=== PATIENT | female | born 1965 | race Caucasian/White ===

== ENCOUNTER 2018-07-24 16:27 | Outpatient (CLI) | payer MEDICARE, SELFPAY ==
--- NOTE | 2018-07-24 16:14 | DI.RAD_ITS ---
SYMPTOM/DIAGNOSIS: COUGH, R05, METASTATIC BREAST CA, C50.919 PA AND LATERAL CHEST: No priors. Heart size and pulmonary vasculature are within normal limits. There is mild elevation of the right hemidiaphragm. Linear opacities are seen in the right base which may represent scarring or atelectasis. There are air space opacities seen in the lungs bilaterally, predominantly in the left lung base, lower lobe and lingula. No gross effusions or pneumothoraces are identified. There do appear to be bilateral healed rib fractures. Surgical clips are seen over the right hemithorax and in the right axilla. IMPRESSION: Bilateral opacities in the lungs, left greater than right. Differential considerations include atelectasis or pneumonia. Metastatic disease cannot be excluded. A CT scan of the chest with contrast should be considered for further evaluation.
--- NOTE | 2018-07-24 16:36 | DI.VRAD_ITS ---
EXAM: XR Chest, 2 Views EXAM DATE/TIME: 07/24/2018 4:16 PM CLINICAL HISTORY: 53 years old, female; Signs and symptoms; Other: Cough; Patient HX: Metastatic breast CA TECHNIQUE: XR of the chest, 2 views. COMPARISON: No relevant prior studies available. FINDINGS: Lungs: Linear opacities in the right lower lobe most likely represent scarring. Small airspace opacities project over the lingula. Pleural space: Unremarkable. No pleural effusion. No pneumothorax. Heart/Mediastinum: Unremarkable. No cardiomegaly. Bones/joints: Unremarkable for patient's age. Soft tissues: Surgical clips project over the right axilla and right breast. IMPRESSION: 1. Small airspace opacities project over the lingula. Given history of breast cancer, recommend further evaluation with CT. Or 2. Linear opacities in the right lower lobe most likely represent scarring. Dictated and Authenticated by: Dada Martínez MD. Ordering:NATASHA BEATTY MD
== END 2018-07-24 16:47 ==
PROVIDERS: PCP Nurse Practitioner; Visit Provider Family Medicine
DX: R05 Cough (principal); C50.919 Malignant neoplasm of unspecified site of unspecified female breast; J98.4 Other disorders of lung; R91.8 Other nonspecific abnormal finding of lung field
CPT/HCPCS: 71046

== ENCOUNTER 2018-07-27 01:33 | Outpatient (CLI) | payer MEDICARE, SELFPAY ==
[2018-07-27 14:00] LABS: CREATININE 0.67 mg/dL (0.55-1.02)
[2018-07-27] MEDS: Omnipaque 350 MG/ML 100 ML BTL IJ (14:53)
--- NOTE | 2018-07-27 14:57 | DI.CT_ITS ---
SYMPTOM/DIAGNOSIS: LUNG MASS, R91.8, COUGH, R05, METASTATIC BREAST CA, C50.919 , LINGULAR OPACITIES CHEST CT: Post contrast CT scan of the chest was performed. Comparison chest xray is . The thyroid gland is enlarged with multiple hypodense masses. The thyroid extends into the retrosternal region. The largest mass is seen in the right lobe of the thyroid gland and measures 2.5 cm. transverse by 2.3 cm. AP. Thyroid ultrasound may be obtained for further evaluation. The thoracic aorta is intact. No aneurysmal dilatation is seen. Heart size is within normal limits. No significant pericardial effusion is present. No significant mediastinal or axillary adenopathy is present. No pleural effusion or pneumothorax is identified. There are small areas of consolidation involving the medial aspect of the right lower lobe and the lateral aspect of the left lingula. No non calcified pulmonary nodules are present. There is scarring in the lungs. The tracheobronchial tree is unremarkable. There do appear to be areas of traction bronchiectasis within the left lingular infiltrate. There are several hypodense lesions within the liver. There are old healed bilateral rib fractures present. Degenerative changes are seen in the spine. IMPRESSION: 1. No pulmonary nodules or thoracic adenopathy. 2. Areas of consolidation involving the right lower lobe and the left lingula. These areas may represent pneumonia, scarring or atelectasis. 3. Multi nodular thyroid gland. If further imaging is warranted, an ultrasound may be obtained. 4. Several hypodense lesions seen within the liver. Comparison with prior CT scan is recommended if available.
== END 2018-07-27 01:53 ==
PROVIDERS: PCP Nurse Practitioner; Visit Provider Family Medicine
DX: R91.8 Other nonspecific abnormal finding of lung field (principal); R05 Cough; C50.919 Malignant neoplasm of unspecified site of unspecified female breast; R04.2 Hemoptysis; K76.9 Liver disease, unspecified
CPT/HCPCS: 36415; 71260; 82565; J3490

== ENCOUNTER 2018-08-02 12:53 | Outpatient (REF) | payer MEDICARE, SELFPAY ==
[2018-08-02 19:19] LABS: TSH (W/Ref FT4) 0.12 uIU/mL (0.358-3.74)
[2018-08-02 19:39] LABS: FREE T4 1.08 ng/dL (0.76-1.46)
== END 2018-08-02 13:13 ==
LOC: NCHCN 12:53
PROVIDERS: PCP Nurse Practitioner; Visit Provider Family Medicine
DX: E04.2 Nontoxic multinodular goiter (principal)
CPT/HCPCS: 84439; 84443

== ENCOUNTER 2018-12-11 09:20 | Outpatient (CLI) | payer MEDICARE, SELFPAY ==
--- NOTE | 2018-12-11 09:30 | DI.CT_ITS ---
SYMPTOM/DIAGNOSIS: BREAST CA, METS TO MULTIPLE SITES, C50.919, RESTAGING EVALUATION CHEST, ABDOMEN AND PELVIC CT: CT scan of the chest, abdomen and pelvis was performed following oral and intravenous contrast material. Comparison CT scan of the chest is 07/27/18. ABDOMEN AND PELVIS: There are no prior CT scans of the abdomen and pelvis for comparison. The liver is normal in size. There are several round, well circumscribed hypodense lesions in the liver. Some are too small for further characterization. The larger ones appear mostly to be of fluid density and may represent cysts. These appear stable compared to the examination from 2018. The portal, superior mesenteric and splenic veins are patent. The gallbladder is negative. There is no biliary ductal dilatation. The pancreas, spleen and adrenal glands are unremarkable. The kidneys show normal and symmetric enhancement. No solid renal mass or obstruction is identified. There is a cyst in the mid pole of the right kidney. The urinary bladder is intact. Reproductive organs are unremarkable. The abdominal aorta is of normal caliber. No significant abdominal or pelvic adenopathy, ascites or pneumoperitoneum is present. The bowel shows no evidence of obstruction or inflammation. No findings to suggest an acute appendicitis are present. No aggressive osseous lesions are seen. A hemangioma is seen in the L 1 vertebral body. This is unchanged compared to 07/27/18. IMPRESSION: 1. Multiple hypodense lesions seen within the liver which appear stable. Sonographic correlation is recommended to assess for cystic or solid nature. No new hepatic lesions are identified. 2. Right renal cyst. CHEST: There is again seen an enlarged, multinodular thyroid gland extending into the retrosternal region. The thoracic aorta is of normal caliber. Heart size is within normal limits. No significant pericardial effusion is present. No significant thoracic adenopathy is appreciated. No pleural effusion or pneumothorax is identified. No pulmonary nodules are seen. There is scarring or atelectasis in the right lung. Tracheobronchial tree is unremarkable. No aggressive osseous lesions are identified in the spine. There are bilateral old rib fractures which appear stable. IMPRESSION: 1. No evidence of thoracic adenopathy or pulmonary nodules. 2. Enlarged multi nodular thyroid gland. 3. COPD. 4. Stable bilateral old rib fractures.
[2018-12-11 10:47] LABS: Abs Immature Grans 0.03 k/cumm (0.0-0.09); Absolute Basophil Count 0.03 k/cumm (0.0-0.2); Absolute Eosinophil Count 0.12 k/cumm (0.0-0.7); Absolute Lymphocyte Count 2.22 k/cumm (1.2-3.4); Absolute Neutrophil Count 3.21 k/cumm (1.2-6.7); Basophils % 0.5; HCT 41.9 % (36.0-46.0); HGB 14.1 g/dL (12.0-15.5); Immature Grans % 0.5; Lymphocytes % 36.3; Mean Corp. HGB Concentration 33.7 g/dL (32.0-36.0); Mean Corpuscular Hemoglobin 29.4 pg (27.0-33.0); Mean Corpuscular Volume 87.3 fL (80-95); Mean Platelet Volume 8.5 fL (8.0-11.0); Monocytes % 8.2; Neutrophils % 52.5; Platelet Count 216 x1000/uL (130-400); RBC Distribution Width 13.2 % (11.7-14.6); White Blood Cell Count 6.11 k/cumm (4.4-10.8)
[2018-12-11 11:02] LABS: ALT 28 U/L (12-78); AST 18 U/L (15-37); Albumin 3.4 g/dL (3.4-5.0); Alkaline Phosphatase 56 U/L (46-116); Anion Gap 5.8 mmol/L (3-11); BUN 17 mg/dL (7-18); Bilirubin, Total 0.4 mg/dL (0.2-1.0); CO2 30.2 mmol/L (21.0-32.0); Chloride 102 mmol/L (98-107); Glucose 98 mg/dL (70-100); Sodium 138 mmol/L (136-145); Total Protein 7.1 g/dL (6.4-8.2)
[2018-12-11] MEDS: Omnipaque 350 MG/ML 50 ML BTL IJ (11:40)
[2018-12-11] MEDS: Breeza Beverage 473 ML BTL PO (11:41)
[2018-12-11] MEDS: Omnipaque 350 MG/ML 100 ML BTL IJ (11:41)
--- NOTE | 2018-12-11 13:57 | DI.NM_ITS ---
SYMPTOM/DIAGNOSIS: BREAST CA, METS TO MULTIPLE SITES, C50/919, RESTAGING EXAM BONE SCAN: The patient received 25.8 millicuries of Technetium 99 M MDP and whole body imaging was performed. Comparison CT scans from 07/27/18 and 12/11/18 were reviewed. There is normal radiotracer uptake in the kidneys and urinary bladder. Foci of increased radiotracer uptake are seen in the left ninth and the right ninth rib posterior, unchanged from previous exams. IMPRESSION: No findings to suggest osseous metastatic disease.
[2018-12-12 09:11] LABS: CEA 0.5 ng/ml
== END 2018-12-11 09:40 ==
PROVIDERS: PCP Nurse Practitioner; Visit Provider Internal Medicine
DX: C50.919 Malignant neoplasm of unspecified site of unspecified female breast (principal); Z12.89 Encounter for screening for malignant neoplasm of other sites; E04.2 Nontoxic multinodular goiter; J44.9 Chronic obstructive pulmonary disease, unspecified; K76.89 Other specified diseases of liver
CPT/HCPCS: 36415; 74177; 78306; 80053; 71260; 82378; 85025; J3490; Q9967

== ENCOUNTER 2018-12-12 00:44 | Outpatient (CLI) | payer MEDICARE, SELFPAY ==
[2018-12-12] MEDS: Gadoterate meglumine 20 ML VIAL 15 ML IVP (11:32)
--- NOTE | 2018-12-12 11:46 | DI.MRI_ITS ---
SYMPTOMS/DIAGNOSIS: RESTAGING, BREAST CA WITH METS TO MULTIPLE SITES, H/O BRAIN METS, C50.919, C79.31 MRI OF THE BRAIN: Pre and post contrast examination was performed. Comparison CT scan is 03/24/13. There are again seen areas of encephalomalacia and postsurgical defects in the left and right parietal lobes. These appear stable compared to 03/24/13. The diffusion weighted images show no evidence of an acute infarct. The ventricles and sulci are consistent with the patient's age. There are areas of T2 hyperintensity in the white matter most consistent with small vessel ischemic disease. Following contrast administration, no enhancing masses are appreciated to suggest new intracranial metastatic disease. The ventricles are intact. The basilar cisterns are patent. There is a mucus retention cyst or polyp in the maxillary sinuses bilaterally. There is mucosal thickening seen in the sphenoid sinuses. There is a flow void seen in the [place]. IMPRESSION: 1. No evidence of intracranial metastases. 2. Stable areas of encephalomalacia, which appear to represent postsurgical change. 3. Small vessel ischemic disease.
== END 2018-12-12 01:04 ==
PROVIDERS: PCP Nurse Practitioner; Visit Provider Internal Medicine
DX: C50.919 Malignant neoplasm of unspecified site of unspecified female breast (principal); C79.31 Secondary malignant neoplasm of brain; I67.82 Cerebral ischemia; J33.8 Other polyp of sinus
CPT/HCPCS: 70553; 80053; 86304; 85025; 86300

== ENCOUNTER 2018-12-18 11:13 | Outpatient (CLI) | payer MEDICARE, SELFPAY ==
[2018-12-18 11:51] LABS: Abs Immature Grans 0.02 k/cumm (0.0-0.09); Absolute Basophil Count 0.03 k/cumm (0.0-0.2); Absolute Eosinophil Count 0.11 k/cumm (0.0-0.7); Absolute Lymphocyte Count 1.92 k/cumm (1.2-3.4); Absolute Monocyte Count 0.48 k/cumm (0.11-0.7); Absolute Neutrophil Count 3.62 k/cumm (1.2-6.7); Basophils % 0.5; Eosinophils % 1.8; HGB 14.9 g/dL (12.0-15.5); Immature Grans % 0.3; Lymphocytes % 31.1; Mean Corp. HGB Concentration 33.1 g/dL (32.0-36.0); Mean Corpuscular Hemoglobin 29.1 pg (27.0-33.0); Mean Corpuscular Volume 87.9 fL (80-95); Mean Platelet Volume 8.4 fL (8.0-11.0); Monocytes % 7.8; Neutrophils % 58.5; Platelet Count 218 x1000/uL (130-400); RBC 5.12 m/cumm (4.00-5.20); RBC Distribution Width 13.4 % (11.7-14.6); White Blood Cell Count 6.18 k/cumm (4.4-10.8)
[2018-12-18 12:00] LABS: ALT 28 U/L (12-78); AST 18 U/L (15-37); Albumin 3.5 g/dL (3.4-5.0); Alkaline Phosphatase 57 U/L (46-116); Anion Gap 7.8 mmol/L (3-11); BUN 21 mg/dL (7-18); Bilirubin, Total 0.7 mg/dL (0.2-1.0); CO2 29.2 mmol/L (21.0-32.0); CREATININE 0.77 mg/dL (0.55-1.02); Calcium 9.5 mg/dL (8.5-10.1); Chloride 101 mmol/L (98-107); Glucose 86 mg/dL (70-100); Potassium 4.1 mmol/L (3.5-5.1); Sodium 138 mmol/L (136-145); Total Protein 7.5 g/dL (6.4-8.2)
[2018-12-19 17:09] LABS: Cancer Ag 15-3 12 U/mL (<30)
== END 2018-12-18 11:33 ==
PROVIDERS: PCP Nurse Practitioner; Visit Provider Internal Medicine
DX: C50.919 Malignant neoplasm of unspecified site of unspecified female breast (principal)
CPT/HCPCS: 36415; 80053; 86304; 85025; 86300

== ENCOUNTER 2019-03-19 15:10 | Outpatient (CLI) | payer MEDICARE, SELFPAY ==
[2019-03-19 15:46] LABS: Abs Immature Grans 0.02 k/cumm (0.0-0.09); Absolute Basophil Count 0.02 k/cumm (0.0-0.2); Absolute Eosinophil Count 0.11 k/cumm (0.0-0.7); Absolute Lymphocyte Count 1.82 k/cumm (1.2-3.4); Absolute Neutrophil Count 3.95 k/cumm (1.2-6.7); Basophils % 0.3; Eosinophils % 1.7; HCT 42.2 % (36.0-46.0); HGB 14.2 g/dL (12.0-15.5); Immature Grans % 0.3; Lymphocytes % 27.5; Mean Corp. HGB Concentration 33.6 g/dL (32.0-36.0); Mean Corpuscular Hemoglobin 29.6 pg (27.0-33.0); Mean Corpuscular Volume 88.1 fL (80-95); Mean Platelet Volume 8.7 fL (8.0-11.0); Monocytes % 10.6; Neutrophils % 59.6; Platelet Count 226 x1000/uL (130-400); RBC 4.79 m/cumm (4.00-5.20); RBC Distribution Width 12.3 % (11.7-14.6); White Blood Cell Count 6.62 k/cumm (4.4-10.8)
[2019-03-19 16:28] LABS: ALT 36 U/L (12-78); AST 18 U/L (15-37); Albumin 3.6 g/dL (3.4-5.0); Alkaline Phosphatase 80 U/L (46-116); Anion Gap 6.2 mmol/L (3-11); BUN 23 mg/dL (7-18); Bilirubin, Total 0.4 mg/dL (0.2-1.0); CO2 32.8 mmol/L (21.0-32.0); Calcium 10.6 mg/dL (8.5-10.1); Chloride 101 mmol/L (98-107); Glucose 90 mg/dL (70-100); Potassium 3.7 mmol/L (3.5-5.1); Sodium 140 mmol/L (136-145); Total Protein 6.9 g/dL (6.4-8.2)
[2019-03-20 17:33] LABS: Cancer Ag 15-3 11 U/mL (<30)
== END 2019-03-19 15:30 ==
PROVIDERS: PCP Nurse Practitioner; Visit Provider Internal Medicine
DX: C50.919 Malignant neoplasm of unspecified site of unspecified female breast (principal)
CPT/HCPCS: 36415; 80053; 86304; 85025; 86300

== ENCOUNTER 2019-05-15 00:35 | Outpatient (CLI) | payer MEDICARE, SELFPAY ==
[2019-05-15 09:55] LABS: CREATININE 0.63 mg/dL (0.55-1.02)
[2019-05-15] MEDS: Normal Saline Flush 10 ML SYR IVP (10:05)
[2019-05-15] MEDS: Gadoterate meglumine 20 ML VIAL 15 ML IVP (10:06)
--- NOTE | 2019-05-15 10:30 | DI.MRI_ITS ---
SYMPTOM/DIAGNOSIS: BREAST CANCER TO MULTIPLE SITES C50.919 MRI BRAIN: Routine pre and post contrast examination was performed. Comparison 12/12/18 There are again seen areas of encephalomalacia involving both parietal lobes and right occipital lobe. These areas are stable compared to the prior examination. The ventricles and sulci are consistent with the patient's age. The ventricles are intact. The basilar cisterns are patent. There is a normal flow void in the [place]. The diffusion weighted images show no evidence of restricted diffusion. No intracranial mass is seen. No enhancing lesions are identified. Areas of T2 hyperintensity are present in the white matter on the FLAIR and T2 weighted images consistent with small vessel ischemic disease. The pituitary gland is grossly unremarkable. IMPRESSION: No change in appearance of the brain compared to the prior examination. No evidence of new intracranial metastatic disease.
--- NOTE | 2019-05-15 11:15 | DI.CT_ITS ---
SYMPTOM/DIAGNOSIS: BREAST CANCER METASTASIZED TO MULTIPLE SITES CT CHEST, ABDOMEN AND PELVIS: CT scan of the chest, abdomen and pelvis was performed following oral and intravenous contrast material. Comparison is 12/11/18 CT SCAN OF ABDOMEN AND PELVIS: Multiple hypodense masses are seen in the liver. These appear stable. No new hepatic lesions are seen. The jyoti, superior mesenteric and splenic veins are patent. The gallbladder is negative. No biliary ductal dilatation is seen. The pancreas and spleen are unremarkable. The adrenal glands appear stable. There is a right renal cyst. The kidneys are otherwise unremarkable as is the urinary bladder. The reproductive organs are unremarkable. The abdominal aorta is of normal caliber. No significant abdominal or pelvic adenopathy, ascites or pneumoperitoneum is present. The bowel is unremarkable. The bones are unchanged. No aggressive osseous lesion is identified. The bowel is unremarkable. IMPRESSION: Stable hepatic lesions. No evidence to suggest new abdominal or pelvic metastatic disease. CT SCAN OF CHEST: The thoracic aorta is intact. Heart size is within normal limits. No significant pericardial effusion is seen. The pulmonary arteries appear unremarkable. No significant thoracic adenopathy is seen. No pleural effusion or pneumothorax is identified. No pulmonary nodules are present. There is scarring in the lungs. No focal consolidating infiltrates seen. The tracheobronchial tree is unremarkable. Old bilateral healed rib fractures are seen. No destructive o lytic or sclerotic lesions are appreciated. Degenerative changes are seen in the spine. IMPRESSION: No evidence of thoracic metastatic disease.
[2019-05-15] MEDS: Omnipaque 350 MG/ML 100 ML BTL IJ (11:17)
[2019-05-15] MEDS: Breeza Beverage 473 ML BTL 950 ML PO (11:18)
== END 2019-05-15 00:55 ==
PROVIDERS: Visit Provider Internal Medicine
DX: C50.919 Malignant neoplasm of unspecified site of unspecified female breast (principal); C79.31 Secondary malignant neoplasm of brain; K76.89 Other specified diseases of liver; G93.89 Other specified disorders of brain
CPT/HCPCS: 70553; 74177; 80053; 86304; 71260; 82565; 85025; 86300; J3490

== ENCOUNTER 2019-09-30 13:59 | Outpatient (CLI) | payer MEDICARE, SELFPAY ==
[2019-09-30 14:56] LABS: Abs Immature Grans 0.04 k/cumm (0.0-0.09); Absolute Basophil Count 0.03 k/cumm (0.0-0.2); Absolute Eosinophil Count 0.11 k/cumm (0.0-0.7); Absolute Lymphocyte Count 2.05 k/cumm (1.2-3.4); Absolute Monocyte Count 0.74 k/cumm (0.11-0.7); Absolute Neutrophil Count 4.08 k/cumm (1.2-6.7); Basophils % 0.4; Eosinophils % 1.6; HCT 43.5 % (36.0-46.0); HGB 14.3 g/dL (12.0-15.5); Immature Grans % 0.6; Lymphocytes % 29.1; Mean Corp. HGB Concentration 32.9 g/dL (32.0-36.0); Mean Corpuscular Hemoglobin 29.1 pg (27.0-33.0); Mean Corpuscular Volume 88.4 fL (80-95); Mean Platelet Volume 8.5 fL (8.0-11.0); Monocytes % 10.5; Neutrophils % 57.8; Platelet Count 262 x1000/uL (130-400); RBC 4.92 m/cumm (4.00-5.20); RBC Distribution Width 13.4 % (11.7-14.6); White Blood Cell Count 7.05 k/cumm (4.4-10.8)
[2019-09-30 15:13] LABS: ALT 33 U/L (14-59); AST 19 U/L (15-37); Albumin 3.4 g/dL (3.4-5.0); Alkaline Phosphatase 55 U/L (46-116); BUN 17 mg/dL (7-18); Bilirubin, Total 0.4 mg/dL (0.2-1.0); CREATININE 0.67 mg/dL (0.55-1.02); Calcium 8.9 mg/dL (8.5-10.1); Chloride 105 mmol/L (98-107); Glucose 88 mg/dL (74-106); Potassium 4.2 mmol/L (3.5-5.1); Sodium 143 mmol/L (136-145); Total Protein 6.8 g/dL (6.4-8.2)
[2019-10-01 14:39] LABS: Cancer Ag 15-3 11 U/mL (<30)
== END 2019-09-30 14:19 ==
PROVIDERS: PCP Nurse Practitioner; Visit Provider Internal Medicine
DX: C50.919 Malignant neoplasm of unspecified site of unspecified female breast (principal)
CPT/HCPCS: 36415; 80053; 86304; 85025; 86300

== ENCOUNTER 2019-12-18 13:00 | Outpatient (CLI) | payer MEDICARE, SELFPAY ==
[2019-12-18 13:44] LABS: Abs Immature Grans 0.01 k/cumm (0.0-0.09); Absolute Basophil Count 0.04 k/cumm (0.0-0.2); Absolute Eosinophil Count 0.19 k/cumm (0.0-0.7); Absolute Lymphocyte Count 1.48 k/cumm (1.2-3.4); Absolute Monocyte Count 0.59 k/cumm (0.11-0.7); Basophils % 0.8; Eosinophils % 3.8; HGB 14.6 g/dL (12.0-15.5); Immature Grans % 0.2 %; Lymphocytes % 29.5; Mean Corp. HGB Concentration 33.2 g/dL (32.0-36.0); Mean Corpuscular Hemoglobin 29.7 pg (27.0-33.0); Mean Corpuscular Volume 89.6 fL (80-95); Mean Platelet Volume 8.5 fL (8.0-11.0); Monocytes % 11.8; Neutrophils % 53.9; Platelet Count 241 x1000/uL (130-400); RBC 4.91 m/cumm (4.00-5.20); White Blood Cell Count 5.01 k/cumm (4.4-10.8)
[2019-12-18 14:31] LABS: ALT 37 U/L (14-59); AST 24 U/L (15-37); Albumin 3.5 g/dL (3.4-5.0); Alkaline Phosphatase 91 U/L (46-116); Anion Gap 10.6 mmol/L (3-11); BUN 20 mg/dL (7-18); Bilirubin, Total 0.5 mg/dL (0.2-1.0); CO2 29.4 mmol/L (21.0-32.0); CREATININE 0.91 mg/dL (0.55-1.02); Calcium 9.3 mg/dL (8.5-10.1); Chloride 102 mmol/L (98-107); Glucose 152 mg/dL (74-106); Potassium 3.9 mmol/L (3.5-5.1); Sodium 142 mmol/L (136-145); Total Protein 6.7 g/dL (6.4-8.2)
[2019-12-19 15:23] LABS: Cancer Ag 15-3 12 U/mL (<30)
== END 2019-12-18 13:20 ==
PROVIDERS: PCP Nurse Practitioner; Visit Provider Internal Medicine
DX: C50.919 Malignant neoplasm of unspecified site of unspecified female breast (principal)
CPT/HCPCS: 36415; 80053; 86304; 85025; 86300

== ENCOUNTER 2020-04-02 02:26 | Outpatient (CLI) | payer MEDICARE, SELFPAY ==
[2020-04-02 11:54] LABS: Abs Immature Grans 0.02 k/cumm (0.0-0.09); Absolute Basophil Count 0.02 k/cumm (0.0-0.2); Absolute Eosinophil Count 0.14 k/cumm (0.0-0.7); Absolute Lymphocyte Count 1.81 k/cumm (1.2-3.4); Absolute Monocyte Count 0.47 k/cumm (0.11-0.7); Absolute Neutrophil Count 2.75 k/cumm (1.2-6.7); Basophils % 0.4; Eosinophils % 2.7; HCT 43.2 % (36.0-46.0); HGB 14.4 g/dL (12.0-15.5); Immature Grans % 0.4 %; Lymphocytes % 34.7; Mean Corp. HGB Concentration 33.3 g/dL (32.0-36.0); Mean Corpuscular Hemoglobin 29.3 pg (27.0-33.0); Mean Platelet Volume 8.4 fL (8.0-11.0); Neutrophils % 52.8; Platelet Count 268 x1000/uL (130-400); RBC 4.91 m/cumm (4.00-5.20); RBC Distribution Width 12.9 % (11.7-14.6); White Blood Cell Count 5.21 k/cumm (4.4-10.8)
[2020-04-02 12:05] LABS: ALT 37 U/L (14-59); AST 27 U/L (15-37); Albumin 3.4 g/dL (3.4-5.0); Alkaline Phosphatase 133 U/L (46-116); Anion Gap 11.3 mmol/L (3-11); BUN 20 mg/dL (7-18); Bilirubin, Total 0.5 mg/dL (0.2-1.0); CO2 24.7 mmol/L (21.0-32.0); CREATININE 0.89 mg/dL (0.55-1.02); Calcium 8.9 mg/dL (8.5-10.1); Chloride 102 mmol/L (98-107); Glucose 131 mg/dL (74-106); Potassium 3.8 mmol/L (3.5-5.1); Sodium 138 mmol/L (136-145); Total Protein 7.1 g/dL (6.4-8.2)
[2020-04-03 16:56] LABS: Cancer Ag 15-3 12 U/mL (<30)
== END 2020-04-02 02:46 ==
PROVIDERS: PCP Nurse Practitioner; Visit Provider Internal Medicine
DX: C50.919 Malignant neoplasm of unspecified site of unspecified female breast (principal)
CPT/HCPCS: 36415; 80053; 86304; 85025; 86300

== ENCOUNTER 2020-04-03 02:45 | Outpatient (CLI) | payer MEDICARE, SELFPAY ==
--- NOTE | 2020-04-03 | DI.DEXA_ITS ---
EXAM: XR DEXA BONE DENSITY W/WO LYDIA CLINICAL HISTORY: SCREENING FOR OSTEOPOROSIS IN POSTMENOPAUSAL WOMAN,Z78.0,Z79.811,USE OF TECHNIQUE: COMPARISON: No exams were available for comparison FINDINGS: Lateral Spine Image: Unremarkable. No compression deformities identified. Left hip: Total T-Score: -1.6 Total Z-Score: -1.0 T- and Z-scores: Consistent with osteopenia. Lumbar Spine: Total T-Score: -3.9 Total Z-Score: -2.9 T- and Z-scores: Consistent with osteoporosis and high fracture risk. IMPRESSION: Osteoporosis in the lumbar spine.
--- NOTE | 2020-04-03 | DI.US_ITS ---
EXAM: US RENAL CLINICAL HISTORY: BREAST CA METASTASIZED,C50/919,RT KIDNEY LESION,28.9, F/U ABNL CT SHOWING. TECHNIQUE: Rosas scale, color and spectral Doppler were used. COMPARISON: CT CT CHEST/ABD/PEL W from 12/11/[address] CHEST/ABD/PEL W from 05/15/[address] CHEST/ABD/PEL W from 05/15/[address] CHEST ABDOMEN PELVIS W CONTRAST (GENERIC) from 12/02/2019 FINDINGS: Renal size in cm: Right: 10.4 left: 9.7 Echogenicity: Normal. Hydronephrosis: No. Cyst or mass: There is a 1.2 x 1.7 x 1.4 cm simple avascular cyst in the midpole of the right kidney. This would appear to correspond to the CT finding. No solid renal mass is seen. Nephrolithiasis: No. Other findings: None. Bladder:Normal. Ureteral jets: Right: Visualized and unremarkable. Left: Visualized and unremarkable. Prevoid vol:93 cc Postvoid vol:14 cc DOPPLER FINDINGS: Normal and symmetric blood flow to the kidneys. IMPRESSION: 1.2 x 1.7 x 1.4 cm simple avascular cyst in the midpole of the right kidney. This appears to corresp ond to the CT abnormality. No evidence of a solid renal mass. DATA REPOSITORY:
== END 2020-04-03 03:05 ==
PROVIDERS: PCP Nurse Practitioner; Visit Provider Internal Medicine
DX: M81.0 Age-related osteoporosis without current pathological fracture (principal); Z78.0 Asymptomatic menopausal state; M85.88 Other specified disorders of bone density and structure, other site; N28.1 Cyst of kidney, acquired; N28.9 Disorder of kidney and ureter, unspecified; Z85.3 Personal history of malignant neoplasm of breast
CPT/HCPCS: 76770; 77080

== ENCOUNTER 2020-09-15 13:31 | Outpatient (REF) | payer MEDICARE, SELFPAY ==
[2020-09-15 20:22] LABS: Bilirubin Negative (Negative); Blood Negative (Negative); Clarity Turbid (Clear); Glucose Negative (Negative); Ketones Negative (Negative); Leukocyte Esterase Trace (Negative); Nitrite Negative (Negative); Specific Gravity >= 1.030 (1.005-1.025); Urobilinogen 0.2 EU/dL (Up TO 0.2)
[2020-09-15 20:34] LABS: C & S Indicated? C&S Done As Ordered; Crystals Many Amorphous HPF (Negative)
== END 2020-09-15 13:51 ==
LOC: NCHCN 13:31
PROVIDERS: PCP Nurse Practitioner; Visit Provider Nurse Practitioner
DX: N39.0 Urinary tract infection, site not specified (principal)
CPT/HCPCS: 81003; 81015; 87086

== ENCOUNTER 2020-10-02 11:32 | Outpatient (REF) | payer MEDICARE, SELFPAY | END 2020-10-02 11:52 | LOC: NCHCN 11:32 | PROVIDERS: PCP Nurse Practitioner; Visit Provider Nurse Practitioner Family | DX: N39.0 Urinary tract infection, site not specified (principal) | CPT/HCPCS: 87086 ==

== ENCOUNTER → 2020-11-19 13:21 | Outpatient (BNVA) | payer MEDICARE, MEDICAID, SELFPAY | PROVIDERS: PCP Nurse Practitioner; Referring Provider Nurse Practitioner; Visit Provider Nurse Practitioner Gerontology | DX: R31.29 Other microscopic hematuria; R35.0 Frequency of micturition; Z85.841 Personal history of malignant neoplasm of brain | CPT/HCPCS: 81002; 99204 ==

== ENCOUNTER 2020-11-19 21:43 | Outpatient (REF) | payer MEDICARE, MEDICAID, SELFPAY | END 2020-11-19 22:03 | LOC: LBN 21:43 | PROVIDERS: PCP Nurse Practitioner; Visit Provider Nurse Practitioner Gerontology | DX: N39.0 Urinary tract infection, site not specified (principal) | CPT/HCPCS: 87086 ==

== ENCOUNTER → 2020-11-26 11:32 | Outpatient (BNVA) | payer MEDICARE, MEDICAID, SELFPAY | PROVIDERS: PCP Nurse Practitioner; Referring Provider Nurse Practitioner; Visit Provider Nurse Practitioner Gerontology | DX: R31.29 Other microscopic hematuria (principal) | CPT/HCPCS: 99214 ==

== ENCOUNTER 2020-12-01 01:22 | Outpatient (CLI) | payer MEDICARE, MEDICAID, SELFPAY ==
--- NOTE | 2020-12-01 06:45 | DI.US_ITS ---
EXAM: US RENAL CLINICAL HISTORY: micro hemATURIA w/ brain, lung and breast ca hx,R31.29. TECHNIQUE: Rosas scale, color and spectral Doppler were used. COMPARISON: CT CT CHEST ABDOMEN PELVIS W CONTRAST (GENERIC) from 12/02/2019 US US RENAL from 04/03/2020 FINDINGS: Renal size in cm: Right: 10.4. Left: 10.5. Echogenicity: Normal. Hydronephrosis: No. Cyst or mass: There is a 1.6 x 1.4 x 1.2 cm simple cyst in the midpole of the right kidney. This is stable compared to the CT scan from 12/02/2019. No further workup is recommended. Nephrolithiasis: No. Other findings: None. Bladder:Normal. Ureteral jets: Right: Not visualized on this examination. Left: Not visualized on this examination. Prevoid vol:55 cc Postvoid vol:The patient was unable to void during the examination. Renal color flow: Symmetric and within normal limits. IMPRESSION: No evidence of a solid renal mass, nephrolithiasis or hydronephrosis. Stable simple right renal cyst. No further workup recommended. DATA REPOSITORY:
== END 2020-12-01 01:23 ==
LOC: DI 01:23
PROVIDERS: PCP Nurse Practitioner; Visit Provider Nurse Practitioner Gerontology
DX: R31.29 Other microscopic hematuria (principal); N28.1 Cyst of kidney, acquired
CPT/HCPCS: 76770

== ENCOUNTER → 2020-12-09 09:04 | Outpatient (BNVA) | payer MEDICARE, MEDICAID, SELFPAY | PROVIDERS: PCP Nurse Practitioner; Referring Provider Nurse Practitioner; Visit Provider Nurse Practitioner Gerontology | DX: R31.29 Other microscopic hematuria (principal); Z11.59 Encounter for screening for other viral diseases | CPT/HCPCS: 99442 ==

== ENCOUNTER 2020-12-17 07:02 | Day surgery (SDC) | payer MEDICARE, SELFPAY ==
[2020-12-17 07:25] VITALS: BP 110/67; PULSE 72; RESP 16; TEMP 36.5; O2SAT 96
--- NOTE | 2020-12-17 07:45 | DI.RAD_ITS ---
EXAM: XR RETROGRADE IN OR CLINICAL HISTORY: hematuria. TECHNIQUE: 2D digital imaging was performed. COMPARISON: No exams were available for comparison FINDINGS: Fluoroscopy was provided during urologic procedure. Total fluoroscopy time 32.3 seconds; cumulative dose 5.46mGy IMPRESSION: DATA REPOSITORY: RADIATION DOSE DELIVERED:
[2020-12-17] MEDS: Lactated Ringers 1,000 ML 80 ML IV (08:04)
--- NOTE | 2020-12-17 08:10 | W.PM.HP.N ---
Date of service: 12/17/20 Time of Service: 08:11 Assessment and Plan Assessment and plan (1) Microscopic hematuria: Status: Acute Assessment and plan: She has had a renal ultrasound which showed no solid masses but a right renal cyst. She presents for cystoscopy and retrograde pyelogram to complete her hematuria work-up. History of Present Illness History of Present Illness Chief Complaint: Microscopic hematuria Narrative: This is a 55-year-old woman who developed urinary incontinence and discomfort when voiding. She was found to have a urinary tract infection. Once the infection was successfully treated, she continued to have microscopic hematuria. She was evaluated with a renal ultrasound which showed no solid renal masses but there was a right-sided renal cyst. She presents now for cystoscopy and retrograde pyelogram to complete her hematuria work-up She is not seeing any gross hematuria at this time. Review of Systems Narrative: No fevers or chills No dysphasia Hx hypothyroidism. No diabetes No shortness of breath, cough or hemoptysis No chest pain or palpitations No nausea, vomiting, hepatitis, ulcers, jaundice, diarrhea or constipation No peripheral neuropathy No bleeding disorders or anemia No gout [facility] Medical History (Updated 12/17/20 @ 07:19 by Darshan Sam) Anxiety with depression Balance problem Degenerative joint disease Elevated blood sugar HLD (hyperlipidemia) Left foot infection Liver nodule Lung mass 714X [place] inhalation medication. States she had several lung tumors treated with medication and when she blew her nose they all came out. Also had radiation and chemotherapy. Metastatic breast cancer Pneumonia Risk for falls Seizure pt. states this was 2011, she had three tumors in her brain, only had the one seizure. States hasn't required any follow-up Subclinical hyperthyroidism Urinary frequency UTI (urinary tract infection) Surgical History (Updated 12/17/20 @ 07:19 by Darshan Sam) History of brain tumor 3 brain tumors removed 2011. History of lumpectomy of right breast 2006 Social History Smoking/Tobacco Use Status: Never Smoking risk assessment performed?: Yes Alcohol Intake: never Drug use: Occasionally Substance use type: marijuana Current gender identity: female Do you feel safe at home: Yes Do you feel safe in your relationship?: Yes Meds Home Medications and Allergies Home Medications Medication Instructions Recorded Confirmed Type citalopram [Celexa] 20 mg PO HS 03/24/13 12/17/20 History acetaminophen [Tylenol] 325 mg PO DAILY NS 11/20/17 12/15/20 History biotin 5 mg PO DAILY NS 11/20/17 12/17/20 History calcium carbonate [Tums] 200 mg PO DAILY tab.chew NS 11/20/17 12/17/20 History letrozole 2.5 mg PO DAILY tab-cap NS 11/20/17 12/17/20 History multivitamin 1 ea PO DAILY NS 11/20/17 12/17/20 History aspirin 81 mg tablet,delayed 81 mg PO DAILY 12/09/20 12/17/20 History release Lactobacillus reuteri [Probiotica] cell PO DAILY AM 12/17/20 History qupmqaa-[id number]-wstv 1 tab PO 12/17/20 History Allergies Allergy/AdvReac Type Severity Reaction Status Date / Time aprepitant [From Emend] AdvReac Intermediate flushing Unverified 12/15/20 13:35 and cramping Exam Const General: cooperative, comfortable and no acute distress Neck Neck: supple Resp Effort & Inspection: normal respiratory effort Auscultation: clear to auscultation bilaterally Cardio Rate: regular rate Rhythm: regular rhythm GI Palpation: soft and no masses Neuro General: patient alert, patient awake and patient oriented x3 Results Last Vital Signs Temp 36.5 C 12/17/20 07:25 Pulse 72 12/17/20 07:25 Resp 16 12/17/20 07:25 BP 110/67 12/17/20 07:25 Pulse Ox 96 12/17/20 07:25 COVID-19 Screening Have you, or household traveled for leisure in last 14 days?: No Had IN PERSON contact w/suspected or confirmed C-19 person: No
[2020-12-17] MEDS: ceFAZolin 1 GM/50 ML BAG IVPB (08:45)
[2020-12-17] MEDS: Lidocaine 2% Jelly 6 ML SYR (09:00)
[2020-12-17] MEDS: Omnipaque 300 MG/ML 50 ML BTL (09:05)
--- NOTE | 2020-12-17 09:08 | W.PM.DSUDISC ---
Discharge Plan Disposition Patient Disposition: HOME Condition: Stable Discharge Details Reason For Visit: microscopic hematuria Attending Provider: Landen Triana Primary Care Provider: Holley Edwards Home Meds and New Rx's Prescriptions: No Action aspirin [Adult Low Dose Aspirin] 81 mg tablet,delayed release (DR/EC) 81 mg PO DAILY RF: 0 acetaminophen [Tylenol] 325 MG tablet 325 mg PO DAILY RF: 0 biotin 5 MG capsule 5 mg PO DAILY RF: 0 calcium carbonate [Tums] 200 MG tablet,chewable 200 mg PO DAILY RF: 0 letrozole 2.5 MG tablet 2.5 mg PO DAILY RF: 0 multivitamin 1 EACH capsule 1 ea PO DAILY RF: 0 citalopram [Celexa] 10 MG tablet 20 mg PO HS RF: 0 Probiotica 100 million cell Tablet,Chewable PO DAILY AM RF: 0 [id number]-[id number]-kqwm 333-133-5 mg Tablet 1 tab PO RF: 0 Discharge Instructions Additional Instructions: followup 1 year for urinalysis does not need 2 week followup for pathology Activity:: Activity as Tolerated Shower/Bathe:: 24 hours Diet:: As Tolerated Discharge Orders Discharge Orders: Discharge Order (Routine); Ordered 12/17/20 Ordered By: Landen Triana DS: Diagnosis Discharge Diagnosis (1) Microscopic hematuria: Status: Acute
--- NOTE | 2020-12-17 09:23 | W.PM.OP ---
Date of service: 12/17/20 Time of Service: 09:23 Operative Note Operative Note DATE OF PROCEDURE: 12/17/20 PRE-OP DIAGNOSIS: Microscopic hematuria PROCEDURE: Cystoscopy with bilateral retrograde pyelograms SURGEON: Landen Triana ANESTHESIA TYPE: General:No Airway Refer to Anesthesia Record ESTIMATED BLOOD LOSS: 5 PATHOLOGY: none sent COMPLICATIONS: None Patient was transported to: same day Patient's condition: stable Indications: This is a 55-year-old woman who was identified as having lower urinary tract symptoms. She was treated for urinary tract infection but her urinalysis continued to show 3-5 red cells per high-powered field. She was evaluated with a renal ultrasound which showed a simple right renal cyst but no solid renal masses and no stones. She presents for cystoscopy p.m. retrograde pyelogram to complete her hematuria work-up. Findings: Normal bladder and normal retrograde pyelogram Procedure Description: The patient was brought to the operating room on 12/17/2020. She was given a preoperative dose of IV antibiotics. She was given general anesthesia without intubation. She was positioned in the dorsal lithotomy position. Her genitalia was prepped and draped. 2% Xylocaine jelly was instilled into the urethra to act as a local anesthetic. A 22 [place] rigid cystoscope sheath was passed through the urethra into the bladder. The bladder was inspected using both a 30 and the 70 degree lens. Both ureteral orifice ease appeared normal. No blood was seen coming from either side. The remainder of the bladder wall was smooth with no papillary or nodular lesions. We then passed a 6 [place] access catheter issue the scope and maneuvered the tip of the catheter into each ureteral orifice. Retrograde pyelograms were obtained by injecting Omnipaque through the catheter under fluoroscopic guidance. Both ureters and collecting systems appeared normal. Both sides drained promptly on a 5-minute drainage film. Based on today's examination, I find no evidence of significant bladder or urinary tract pathology. The bladder was emptied and the scope was removed. The current AUA recommendations for microscopic hematuria include a microscopic urinalysis yearly and a repeat work-up in 3 to 5 years if the hematuria persists.
[2020-12-17 09:53] VITALS: BP 92/57; PULSE 64; RESP 16; TEMP 36.4; O2SAT 93
== END 2020-12-17 10:23 | disposition home or self-care (01) ==
PROVIDERS: PCP Nurse Practitioner; Visit Provider Urology
PROC: (CPT 74450; principal; 2020-12-17 08:30)
DX: R31.29 Other microscopic hematuria (principal); N28.1 Cyst of kidney, acquired; F41.8 Other specified anxiety disorders; E78.5 Hyperlipidemia, unspecified
CPT/HCPCS: 52005; 81025; NC; 74420; J0690; J1885; J2001; J2250; J2405; Q9967

== ENCOUNTER 2021-01-07 20:57 | Outpatient (REF) | payer MEDICARE, SELFPAY | END 2021-01-07 20:58 | disposition home or self-care (01) | LOC: NCHCN 20:57 | PROVIDERS: PCP Nurse Practitioner; Visit Provider Nurse Practitioner Family | DX: R31.9 Hematuria, unspecified (principal) | CPT/HCPCS: 87086 ==

== ENCOUNTER 2021-03-23 02:56 | Outpatient (CLI) | payer MEDICARE, SELFPAY ==
[2021-03-23 15:12] LABS: Abs Immature Grans 0.04 10^3/uL (0.0-0.06); Absolute Basophil Count 0.05 10^3/uL (0.0-0.2); Absolute Eosinophil Count 0.14 10^3/uL (0.0-0.7); Absolute Lymphocyte Count 2.22 10^3/uL (1.2-3.4); Absolute Monocyte Count 0.66 10^3/uL (0.1-0.8); Basophils % 0.6; Eosinophils % 1.8; HGB 15.1 g/dL (11.2-15.7); Immature Grans % 0.5; Lymphocytes % 28.8; MCH 29.2 pg (27.0-33.0); MCHC 33.6 % (32.0-36.0); MPV 8.5 fL (8.0-11.0); Monocytes % 8.6; Neutrophils % 59.7; Nucleated RBC 0 %; Platelet Count 233 10^3/uL (130-400); RBC 5.17 10^6/uL (3.93-5.22); RDW 12.4 % (11.7-14.6); RDW-SD 39.6 fL; WBC 7.71 10^3/uL (4.4-10.8)
[2021-03-23 15:27] LABS: ALT 41 U/L (14-59); AST 22 U/L (15-37); Albumin 3.4 g/dL (3.4-5.0); Alkaline Phosphatase 82 U/L (46-116); Anion Gap 9.3 mmol/L (3-11); BUN 24 mg/dL (7-18); Bilirubin, Total 0.4 mg/dL (0.2-1.0); CO2 26.7 mmol/L (21.0-32.0); CREATININE 0.8 mg/dL (0.55-1.02); Calcium 8.7 mg/dL (8.5-10.1); Chloride 102 mmol/L (98-107); Glucose 108 mg/dL (74-106); Potassium 4.3 mmol/L (3.5-5.1); Sodium 138 mmol/L (136-145); Total Protein 7.3 g/dL (6.4-8.2)
[2021-03-24 18:13] LABS: Cancer Ag 15-3 13 U/mL (<30)
== END 2021-03-23 02:57 | disposition home or self-care (01) ==
PROVIDERS: PCP Nurse Practitioner; Visit Provider Internal Medicine
DX: C50.911 Malignant neoplasm of unspecified site of right female breast (principal); C79.51 Secondary malignant neoplasm of bone
CPT/HCPCS: 36415; 80053; 86304; 85025; 86300

== ENCOUNTER → 2021-05-27 14:39 | Outpatient (BNVA) | payer MEDICARE, SELFPAY | PROVIDERS: PCP Nurse Practitioner; Referring Provider Nurse Practitioner; Visit Provider Nurse Practitioner Gerontology | DX: N39.41 Urge incontinence (principal); R31.29 Other microscopic hematuria | CPT/HCPCS: 99214 ==

== ENCOUNTER 2021-05-28 16:38 | Outpatient (REF) | payer MEDICARE, SELFPAY ==
[2021-05-28 17:40] LABS: Bilirubin Negative (Negative); Blood Negative (Negative); Clarity Cloudy (Clear); Glucose Negative (Negative); Ketones Negative (Negative); Leukocyte Esterase Trace (Negative); Nitrite Negative (Negative); Specific Gravity >= 1.030 (1.005-1.025); Urobilinogen 0.2 EU/dL (Up TO 0.2); pH 5.5 (5-8)
[2021-05-28 17:49] LABS: Bacteria Moderate HPF (Negative); C & S Indicated? C&S Done As Ordered; Casts Negative LPF (Negative); Crystals Moderate Amorphous HPF (Negative); Epithelial Cells Few HPF (Negative); Mucus Negative (Negative); RBC 0-2 HPF (0-2)
== END 2021-05-28 16:39 | disposition home or self-care (01) ==
LOC: NCHCN 16:38
PROVIDERS: PCP Nurse Practitioner; Visit Provider Nurse Practitioner Gerontology
DX: R31.29 Other microscopic hematuria (principal); R32 Unspecified urinary incontinence
CPT/HCPCS: 87077; 81003; 81015; 87086; 87186

== ENCOUNTER 2021-10-20 02:35 | Outpatient (CLI) | payer MEDICARE, SELFPAY ==
[2021-10-20 13:31] LABS: Abs Immature Grans 0.03 10^3/uL (0.0-0.06); Absolute Basophil Count 0.04 10^3/uL (0.0-0.2); Absolute Eosinophil Count 0.18 10^3/uL (0.0-0.7); Absolute Lymphocyte Count 1.87 10^3/uL (1.2-3.4); Absolute Monocyte Count 0.55 10^3/uL (0.1-0.8); Absolute Neutrophil Count 3.52 10^3/uL (1.2-6.7); Basophils % 0.6; Eosinophils % 2.9; HCT 48.1 % (36.0-46.0); HGB 15.7 g/dL (11.2-15.7); Immature Grans % 0.5; Lymphocytes % 30.2; MCH 28.7 pg (27.0-33.0); MCHC 32.6 % (32.0-36.0); MCV 87.9 fL (80-95); MPV 8.1 fL (8.0-11.0); Monocytes % 8.9; Neutrophils % 56.9; Nucleated RBC 0 %; Platelet Count 229 10^3/uL (130-400); RBC 5.47 10^6/uL (3.93-5.22); RDW 12.3 % (11.7-14.6); RDW-SD 39.8 fL; WBC 6.19 10^3/uL (4.4-10.8)
[2021-10-20 13:44] LABS: ALT 40 U/L (14-59); AST 29 U/L (15-37); Albumin 3.6 g/dL (3.4-5.0); Alkaline Phosphatase 71 U/L (46-116); Anion Gap 9.8 mmol/L (3-11); BUN 17 mg/dL (7-18); Bilirubin, Total 0.7 mg/dL (0.2-1.0); CO2 25.2 mmol/L (21.0-32.0); CREATININE 0.8 mg/dL (0.55-1.02); Calcium 8.7 mg/dL (8.5-10.1); Chloride 102 mmol/L (98-107); Glucose 95 mg/dL (74-106); Potassium 3.9 mmol/L (3.5-5.1); Sodium 137 mmol/L (136-145); Total Protein 7.4 g/dL (6.4-8.2)
[2021-10-21 10:38] LABS: Cancer Ag 15-3 13 U/mL (<30)
== END 2021-10-20 02:36 | disposition home or self-care (01) ==
LOC: LBO 02:35
PROVIDERS: PCP Nurse Practitioner; Visit Provider Internal Medicine
DX: Z79.811 Long term (current) use of aromatase inhibitors (principal); C50.911 Malignant neoplasm of unspecified site of right female breast; C79.51 Secondary malignant neoplasm of bone
CPT/HCPCS: 36415; 80053; 86304; 85025; 86300

== ENCOUNTER 2022-05-10 12:37 | Outpatient (CLI) | payer MEDICARE, SELFPAY ==
[2022-05-10 12:51] LABS: Abs Immature Grans 0.02 10^3/uL (0.0-0.06); Absolute Basophil Count 0.04 10^3/uL (0.0-0.2); Absolute Eosinophil Count 0.14 10^3/uL (0.0-0.7); Absolute Lymphocyte Count 1.46 10^3/uL (1.2-3.4); Absolute Monocyte Count 0.53 10^3/uL (0.1-0.8); Absolute Neutrophil Count 3.09 10^3/uL (1.2-6.7); Basophils % 0.8; Eosinophils % 2.7; HCT 44.5 % (36.0-46.0); HGB 14.7 g/dL (11.2-15.7); Immature Grans % 0.4; Lymphocytes % 27.7; MCH 29.5 pg (27.0-33.0); MCV 89 fL (80-95); MPV 8.3 fL (8.0-11.0); Neutrophils % 58.4; Platelet Count 213 10^3/uL (130-400); RBC 4.98 10^6/uL (3.93-5.22); RDW 12.1 % (11.7-14.6); RDW-SD 39.3 fL; WBC 5.28 10^3/uL (4.4-10.8)
[2022-05-10 13:11] LABS: ALT 49 U/L (14-59); AST 25 U/L (15-37); Albumin 3.3 g/dL (3.4-5.0); Alkaline Phosphatase 61 U/L (46-116); BUN 17 mg/dL (7-18); Bilirubin, Total 0.5 mg/dL (0.2-1.0); CREATININE 0.7 mg/dL (0.55-1.02); Calcium 8.8 mg/dL (8.5-10.1); Chloride 105 mmol/L (98-107); Glucose 85 mg/dL (74-106); Potassium 4.3 mmol/L (3.5-5.1); Sodium 139 mmol/L (136-145); Total Protein 6.7 g/dL (6.4-8.2)
[2022-05-11 11:19] LABS: Cancer Ag 15-3 12 U/mL (<30)
== END 2022-05-10 12:38 | disposition home or self-care (01) ==
LOC: LBO 12:37
PROVIDERS: PCP Nurse Practitioner; Visit Provider Internal Medicine
DX: C50.919 Malignant neoplasm of unspecified site of unspecified female breast (principal); C79.9 Secondary malignant neoplasm of unspecified site
CPT/HCPCS: 36415; 80053; 86304; 85025; 86300

== ENCOUNTER 2022-05-24 17:15 | Emergency (ER) | payer MEDICARE, SELFPAY ==
[2022-05-24 17:22] VITALS: BP 98/78; PULSE 92; RESP 16; TEMP 36.9; O2SAT 95
--- NOTE | 2022-05-24 17:58 | ED.GENADUL_ITS ---
Discharge Plan Disposition Patient Disposition: HOME Condition: Stable Discharge Details Clinical Impression: Viral URI with cough, Sneezing Primary Care Provider: Holley Edwards ED Provider: Temitope Mann Home Meds and New Rx's Prescriptions: Continued aspirin [Adult Low Dose Aspirin] 81 mg tablet,delayed release (DR/EC) 81 mg PO DAILY acetaminophen [Tylenol] 325 MG tablet 325 mg PO DAILY biotin 5 MG capsule 5 mg PO DAILY calcium carbonate [Tums] 200 MG tablet,chewable 200 mg PO DAILY Rx Instructions: take 2 in am, take 2 in pm letrozole 2.5 MG tablet 2.5 mg PO DAILY multivitamin 1 EACH capsule 1 ea PO DAILY citalopram [Celexa] 10 MG tablet 20 mg PO HS Lactobacillus reuteri 100 million cell Tablet,Chewable PO DAILY AM ghiwhck-frmchtwms-upsl 333-133-5 mg Tablet 1 tab PO DAILY Discharge Instructions Instructions: Upper Respiratory Infection (ED), Acute Cough (ED) Additional Instructions: Your symptoms may be due to an upper respiratory infection which is usually viral or seasonal allergies. Your symptoms could also be due to COVID-19 which is also a viral illness. Drink plenty of fluids and get plenty of rest. You can try qlij-cna-vyupyik cough and cold medication for your symptoms as needed and directed. Please quarantine until your COVID test result is available and if confirmed to be negative. Follow-up with your primary care doctor in 1 week. Return to the emergency department with any worsening or new concerning symptoms. Discharge Data Discharge Date/Time-TO BE ENTERED AT DEPARTURE: 05/24/22 18:30 Discharge Physician: Temitope Mann Medical Decision Making 57yo F w/ a c/o breast cancer in remission with brain and lung metastasis presents for nasal congestion, sore throat, sneezing and cough for the past 7 days. She states he is mainly here for a COVID test as she states her son would like her tested. He is 17 years old and also a patient with similar symptoms requesting a COVID test. Patient appears comfortable and nontoxic. Normal ENT exam. No drooling, trismus or lymphadenopathy. Lungs clear bilaterally. No meningeal signs. As she has had symptoms for 7 days, she is outside the window for paxlovid if she is COVID-positive. Patient was informed of this and is understanding and agreeable. We will obtain a send out COVID test. Patient states she does not want any other medication, lab work or imaging. She is advised to follow-up with her PCP for reevaluation as needed. She is advised to increase fluids, rest and ycsu-mco-eatxiei cough and cold medication as needed and directed. Usual and customary return precautions given prior to discharge. Medical Records Medical records reviewed: Yes I reviewed the patient's medical records. HPI General Mode of arrival: ambulatory . Date/Time Provider Initiated Documentation: 05/24/22 17:16 . Limitations to Documentation: no limitations . Information obtained by: patient . HPI Narrative: Patient is a 57-year-old female with a history of remote breast cancer in remission with lung and brain metastasis presents for nasal congestion, sore throat, sneezing for the past 7 days. She states she has received a total of 4 doses of the COVID-vaccine and denies any known exposure to coronavirus but states he and her son who is also patient has some questions or concerns about possible COVID. She states she is here only for a COVID test. She denies any known fever, difficulty breathing, chest pain, vomiting, diarrhea. She states she has tried dkgh-ght-cstxuyi cough and cold medication. Related Data Home Medications Medication Instructions Recorded Confirmed citalopram 10 mg tablet (Celexa) 20 mg PO HS 03/24/13 05/27/21 Tums 200 mg calcium (500 mg) 200 mg PO DAILY 11/20/17 05/24/22 chewable tablet (calcium carbonate) Tylenol 325 mg tablet 325 mg PO DAILY 11/20/17 05/24/22 (acetaminophen) biotin 5 mg capsule 5 mg PO DAILY 11/20/17 05/24/22 letrozole 2.5 mg tablet 2.5 mg PO DAILY 11/20/17 05/24/22 multivitamin 1 ea PO DAILY 11/20/17 05/24/22 aspirin 81 mg tablet,delayed 81 mg PO DAILY 12/09/20 05/24/22 release (Adult Low Dose Aspirin) Lactobacillus reuteri 100 million cell PO DAILY AM 12/17/20 05/27/21 cell chewable tablet [id number]-iwafocpgc-cjbw 333 mg-133 1 tab PO DAILY 12/17/20 05/24/22 mg-5 mg tablet Allergies Allergy/AdvReac Type Severity Reaction Status Date / Time aprepitant [From Emend] AdvReac Intermediate flushing Unverified 05/24/22 17:26 and cramping General Stated Complaint: RespSymp DAREN: 4 Review of Systems All systems reviewed & are unremarkable except as noted in HPI and below Constitutional Constitutional: Reports as per HPI, Denies chills and Denies fever(s) Eyes Eyes: Denies blurry vision ENT Ears, Nose, Mouth, and Throat: Denies dizziness, Reports nasal congestion, Reports sore throat, Denies throat swelling and Reports other (sneezing) Cardiovascular Cardiovascular: Denies chest pain and Denies dyspnea Respiratory Respiratory: Reports cough and Denies dyspnea Gastrointestinal Gastrointestinal: Denies abdominal pain, Denies diarrhea and Denies vomiting Genitourinary Genitourinary: Denies hematuria and Denies dysuria Musculoskeletal Musculoskeletal: Denies back pain and Denies numbness Integumentary/Breasts Skin/Breast: Denies lesions and Denies rash Neurologic Neurologic: Denies dizziness, Denies localized weakness and Denies numbness Allergic/Immunologic Allergic/Immunologic: Denies throat swelling PFSH All Active Problems (Updated 05/24/22 @ 18:16 by Temitope Mann DO) Viral URI with cough (Acute) Sneezing (Acute) Microscopic hematuria (Acute) Medical History (Updated 05/24/22 @ 18:16 by Temitope Mann DO) Anxiety with depression Balance problem Degenerative joint disease Elevated blood sugar HLD (hyperlipidemia) Left foot infection Liver nodule Lung mass 714X [place] inhalation medication. States she had several lung tumors treated with medication and when she blew her nose they all came out. Also had radiation and chemotherapy. Metastatic breast cancer Pneumonia Risk for falls Seizure pt. states this was 2011, she had three tumors in her brain, only had the one seizure. States hasn't required any follow-up Subclinical hyperthyroidism Urinary frequency UTI (urinary tract infection) Surgical History (Updated 12/17/20 @ 07:19 by Darshan Sam) History of brain tumor 3 brain tumors removed 2011. History of lumpectomy of right breast 2006 Social History Smoking/Tobacco Use Status: Current every day Tobacco Type: e-cigarettes Smoking risk assessment performed?: Yes Alcohol Intake: never Drug use: Occasionally Substance use type: marijuana Current gender identity: female Do you feel safe at home: Yes Do you feel safe in your relationship?: Yes Exam Const General: cooperative, healthy appearing and no acute distress Orientation: alert, awake and oriented x3 HENMT Head: normal to inspection Ears: hearing grossly normal bilaterally, external ears normal and TM's normal bilaterally General nose exam: external nose normal Face and sinus: no sinus tenderness Mouth: oral mucosae normal Throat: posterior oropharynx normal Eyes General: appearance normal, both eyes and all related structures Neck Neck: normal visual inspection Resp Effort & Inspection: normal respiratory effort and able to speak in complete sentences Auscultation: clear to auscultation bilaterally Cardio Rate: regular rate Rhythm: regular rhythm Skin General skin exam: no rashes or lesions noted Neuro General: patient alert, patient awake and patient oriented x3 Motor: muscle tone normal throughout Extrem General: normal to inspection and full ROM Psych Appearance: grossly normal Affect: normal affect Course Vital Signs Vital signs: Vital Signs Temperature 98.4 F 05/24/22 17:22 Pulse 92 H 05/24/22 17:22 Respiratory Rate 16 05/24/22 17:22 Blood Pressure 98/78 L 05/24/22 17:22 Pulse Oximetry 95 05/24/22 17:22 Temperature 98.4 F 05/24/22 17:22 Temperature Source Temporal Artery Scan 05/24/22 17:22 Pulse 92 H 05/24/22 17:22 Respiratory Rate 16 05/24/22 17:22 Respiratory Effort Non-Labored 05/24/22 17:28 Blood Pressure 98/78 L 05/24/22 17:22 Blood Pressure Position Sitting 05/24/22 17:22 Pulse Oximetry 95 05/24/22 17:22 Oxygen Delivery Method Room Air 05/24/22 17:22 Oxygen Flow Rate 0 05/24/22 17:22 Pain Level 0 05/24/22 17:22
[2022-05-26 11:06] LABS: COVID-19 RT-PCR UVMMC Result Negative (Negative)
--- NOTE | 2022-05-31 12:06 | NUR.NOTE ---
Covid results returned, unable to contact due to phone stating not in service. Results mailed.Nursing Note:
== END 2022-05-24 18:30 | disposition home or self-care (01) ==
LOC: ER 18:20
PROVIDERS: Emergency Provider Physician Assistant; PCP Nurse Practitioner
DX: J06.9 Acute upper respiratory infection, unspecified (principal); R05.1 Acute cough; R06.7 Sneezing; Z20.822 Contact with and (suspected) exposure to COVID-19
CPT/HCPCS: 99282; U0003; U0005

== ENCOUNTER 2022-09-26 01:30 | Emergency (ER) | payer MEDICARE, SELFPAY ==
[2022-09-26] VITALS (65 sets, daily range): BP systolic 97–119; BP diastolic 51–74; PULSE 85–111; RESP 13–27; TEMP 37; O2SAT 96
--- NOTE | 2022-09-26 01:15 | DI.CT_ITS ---
Exam(s) CT CHEST W EXAM: CT CHEST W CLINICAL HISTORY: cough, hx of cancer, r/o mass / pneumonia TECHNIQUE: Imaging Protocol: Axial computed tomography images with coronal and sagittal reformatted images were created and reviewed CONTRAST MATERIAL: Intravenous: Omnipaque 350 Contrast volume:structured data ml. COMPARISON: CT CT chest w from 07/27/[address] CHEST ABDOMEN PELVIS W CONTRAST (GENERIC) from 12/02/2019 FINDINGS: Tracheobronchial tree: No bronchiectasis or mucous plugging. Mediastinum and Lisa: No dominant adenopathy or fluid collection. Pulmonary parenchyma: 8 x 5 millimeter nodule posterior right upper lobe adjacent to in the area of c ystic change. This appears more prominent when compared with the prior exam. Previously noted right lower lobe nodule not seen on current exam. No consolidation. Scarring lingula and right upper lobe . Pleura: No effusion or pneumothorax. Heart: The heart is not dilated. No coronary artery calcifications are seen. Aorta: Thoracic aorta non-dilated. Upper abdomen: Liver shows marked fatty infiltration. Low-density lesions previously noted are roug hly stable and previously the thought to rectum present cysts. This exam is not sufficient to exclud e metastatic disease. Right renal cyst. Lymph nodes: Within normal limits. Bones: Bilateral old rib fractures. Degenerative changes. Soft tissues: Stable thyroid nodules. Prior right breast surgery. Surgical clips right axilla. IMPRESSION: No evidence of pneumonia. 7 x 5 millimeter left upper lobe nodule increasing in prominence from the previous exam. Follow-up r ecommended in 6 months. RADIATION DOSE DELIVERED: 603.13mGy.cm Total DLP DATA REPOSITORY: All CT scans at this facility are submitted to the National Radiology Data Registry (NRDR) Dose Index Registry (DIR) with the [employer] ([employer]). RADIATION OPTIMIZATION: All CT scans at this facility use at least one of these dose optimization te chniques: automated exposure control; mA and/or kV adjustment per patient size (includes targeted exa ms where dose is matched to clinical indication); or iterative reconstruction.
--- NOTE | 2022-09-26 01:15 | DI.CT_ITS ---
Exam(s) CT HEAD WO EXAM: CT HEAD WO CLINICAL HISTORY: hx of cancer, r/o mass. TECHNIQUE: Imaging Protocol: Axial computed tomography images with coronal and sagittal reformatted images were created and reviewed COMPARISON: CT HEAD WITHOUT CONTRAST from 03/24/2013 FINDINGS: Ventricles and Extra axial spaces: Normal in size and morphology for the patient's age. Hemorrhage: None. Cerebral parenchyma: Stable areas of encephalomalacia in the left frontal and right parietal and occi pital regions. Lacunar infarct left basal ganglia. No acute hemorrhage,, mass or acute infarct. Midline shift: None. Brainstem/Cerebellum: Normal. Calvarium: Right parietal and left frontal craniotomy defects. Visualized Paranasal sinuses/Mastoids: Mild mucous retention floor right maxillary sinus. Soft Tissues: Unremarkable. IMPRESSION: No acute intracranial process. RADIATION DOSE DELIVERED: 695.95mGy.cm Total DLP DATA REPOSITORY: All CT scans at this facility are submitted to the National Radiology Data Registry (NRDR) Dose Index Registry (DIR) with the [employer] ([employer]). RADIATION OPTIMIZATION: All CT scans at this facility use at least one of these dose optimization te chniques: automated exposure control; mA and/or kV adjustment per patient size (includes targeted exa ms where dose is matched to clinical indication); or iterative reconstruction.
--- NOTE | 2022-09-26 01:30 | ED.GENADUL_ITS ---
Discharge Plan Disposition Patient Disposition: Home Condition: Good Discharge Details Chief Complaint: Fall/Non TraumaCriteria Clinical Impression: Fall, Incidental pulmonary nodule Primary Care Provider: Holley Edwards ED Provider: Oli Silva Home Meds and New Rx's Prescriptions: No Action aspirin [Adult Low Dose Aspirin] 81 mg tablet,delayed release (DR/EC) 81 mg PO DAILY acetaminophen [Tylenol] 325 MG tablet 325 mg PO DAILY biotin 5 MG capsule 5 mg PO DAILY calcium carbonate [Tums] 200 MG tablet,chewable 200 mg PO DAILY Rx Instructions: take 2 in am, take 2 in pm letrozole 2.5 MG tablet 2.5 mg PO DAILY multivitamin 1 EACH capsule 1 ea PO DAILY citalopram [Celexa] 10 MG tablet 20 mg PO HS Lactobacillus reuteri 100 million cell Tablet,Chewable PO DAILY AM [id number]-[id number] 333-133-5 mg Tablet 1 tab PO DAILY Discharge Instructions Instructions: Fall Prevention (ED) Additional Instructions: Please stay well-hydrated at home. Please get a bed that is appropriate in size that you feel would be safest to prevent any rollouts in the future. Please follow-up closely with your primary care provider for reassessment of your pulmonary nodule and repeat imaging in the next few months. If you notice any worsening of your symptoms, or any new symptoms such as vomiting, diarrhea, fever, chills, shortness of breath, chest pain, numbness, weakness, or fainting , please return immediately to the emergency department for reevaluation. Please follow up with your primary care provider as soon as possible for reassessment and reevaluation. As always, it was a pleasure participating in your medical care today. Referrals: Holley Edwards [Primary Care Provider] - Medical Decision Making This is a 57-year-old female with a past medical history of breast cancer with metastasis to the bone and brain, who has been in remission since 2012, previous craniotomy, with additional past medical history of high cholesterol, seizure, hypothyroidism, who presents today for evaluation for weakness. Patient states that over the last day or so she has been mildly weak. A lift assist has been called to her home twice in the last 24 hours. This evening she slipped on the bathroom floor and lowered herself down. She did not injure self hit her head or get hurt, but she was unable to get herself up sec ondary to weakness. Her 17-year-old son Yuriy did call 911 and she was transported to the emergency department for further evaluation. She does admit to mild cough over the last few days, but denies any chest pain or shortness of breath. She denies any buttock or back pain. She denies any head or neck pain. No other complaints at this time. No other modifying factors. Exam demonstrates well-appearing female, no signs of trauma on her back neck buttock or head. No tenderness, no limitation in movement. She does appear mildly globally weak, but no focal deficits. Will evaluate for potential pneumonia with her cough, UTI for her weakness, electrolyte abnormality or dehydration. We will get a CT scan of the head, monitor closely and reassess. 4:25 AM On laboratory work-up no significant abnormalities are noted, patient continues to feel well. CT scan of the head chest demonstrates no significant abnormalities. There is evidence of a pulmonary nodule, slightly larger than ex pected. Recommend follow-up with this on an outpatient nonemergent basis for repeat imaging and 6 months. Discussed this with the patient and she understands. Patient does have minimal leuk esterase and 3-5 WBCs but no nitrites. There are epithelial cells noted. She denies any frequency or dysuria. Symptoms inconsistent with urinary tract infection. Patient feels well and is requesting to go home. Patient stable for discharge. Patient states that she does not need or want any additional help or support at home at this time. She feels that her biggest issue is that her bed is too small and so she keeps rolling off of it. She states that she otherwise feels stable when she walks and ambulates including here. Patient will be discharged. Discussed red flags for which to return. I have extensively reviewed the treatment plan and discharge instructions with the patient. I have addressed all patient concerns at this time. The patient was made aware of what symptoms to monitor fo r that would warrant a return to the emergency department. Discussed the plan with the patient, they demonstrate verbal understanding and agreement with our assessment and plan at this time. The documentation in this chart was dictated using [employer] dictation software. Please excuse any dictation errors. FINDINGS: Brain: Foci of encephalomalacia are again noted in the high left frontal lobe and in the right parietooccipital region. There is no intracranial hemorrhage, mass effect, midline shift, or extra-axial collection. There is no evidence of acute territorial infarct. A small chronic-appearing lacunar infarct is noted in the genu of the left internal capsule. Patchy periventricular white matter hypoattenuation is nonspecific though most likely the sequela of mild chronic microangiopathy. Sulci are normal in size for patient's age. Cerebral ventricles: Normal in size for patient's age. Paranasal sinuses: Subtotal opacification of the right sphenoid sinus. Mild polypoid mucosal thickening in the right maxillary sinus. Trace mucosal thickening in the left maxillary and sphenoid sinuses and in the bilateral ethmoid air cells. Mastoid air cells: The mastoid air cells are clear bilaterally. Bones/joints: High left frontal and right parietooccipital craniotomy defects are noted. No suspicious osseous lesions. Soft tissues: Extracranial soft tissues are unremarkable IMPRESSION: 1. No acute intracranial abnormality. No intracranial hemorrhage or mass effect. If there is persistent high clinical concern for intracranial metastatic disease, consider further evaluation with brain MRI. 2. Stable chronic changes are discussed in the body of the report. 3. Paranasal sinus mucosal disease. Thank you for allowing us to participate in the care of your patient. Dictated and Authenticated by: Ximena Gonzalez MD 09/26/2022 4:06 AM Eastern Time ([place] & [place]) FINDINGS: Thyroid: There are numerous thyroid nodules, up to 1.9 cm. Lungs: There is linear scarring in the right upper lobe, and scarring in the lingula with traction bronchiectasis. A 7 mm nodule in the left upper lobe, series 2, image 23, has increased in size when compared to 12/02/2019. Pleural spaces: Unremarkable. No pneumothorax. No pleural effusion. Heart: Unremarkable. No cardiomegaly. No pericardial effusion. Lymph nodes: Unremarkable. No enlarged lymph nodes. Vasculature: Unremarkable. No aortic aneurysm. Liver: Diffuse hypodensity of the liver represents diffuse fatty infiltration. Multiple hepatic cysts are stable. 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 No acute fracture. Soft tissues: Surgical clips in the right anterior chest wall. IMPRESSION: 1. Left upper lobe nodule increased in size when compared to 12/02/2019. For patients at low risk (minimal or absent history of smoking and of other known risk factors), recommend CT Chest at 6-12 months, then consider CT Chest at 18-24 months. For patients at high risk (history of smoking or of other known risk factors), recommend CT Chest at 6-12 months, then CT Chest at 18-24 months. (Reference: Sedrick) 2. Numerous thyroid nodules. Further evaluation with non-emergent thyroid ultrasound is recommended. 3. Hepatic steatosis. 4. Multiple hepatic cysts are stable. REFERENCES: [facility]rick Gabriel, et al. Guidelines for Management of Incidental Pulmonary Nodules Detected on CT Images: From the Fleischner Society 2017. Radiology. 2017;284(1):228-243. Thank you for allowing us to participate in the care of your patient. Dictated and Authenticated by: Chad Sylvester MD 09/26/2022 3:36 AM Eastern Time ([place] & [place]) Sign Out No HPI General Date/Time Provider Initiated Documentation: 09/26/22 03:27 . HPI Narrative: This is a 57-year-old female with a past medical history of breast cancer with metastasis to the bone and brain, who has been in remission since 2011, previous craniotomy, with additional past medical history of high cholesterol, seizure, hypothyroidism, who presents today for evaluation for weakness. Patient states that over the last day or so she has been mildly weak. A lift assist has been called to her home twice in the last 24 hours. This evening she slipped on the bathroom floor and lowered herself down. She did not injure self hit her head or get hurt, but she was unable to get herself up secondary to weakness. Her 17-year-old son Yuriy did call 911 and she was transported to the emergency department for further evaluation. She does admit to mild cough over the last few days, but denies any chest pain or shortness of breath. She denies any buttock or back pain. She denies any head or neck pain. No other complaints at this time. No other modifying factors. Related Data Home Medications Medication Instructions Recorded Confirmed citalopram 10 mg tablet (Celexa) 20 mg PO HS 03/24/13 05/27/21 Tums 200 mg calcium (500 mg) 200 mg PO DAILY 11/20/17 05/24/22 chewable tablet (calcium carbonate) Tylenol 325 mg tablet 325 mg PO DAILY 11/20/17 05/24/22 (acetaminophen) biotin 5 mg capsule 5 mg PO DAILY 11/20/17 05/24/22 letrozole 2.5 mg tablet 2.5 mg PO DAILY 11/20/17 05/24/22 multivitamin 1 ea PO DAILY 11/20/17 05/24/22 aspirin 81 mg tablet,delayed 81 mg PO DAILY 12/09/20 05/24/22 release (Adult Low Dose Aspirin) Lactobacillus reuteri 100 million cell PO DAILY AM 12/17/20 05/27/21 cell chewable tablet ennnvom-mgsakgwpj-[id number] 333 mg-133 1 tab PO DAILY 12/17/20 05/24/22 mg-5 mg tablet Allergies Allergy/AdvReac Type Severity Reaction Status Date / Time aprepitant [From Emend] AdvReac Intermediate flushing Unverified 05/24/22 17:26 and cramping General Stated Complaint: Fall/Non TraumaCriteria DAREN: 3 Review of Systems All systems reviewed & are unremarkable except as noted in HPI and below PFSH All Active Problems (Updated 09/26/22 @ 04:28 by Oli Silva DO) Fall (Acute) Incidental pulmonary nodule (Acute) Microscopic hematuria (Acute) Medical History Anxiety with depression Balance problem Degenerative joint disease Elevated blood sugar HLD (hyperlipidemia) Left foot infection Liver nodule Lung mass 714X Rhea inhalation medication. States she had several lung tumors treated with medication and when she blew her nose they all came out. Also had radiation and chemotherapy. Metastatic breast cancer Pneumonia Risk for falls Seizure pt. states this was 2011, she had three tumors in her brain, only had the one seizure. States hasn't required any follow-up Subclinical hyperthyroidism Urinary frequency UTI (urinary tract infection) Surgical History History of brain tumor 3 brain tumors removed 2011. History of lumpectomy of right breast 2006 Social History Smoking/Tobacco Use Status: Current every day Tobacco Type: e-cigarettes Smoking risk assessment performed?: Yes Alcohol Intake: never Drug use: Occasionally Substance use type: marijuana Current gender identity: female Do you feel safe at home: Yes Do you feel safe in your relationship?: Yes Exam Narrative Exam Narrative: 1.Const: Well-nourished, Well-developed, appearing stated age 2.Eyes: PERRL, no conjunctival injection, and symmetrical lids. 3.ENT: Atraumatic external nose and ears. Moist MM. Neck: Symmetric, trachea midline, No thyromegaly. 4.CVS: +S1/S2, No murmurs or gallops. Peripheral pulses 2+ and equal in all extremities. Brisk capillary refill in all extremities. 5.RESP: Unlabored respiratory effort. Clear to auscultation bilaterally. No wheezes rales or rhonchi 6.GI: Soft, Nontender/Nondistended, No hepatosplenomegaly. No guarding or rebound. 7.MSK: Normocephalic/Atraumatic, Extremities w/o deformity or ttp No cyanosis or clubbing, Normal movement of all extremities 8.Skin: Warm, Dry. No rashes or lesions. 9.Neuro: family member caretaker II-XII grossly intact. Sensation grossly intact, no focal neurologic deficits. 10.Psych: (AAO) x3. Appropriate mood and affect Course Vital Signs Vital signs: Vital Signs Temperature 37.0 C 09/26/22 01:22 Pulse 109 H 09/26/22 01:22 Respiratory Rate 18 09/26/22 01:22 Blood Pressure 119/74 09/26/22 01:22 Pulse Oximetry 96 09/26/22 01:22 Temperature 37.0 C 09/26/22 01:22 Temperature Source Temporal Artery Scan 09/26/22 01:22 Pulse 109 H 09/26/22 01:22 Respiratory Rate 18 09/26/22 01:22 Blood Pressure 119/74 09/26/22 01:22 Blood Pressure Position Supine 09/26/22 01:22 Pulse Oximetry 96 09/26/22 01:22 Oxygen Delivery Method Room Air 09/26/22 01:22 Oxygen Flow Rate 0 09/26/22 01:22 Pain Level 0 09/26/22 01:22
[2022-09-26 01:40] LABS: Bilirubin Negative (Negative); Blood Negative (Negative); Clarity Clear (Clear); Glucose Negative (Negative); Ketones Negative (Negative); Leukocyte Esterase Small (Negative); Nitrite Negative (Negative); Urobilinogen 0.2 EU/dL (Up TO 0.2)
[2022-09-26 01:42] LABS: Abs Immature Grans 0.06 10^3/uL (0.0-0.06); Absolute Basophil Count 0.04 10^3/uL (0.0-0.2); Absolute Eosinophil Count 0.02 10^3/uL (0.0-0.7); Absolute Lymphocyte Count 0.71 10^3/uL (1.2-3.4); Absolute Monocyte Count 1.21 10^3/uL (0.1-0.8); Absolute Neutrophil Count 7.16 10^3/uL (1.2-6.7); Basophils % 0.4; Eosinophils % 0.2; HCT 45.9 % (36.0-46.0); HGB 15.2 g/dL (11.2-15.7); Immature Grans % 0.7; Lymphocytes % 7.7; MCH 28.8 pg (27.0-33.0); MCHC 33.1 % (32.0-36.0); MCV 87 fL (80-95); MPV 8.1 fL (8.0-11.0); Monocytes % 13.2; Neutrophils % 77.8; Platelet Count 191 10^3/uL (130-400); RBC 5.28 10^6/uL (3.93-5.22); RDW 12.8 % (11.7-14.6); RDW-SD 40.5 fL
[2022-09-26 01:53] LABS: pCO2 (Venous) 32 mmHg (41-51); pH (Venous) 7.43 (7.31-7.41); pO2 (Venous) 36 mmHg
[2022-09-26 01:54] LABS: BE (Venous) -3 mmol/L (-2-3); HCO3 (Venous) 21 mmol/L (23-28); O2 Sat (Venous) 72 %; TCO2 (Venous) 22 mmol/l (24-29)
[2022-09-26 01:55] LABS: Epithelial Cells Few HPF (Negative); RBC 0-2 HPF (0-2)
[2022-09-26 01:56] LABS: Bacteria Rare HPF (Negative); C & S Indicated? No; Crystals Moderate Amorphous HPF (Negative); Mucus Negative (Negative)
[2022-09-26 02:17] LABS: ALT 49 U/L (14-59); AST 30 U/L (15-37); Albumin 3.4 g/dL (3.4-5.0); Alkaline Phosphatase 72 U/L (46-116); Anion Gap 10.8 mmol/L (3-11); BUN 19 mg/dL (7-18); Bilirubin, Total 0.5 mg/dL (0.2-1.0); CO2 23.2 mmol/L (21.0-32.0); CREATININE 0.9 mg/dL (0.55-1.02); Calcium 8.4 mg/dL (8.5-10.1); Chloride 102 mmol/L (98-107); Estimated GFR 75.03 (mL/min/1.73m2); Glucose 105 mg/dL (74-106); Potassium 3.7 mmol/L (3.5-5.1); Sodium 136 mmol/L (136-145); TSH (W/Ref FT4) 0.24 uIU/mL (0.36-3.74); Total Protein 7.4 g/dL (6.4-8.2)
[2022-09-26 02:18] LABS: ETHANOL BLOOD < 3.0 mg/dL (<10)
[2022-09-26 02:46] LABS: FREE T4 1.19 ng/dL (0.76-1.46)
[2022-09-26] MEDS: Omnipaque 350 MG/ML 100 ML BTL IJ (02:47)
[2022-09-26] MEDS: Normal Saline - Diluent 50 ML VIAL IJ (02:48)
[2022-09-26] MEDS: Normal Saline Flush 10 ML SYR IVP (02:48)
--- NOTE | 2022-09-26 03:36 | DI.VRAD_ITS ---
PROCEDURE INFORMATION: Exam: CT Chest With Contrast; Diagnostic Exam date and time: 09/26/2022 3:01 AM Age: 57 years old Clinical indication: Prior surgery; Surgery date: 6+ months; Surgery type: Lumpectomy of right breast; Patient HX: Cough, HX of cancer, R/O mass/ pneumonia TECHNIQUE: Imaging protocol: Diagnostic computed tomography of the chest with contrast. 3D rendering (Not supervised by radiologist): MIP and/or 3D reconstructed images were created by the technologist. Radiation optimization: All CT scans at this facility use at least one of these dose optimization techniques: automated exposure control; mA and/or kV adjustment per patient size (includes targeted exams where dose is matched to clinical indication); or iterative reconstruction. Contrast material: OMNIPAQUE 350; Contrast volume: 70 ml; Contrast route: INTRAVENOUS (IV); COMPARISON: CT CHEST ABDOMEN PELVIS W CONTRAST (GENERIC) 12/02/2019 2:44 PM FINDINGS: Thyroid: There are numerous thyroid nodules, up to 1.9 cm. Lungs: There is linear scarring in the right upper lobe, and scarring in the lingula with traction bronchiectasis. A 7 mm nodule in the left upper lobe, series 2, image 23, has increased in size when compared to 12/02/2019. Pleural spaces: Unremarkable. No pneumothorax. No pleural effusion. Heart: Unremarkable. No cardiomegaly. No pericardial effusion. Lymph nodes: Unremarkable. No enlarged lymph nodes. Vasculature: Unremarkable. No aortic aneurysm. Liver: Diffuse hypodensity of the liver represents diffuse fatty infiltration. Multiple hepatic cysts are stable. 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 No acute fracture. Soft tissues: Surgical clips in the right anterior chest wall. IMPRESSION: 1. Left upper lobe nodule increased in size when compared to 12/02/2019. For patients at low risk (minimal or absent history of smoking and of other known risk factors), recommend CT Chest at 6-12 months, then consider CT Chest at 18-24 months. For patients at high risk (history of smoking or of other known risk factors), recommend CT Chest at 6-12 months, then CT Chest at 18-24 months. (Reference: Sedrick) 2. Numerous thyroid nodules. Further evaluation with non-emergent thyroid ultrasound is recommended. 3. Hepatic steatosis. 4. Multiple hepatic cysts are stable. REFERENCES: [facility] Gabriel et al. Guidelines for Management of Incidental Pulmonary Nodules Detected on CT Images: From the Fleischner Society 2017. Radiology. 2017;284(1):228-243. Dictated and Authenticated by: Chad Sylvester MD. Ordering:JAKOB Baird MD
[2022-09-26] MEDS: Acetaminophen 500 MG TAB 1000 MG PO (03:47)
--- NOTE | 2022-09-26 04:07 | DI.VRAD_ITS ---
PROCEDURE INFORMATION: Exam: CT Head Without Contrast Exam date and time: 09/26/2022 2:58 AM Age: 57 years old Clinical indication: Other: Weakness; Prior surgery; Surgery date: 6+ months; Surgery type: Tumors removed 2011; Patient HX: HX of cancer R/O mass TECHNIQUE: Imaging protocol: Computed tomography of the head without contrast. Radiation optimization: All CT scans at this facility use at least one of these dose optimization techniques: automated exposure control; mA and/or kV adjustment per patient size (includes targeted exams where dose is matched to clinical indication); or iterative reconstruction. COMPARISON: MR HEAD^ROUTINE W WO 05/15/2019 10:00 AM FINDINGS: Brain: Foci of encephalomalacia are again noted in the high left frontal lobe and in the right parietooccipital region. There is no intracranial hemorrhage, mass effect, midline shift, or extra-axial collection. There is no evidence of acute territorial infarct. A small chronic-appearing lacunar infarct is noted in the genu of the left internal capsule. Patchy periventricular white matter hypoattenuation is nonspecific though most likely the sequela of mild chronic microangiopathy. Sulci are normal in size for patient's age. Cerebral ventricles: Normal in size for patient's age. Paranasal sinuses: Subtotal opacification of the right sphenoid sinus. Mild polypoid mucosal thickening in the right maxillary sinus. Trace mucosal thickening in the left maxillary and sphenoid sinuses and in the bilateral ethmoid air cells. Mastoid air cells: The mastoid air cells are clear bilaterally. Bones/joints: High left frontal and right parietooccipital craniotomy defects are noted. No suspicious osseous lesions. Soft tissues: Extracranial soft tissues are unremarkable. IMPRESSION: 1. No acute intracranial abnormality. No intracranial hemorrhage or mass effect. If there is persistent high clinical concern for intracranial metastatic disease, consider further evaluation with brain MRI. 2. Stable chronic changes are discussed in the body of the report. 3. Paranasal sinus mucosal disease. Dictated and Authenticated by: Ximena Gonzalez MD. Ordering:JAKOB Baird MD
--- NOTE | 2022-09-26 05:58 | NUR.NOTE ---
Patient arrived in ED via ambulance and has no one to give her a ride home. Called [facility] for transportation home and they need Care Management to approve of the ride. Nursing Note:
== END 2022-09-26 06:56 | disposition home or self-care (01) ==
PROVIDERS: Emergency Provider Student in an Organized Health Care Education/Training Program; PCP Nurse Practitioner
DX: Z04.3 Encounter for examination and observation following other accident (principal); R91.1 Solitary pulmonary nodule; E78.00 Pure hypercholesterolemia, unspecified; Z85.3 Personal history of malignant neoplasm of breast; Z85.830 Personal history of malignant neoplasm of bone; Z85.841 Personal history of malignant neoplasm of brain
CPT/HCPCS: 80053; 82805; 99285; 70450; 71260; 80320; 81003; 81015; 84439; 84443; 85025; 99284; J3490

== ENCOUNTER 2022-11-03 14:06 | Outpatient (REF) | payer MEDICARE, SELFPAY ==
[2022-11-03 15:17] LABS: Bilirubin Negative (Negative); Blood Negative (Negative); Clarity Sl Cloudy (Clear); Glucose Negative (Negative); Ketones Negative (Negative); Leukocyte Esterase Trace (Negative); Nitrite Negative (Negative); Specific Gravity >= 1.030 (1.005-1.025); Urobilinogen 0.2 EU/dL (Up TO 0.2); pH 5.5 (5-8)
[2022-11-03 16:05] LABS: Bacteria Many HPF (Negative); C & S Indicated? Yes; Casts Negative LPF (Negative); Crystals Negative HPF (Negative); Epithelial Cells Few HPF (Negative); Mucus Negative (Negative); RBC 0-2 HPF (0-2)
== END 2022-11-03 14:07 | disposition home or self-care (01) ==
LOC: NCHCN 14:06
PROVIDERS: PCP Nurse Practitioner Family; Visit Provider Nurse Practitioner Family
DX: N39.46 Mixed incontinence (principal); R35.0 Frequency of micturition
CPT/HCPCS: 87077; 81003; 81015; 87086; 87186

== ENCOUNTER 2022-12-30 14:31 | Outpatient (REF) | payer MEDICARE, SELFPAY ==
[2022-12-30 18:47] LABS: ALT 54 U/L (14-59); AST 38 U/L (15-37); Albumin 3.7 g/dL (3.4-5.0); Alkaline Phosphatase 71 U/L (46-116); Anion Gap 11.2 mmol/L (3-11); BUN 23 mg/dL (7-18); Bilirubin, Total 0.5 mg/dL (0.2-1.0); CO2 24.8 mmol/L (21.0-32.0); CREATININE 0.8 mg/dL (0.55-1.02); Chloride 105 mmol/L (98-107); Estimated GFR 86.42 (mL/min/1.73m2); Glucose 99 mg/dL (74-106); Potassium 4.7 mmol/L (3.5-5.1); Sodium 141 mmol/L (136-145); Total Protein 7.8 g/dL (6.4-8.2)
== END 2022-12-30 14:32 | disposition home or self-care (01) ==
LOC: NCHCN 14:31
PROVIDERS: PCP Nurse Practitioner Family; Visit Provider Nurse Practitioner Family
DX: N39.46 Mixed incontinence (principal); E78.5 Hyperlipidemia, unspecified; R73.9 Hyperglycemia, unspecified; Z51.81 Encounter for therapeutic drug level monitoring
CPT/HCPCS: 80053

== ENCOUNTER → 2023-01-18 10:48 | Outpatient (BNVA) | payer MEDICARE, SELFPAY | PROVIDERS: PCP Nurse Practitioner Family; Referring Provider Nurse Practitioner Family; Visit Provider Nurse Practitioner Gerontology | DX: N39.46 Mixed incontinence (principal) | CPT/HCPCS: 51798; 99214 ==

== ENCOUNTER 2023-01-31 14:14 | Outpatient (CLI) | payer MEDICARE, SELFPAY ==
[2023-01-31 12:57] LABS: Abs Immature Grans 0.02 10^3/uL (0.0-0.06); Absolute Basophil Count 0.05 10^3/uL (0.0-0.2); Absolute Eosinophil Count 0.21 10^3/uL (0.0-0.7); Absolute Lymphocyte Count 2.19 10^3/uL (1.2-3.4); Absolute Monocyte Count 0.59 10^3/uL (0.1-0.8); Absolute Neutrophil Count 3.95 10^3/uL (1.2-6.7); Basophils % 0.7; HCT 46.6 % (36.0-46.0); HGB 15.8 g/dL (11.2-15.7); Immature Grans % 0.3; Lymphocytes % 31.2; MCH 29.6 pg (27.0-33.0); MCHC 33.9 % (32.0-36.0); MCV 87 fL (80-95); MPV 8.2 fL (8.0-11.0); Monocytes % 8.4; Neutrophils % 56.4; Platelet Count 224 10^3/uL (130-400); RBC 5.34 10^6/uL (3.93-5.22); RDW 12.6 % (11.7-14.6); RDW-SD 39.8 fL; WBC 7.01 10^3/uL (4.4-10.8)
[2023-01-31 13:12] LABS: ALT 59 U/L (14-59); AST 30 U/L (15-37); Albumin 3.4 g/dL (3.4-5.0); Alkaline Phosphatase 73 U/L (46-116); Anion Gap 6.1 mmol/L (3-11); BUN 17 mg/dL (7-18); Bilirubin, Total 0.5 mg/dL (0.2-1.0); CO2 29.9 mmol/L (21.0-32.0); Calcium 8.7 mg/dL (8.5-10.1); Chloride 103 mmol/L (98-107); Estimated GFR 66.12 (mL/min/1.73m2); Glucose 106 mg/dL (74-106); Potassium 4.2 mmol/L (3.5-5.1); Sodium 139 mmol/L (136-145); Total Protein 7.4 g/dL (6.4-8.2)
== END 2023-01-31 14:15 | disposition home or self-care (01) ==
LOC: LBO 14:14
PROVIDERS: PCP Nurse Practitioner Family; Visit Provider Nurse Practitioner Family
DX: C50.919 Malignant neoplasm of unspecified site of unspecified female breast (principal); C79.51 Secondary malignant neoplasm of bone
CPT/HCPCS: 36415; 80053; 85025

== ENCOUNTER → 2023-06-19 13:28 | Outpatient (BNVA) | payer MEDICARE, SELFPAY | PROVIDERS: PCP Nurse Practitioner Family; Referring Provider Nurse Practitioner Family; Visit Provider Nurse Practitioner Gerontology | DX: N39.46 Mixed incontinence (principal) | CPT/HCPCS: 51798; 99213 ==

== ENCOUNTER 2023-07-05 14:19 | Outpatient (REF) | payer MEDICARE, SELFPAY ==
[2023-07-05 20:14] LABS: Abs Immature Grans 0.03 10^3/uL (0.0-0.06); Absolute Basophil Count 0.05 10^3/uL (0.0-0.2); Absolute Eosinophil Count 0.14 10^3/uL (0.0-0.7); Absolute Lymphocyte Count 2.06 10^3/uL (1.2-3.4); Absolute Monocyte Count 0.64 10^3/uL (0.1-0.8); Absolute Neutrophil Count 3.27 10^3/uL (1.2-6.7); Basophils % 0.8; Eosinophils % 2.3; HCT 48.9 % (36.0-46.0); HGB 16.1 g/dL (11.2-15.7); Immature Grans % 0.5; Lymphocytes % 33.3; MCH 28.9 pg (27.0-33.0); MCHC 32.9 % (32.0-36.0); MCV 88 fL (80-95); MPV 9.1 fL (8.0-11.0); Monocytes % 10.3; Neutrophils % 52.8; Platelet Count 247 10^3/uL (130-400); RBC 5.57 10^6/uL (3.93-5.22); RDW 12.4 % (11.7-14.6); WBC 6.19 10^3/uL (4.4-10.8)
[2023-07-05 20:50] LABS: ALT 84 U/L (14-59); AST 49 U/L (15-37); Albumin 3.4 g/dL (3.4-5.0); Alkaline Phosphatase 68 U/L (46-116); Anion Gap 9.1 mmol/L (3-11); BUN 21 mg/dL (7-18); Bilirubin, Total 0.5 mg/dL (0.2-1.0); CO2 23.9 mmol/L (21.0-32.0); CREATININE 0.8 mg/dL (0.55-1.02); Calculated LDL 165 mg/dL (<100); Chloride 106 mmol/L (98-107); Cholesterol 243 mg/dL (<200); Estimated GFR 85.89 (mL/min/1.73m2); Glucose 91 mg/dL (74-106); HDL Cholesterol 53 mg/dL (40-60); Potassium 4.3 mmol/L (3.5-5.1); Sodium 139 mmol/L (136-145); TSH 0.06 uIU/mL (0.36-3.74); Total Protein 7.3 g/dL (6.4-8.2); Triglyceride 129 mg/dL (<150)
[2023-07-05 21:13] LABS: FREE T4 1.16 ng/dL (0.76-1.46)
== END 2023-07-05 14:20 | disposition home or self-care (01) ==
LOC: NCHCN 14:19
PROVIDERS: PCP Nurse Practitioner Family; Visit Provider Nurse Practitioner Family
DX: E78.5 Hyperlipidemia, unspecified (principal); E04.2 Nontoxic multinodular goiter; R91.8 Other nonspecific abnormal finding of lung field; Z51.81 Encounter for therapeutic drug level monitoring; Z85.3 Personal history of malignant neoplasm of breast
CPT/HCPCS: 80053; 80061; 84439; 84443; 85025

== ENCOUNTER 2023-08-01 02:52 | Outpatient (CLI) | payer MEDICARE, SELFPAY ==
[2023-08-01 12:34] LABS: Abs Immature Grans 0.03 10^3/uL (0.0-0.06); Absolute Basophil Count 0.07 10^3/uL (0.0-0.2); Absolute Monocyte Count 0.59 10^3/uL (0.1-0.8); Absolute Neutrophil Count 3.95 10^3/uL (1.2-6.7); Eosinophils % 1.5; HCT 49.1 % (36.0-46.0); HGB 16.3 g/dL (11.2-15.7); Immature Grans % 0.4; Lymphocytes % 30.7; MCH 28.6 pg (27.0-33.0); MCHC 33.2 % (32.0-36.0); MCV 86 fL (80-95); MPV 8.2 fL (8.0-11.0); Monocytes % 8.6; Neutrophils % 57.8; Platelet Count 227 10^3/uL (130-400); RBC 5.69 10^6/uL (3.93-5.22); RDW 12.3 % (11.7-14.6); RDW-SD 38.6 fL; WBC 6.84 10^3/uL (4.4-10.8)
[2023-08-01 13:22] LABS: ALT 63 U/L (14-59); AST 35 U/L (15-37); Albumin 3.4 g/dL (3.4-5.0); Alkaline Phosphatase 74 U/L (46-116); Anion Gap 12.9 mmol/L (3-11); BUN 20 mg/dL (7-18); Bilirubin, Total 0.6 mg/dL (0.2-1.0); CO2 21.1 mmol/L (21.0-32.0); CREATININE 0.9 mg/dL (0.55-1.02); Calcium 9.4 mg/dL (8.5-10.1); Chloride 105 mmol/L (98-107); Estimated GFR 74.57 (mL/min/1.73m2); Glucose 100 mg/dL (74-106); Sodium 139 mmol/L (136-145); Total Protein 7.3 g/dL (6.4-8.2)
[2023-08-02 17:01] LABS: Cancer Ag 15-3 13 U/mL (<30)
== END 2023-08-01 02:53 | disposition home or self-care (01) ==
LOC: LBO 02:53
PROVIDERS: PCP Nurse Practitioner Family; Visit Provider Internal Medicine
DX: C79.51 Secondary malignant neoplasm of bone (principal); C50.919 Malignant neoplasm of unspecified site of unspecified female breast; Z79.811 Long term (current) use of aromatase inhibitors
CPT/HCPCS: 36415; 80053; 86304; 85025; 86300

== ENCOUNTER → 2023-08-14 12:34 | Outpatient (BNVA) | payer MEDICARE, SELFPAY | PROVIDERS: PCP Nurse Practitioner Family; Referring Provider Nurse Practitioner Family; Visit Provider Nurse Practitioner Gerontology ==

== ENCOUNTER 2023-10-17 14:23 | Outpatient (REF) | payer MEDICARE, SELFPAY ==
[2023-10-17 14:43] LABS: Abs Immature Grans 0.03 10^3/uL (0.0-0.06); Absolute Basophil Count 0.05 10^3/uL (0.0-0.2); Absolute Eosinophil Count 0.08 10^3/uL (0.0-0.7); Absolute Lymphocyte Count 2.04 10^3/uL (1.2-3.4); Absolute Monocyte Count 0.49 10^3/uL (0.1-0.8); Absolute Neutrophil Count 3.54 10^3/uL (1.2-6.7); Basophils % 0.8; Eosinophils % 1.3; HCT 45.4 % (36.0-46.0); HGB 15.1 g/dL (11.2-15.7); Immature Grans % 0.5; Lymphocytes % 32.7; MCH 29.4 pg (27.0-33.0); MCHC 33.3 % (32.0-36.0); MCV 88 fL (80-95); MPV 8.8 fL (8.0-11.0); Monocytes % 7.9; Neutrophils % 56.8; Platelet Count 228 10^3/uL (130-400); RBC 5.14 10^6/uL (3.93-5.22); RDW 12.2 % (11.7-14.6); RDW-SD 40.1 fL; WBC 6.23 10^3/uL (4.4-10.8)
[2023-10-17 15:04] LABS: ALT 44 U/L (14-59); AST 26 U/L (15-37); Albumin 3.3 g/dL (3.4-5.0); Alkaline Phosphatase 66 U/L (46-116); Anion Gap 7.1 mmol/L (3-11); BUN 17 mg/dL (7-18); Bilirubin, Total 0.6 mg/dL (0.2-1.0); CO2 28.9 mmol/L (21.0-32.0); CREATININE 0.8 mg/dL (0.55-1.02); Calcium 9.4 mg/dL (8.5-10.1); Chloride 105 mmol/L (98-107); Estimated GFR 85.89 (mL/min/1.73m2); Glucose 101 mg/dL (74-106); Sodium 141 mmol/L (136-145)
[2023-10-19 12:33] LABS: Cancer Ag 15-3 13 U/mL (<30)
== END 2023-10-17 14:24 | disposition home or self-care (01) ==
LOC: LBN 14:23
PROVIDERS: PCP Nurse Practitioner Family; Visit Provider Internal Medicine
DX: C50.911 Malignant neoplasm of unspecified site of right female breast; C79.51 Secondary malignant neoplasm of bone; Z79.811 Long term (current) use of aromatase inhibitors
CPT/HCPCS: 80053; 86304; 85025; 86300

== ENCOUNTER 2023-11-13 12:42 | Emergency (ER) | payer MEDICARE, SELFPAY ==
[2023-11-13] VITALS (41 sets, daily range): BP systolic 86–155; BP diastolic 49–100; PULSE 61–109; RESP 16–18; TEMP 36.8–37.2; O2SAT 94–100
--- NOTE | 2023-11-13 12:30 | RT.EKG_ITS ---
APPROVED REPORT Exam: Resting ECG Reason for Exam: Syncope Patient Location: E HR:71 bpm ECG Measurements Heart Rate 71 AXIS OR 141 P 40 QRSd 72 QRS -26 QT 438 T 41 QTc 475 Conclusion Sinus rhythm...normal P axis, V-rate 60- 99 Inferior infarct, old...Q >35mS, II III aVF
[2023-11-13 13:19] LABS: Abs Immature Grans 0.04 10^3/uL (0.0-0.06); Absolute Basophil Count 0.06 10^3/uL (0.0-0.2); Absolute Eosinophil Count 0.09 10^3/uL (0.0-0.7); Absolute Lymphocyte Count 1.62 10^3/uL (1.2-3.4); Absolute Monocyte Count 0.47 10^3/uL (0.1-0.8); Absolute Neutrophil Count 4.42 10^3/uL (1.2-6.7); Basophils % 0.9; Eosinophils % 1.3; HCT 46.4 % (36.0-46.0); HGB 15.5 g/dL (11.2-15.7); Immature Grans % 0.6; Lymphocytes % 24.2; MCH 29.4 pg (27.0-33.0); MCHC 33.4 % (32.0-36.0); MCV 88 fL (80-95); MPV 8.3 fL (8.0-11.0); Platelet Count 232 10^3/uL (130-400); RBC 5.27 10^6/uL (3.93-5.22); RDW 12.4 % (11.7-14.6)
[2023-11-13 13:36] LABS: PTT Activated 22.9 sec (23.6-32.8); Prothrombin Time 10.4 sec (9.1-11.1)
[2023-11-13 13:37] LABS: ALT 42 U/L (14-59); AST 27 U/L (15-37); Albumin 3.3 g/dL (3.4-5.0); Alkaline Phosphatase 66 U/L (46-116); Anion Gap 10.7 mmol/L (3-11); BUN 17 mg/dL (7-18); Bilirubin, Total 0.7 mg/dL (0.2-1.0); CO2 25.3 mmol/L (21.0-32.0); CREATININE 1.1 mg/dL (0.55-1.02); Calcium 8.8 mg/dL (8.5-10.1); Chloride 104 mmol/L (98-107); Estimated GFR 58.61 (mL/min/1.73m2); Glucose 105 mg/dL (74-106); Magnesium 2.2 mg/dL (1.8-2.4); Potassium 3.8 mmol/L (3.5-5.1); Sodium 140 mmol/L (136-145); Total Protein 6.9 g/dL (6.4-8.2); Troponin I < 50 ng/L (< or =60)
--- NOTE | 2023-11-13 14:15 | DI.CT_ITS ---
Exam(s) CT BRAIN NECK CTA EXAM: CT BRAIN NECK CTA CLINICAL HISTORY: Near syncope, history of mets. TECHNIQUE: Imaging Protocol: Axial CT angiography was performed with multi-slice acquisition and mu lti-planar and MIP reconstructions. CONTRAST MATERIAL: Intravenous: Omnipaque 350 Contrast volume:100 ml COMPARISON: CT CT CHEST/ABD/PEL W from 05/15/[address] HEAD WO from 09/26/2022 FINDINGS: CT Head W/O and W contrast: Ventricles and Extra axial spaces: Normal in size and morphology for the patient's age. Hemorrhage: None. Cerebral parenchyma: Mild atrophy. Old area of encephalomalacia in right parietal lobe. Area of stabl e encephalomalacia left frontal lobe. Stable left basal ganglia lacunar infarct. Mild white matter c hanges of small vessel disease. No abnormal enhancing lesions. Midline shift: None. Brainstem/Cerebellum: Normal. Calvarium: Left frontal and right parietal craniotomy defects. Visualized Paranasal sinuses/Mastoids: Clear. Soft Tissues: Unremarkable. Enhancement: Normal. CTA Brain W: Internal Carotid Arteries: Petrous: Normal. Cavernous: Normal. Cerebral: Normal. Middle Cerebral Arteries: Right: No aneurysm, occlusion or significant stenosis. Left: No aneurysm, occlusion or significant stenosis. Anterior Cerebral Arteries: Right: No aneurysm, occlusion or significant stenosis. Left: No aneurysm, occlusion or significant stenosis. Posterior cerebral Arteries: Right: No aneurysm, occlusion or significant stenosis. Left: No aneurysm, occlusion or significant stenosis. Vertebral Arteries: Right: No aneurysm, occlusion or significant stenosis. Left: No aneurysm, occlusion or significant stenosis. Basilar Artery: No aneurysm, occlusion or significant stenosis. CTA Neck W: Common Carotid: No visible plaque. Right: No dissection, occlusion or significant stenosis. Left: No dissection, occlusion or significant stenosis. External Carotid: Right: No dissection, occlusion or significant stenosis. Left: No dissection, occlusion or significant stenosis. Internal Carotid: No visible plaque. Right: No dissection, occlusion or significant stenosis. Left: No dissection, occlusion or significant stenosis. Vertebral Artery: Small plaque. Right: No dissection, occlusion or significant stenosis. Left: No dissection, occlusion or significant stenosis. Lung Apices: Limited evaluation due to respiratory motion. Bones: No acute abnormality. Degenerative changes in the spine. Soft Tissues: Stable thyroid nodules. IMPRESSION: 1. CTA brain: Normal CTA examination of the [place]. 2. Head CT: Stable areas of encephalomalacia in left frontal and right parietal lobes with overlying craniotomy defects. 3. CTA neck: Normal CTA examination of the neck. RADIATION DOSE DELIVERED: 1,902.1mGy.cm Total DLP 1,902.1mGy.cm Total DLP DATA REPOSITORY: All CT scans at this facility are submitted to the National Radiology Data Registry (NRDR) Dose Index Registry (DIR) with the [employer] (ACR). RADIATION OPTIMIZATION: All CT scans at this facility use at least one of these dose optimization te chniques: automated exposure control; mA and/or kV adjustment per patient size (includes targeted exa ms where dose is matched to clinical indication); or iterative reconstruction.
--- NOTE | 2023-11-13 14:15 | DI.CT_ITS ---
Exam(s) CT CHEST PE CTA EXAM: CT CHEST PE CTA CLINICAL HISTORY: Near syncope, history of mets. TECHNIQUE: Imaging Protocol: Axial CT angiography was performed with multi-slice acquisition and mu lti-planar reconstructions as well as axial, coronal and sagittal MIP reconstructions. CONTRAST MATERIAL: Intravenous: Omnipaque 350 Contrast volume:100 ml COMPARISON: CT CT CHEST W from 09/26/[address] BRAIN NECK CTA from 11/13/2023 FINDINGS: Stable thyroid nodules. Pulmonary Arteries: No evidence of filling defect to suggest pulmonary emboli. Tracheobronchial tree: No mucous plugging. Mediastinum and Lisa: No dominant adenopathy or fluid collection. Pulmonary parenchyma: Stable lingular scarring. No consolidation. Stable nodule superior segment le ft lower lobe. Mild emphysematous changes. Pleura: No effusion or pneumothorax. Heart: The heart is not dilated. No coronary artery calcifications are seen. Aorta: Thoracic aorta non-dilated. No dissection. Upper abdomen: Severe hepatic steatosis. Low-density lesions again noted. Difficult to visualize d ue to extreme fatty infiltration of the liver. Bones: Old bilateral rib fractures. Tubes, Catheters, and Lines: None Soft tissues: Unremarkable. IMPRESSION: No evidence of pulmonary embolism other acute abnormality.. RADIATION DOSE DELIVERED: 321.74mGy.cm Total DLP DATA REPOSITORY: All CT scans at this facility are submitted to the National Radiology Data Registry (NRDR) Dose Index Registry (DIR) with the [employer] (ACR). RADIATION OPTIMIZATION: All CT scans at this facility use at least one of these dose optimization te chniques: automated exposure control; mA and/or kV adjustment per patient size (includes targeted exa ms where dose is matched to clinical indication); or iterative reconstruction.
[2023-11-13] MEDS: Omnipaque 350 MG/ML 100 ML BTL 185 ML IJ (15:16)
--- NOTE | 2023-11-13 15:47 | W.ED.GENAD ---
HPI General Mode of arrival: EMS. Date/Time Provider Initiated Documentation: 11/13/23 12:44. Limitations to Documentation: no limitations. Information obtained by: patient. History of Present Illness 58 year old F presents to the emergency department with the chief complaint of Near syncope, Patient started experiencing this hour(s) (1) and it has been now resolved. No relieving factors improve symptom(s), No exacerbating factors reported . Patient notes no other symptoms.. Patient did receive the following treatments prior to arrival, none Related Data Home Medications Medication Instructions Recorded Confirmed citalopram 10 mg tablet (Celexa) 20 mg PO HS 03/24/13 05/27/21 Tylenol 325 mg tablet 325 mg PO DAILY 11/20/17 05/24/22 (acetaminophen) letrozole 2.5 mg tablet 2.5 mg PO DAILY 11/20/17 05/24/22 multivitamin 1 ea PO DAILY 11/20/17 05/24/22 aspirin 81 mg tablet,delayed 81 mg PO DAILY 12/09/20 05/24/22 release (Adult Low Dose Aspirin) [id number] 333 mg-133 1 tab PO DAILY 12/17/20 05/24/22 mg-5 mg tablet vit B complex 100 combo no.2 100 tab PO 01/10/23 mg tablet,extended release (B-100 Complex ER) mirabegron 50 mg tablet,extended 50 mg PO DAILY #30 tabs 06/19/23 06/19/23 release 24 hr (Myrbetriq) Previous Rx's Medication Instructions Recorded mirabegron 50 mg tablet,extended 50 mg PO DAILY #30 tabs 06/19/23 release 24 hr (Myrbetriq) Allergies Allergy/AdvReac Type Severity Reaction Status Date / Time aprepitant [From Emend] AdvReac Intermediate flushing Unverified 06/19/23 13:47 and cramping General Stated Complaint: Dizzy/Sync DAREN: 4 Review of Systems Constitutional Constitutional: Denies chills, Denies fever(s), Denies headache(s), Denies malaise, Denies poor appetite and Denies weakness ENT Ears, Nose, Mouth, and Throat: Denies dizziness and Denies headache(s) Cardiovascular Cardiovascular: Denies chest pain, Denies syncope, Reports lightheadedness and Denies dyspnea Respiratory Respiratory: Denies cough and Denies dyspnea Gastrointestinal Gastrointestinal: Denies abdominal pain, Reports diarrhea, Denies nausea and Denies vomiting Musculoskeletal Musculoskeletal: Denies abnormal gait Neurologic Neurologic: Denies abnormal movements, Denies abnormal gait, Denies dizziness, Denies syncope, Denies headache(s), Denies localized weakness, Denies paresthesias and Denies weakness Exam Const General: cooperative, comfortable, no acute distress, not diaphoretic and not ill appearing Orientation: alert, awake and oriented x3 Limitations: mental status not altered HENPR Head: normal to inspection Ears: hearing grossly normal bilaterally and TM's normal bilaterally Mouth: oral mucosae normal and moist mucous membranes Throat: posterior oropharynx normal Eyes Visual Nur: normal visual nur by confrontation Alignment and Position: alignment normal Periorbital: periorbital findings normal Eyelids: eyelids normal Sclera: sclerae normal Pupils: PERRL EOM: EOM intact bilaterally Neck Neck: normal visual inspection, full ROM, trachea midline, supple and no anterior neck swelling Chest Chest: normal inspection of the chest Resp Effort & Inspection: normal respiratory effort and able to speak in complete sentences Auscultation: clear to auscultation bilaterally Cardio Jugular venous pressure: no JVD Palpation: normal PMI Rate: regular rate Rhythm: regular rhythm Heart Sounds: S1 normal, S2 normal, no click, no gallops, no murmurs and no rubs Pulses: radial pulses present bilaterally 2+ Skin General skin exam: no rashes or lesions noted Neuro General: patient alert, patient awake, patient oriented x3, moves all extremities and CN's II-XI intact bilaterally Cognition: normal cognition Speech: speech normal Motor: no pronator drift, no movement abnormalities noted and no fasciculations Sensory Exam: no sensory deficits noted Course Vital Signs Vital signs: Vital Signs Temperature 36.8 C 11/13/23 12:43 Pulse 69 11/13/23 12:43 Respiratory Rate 18 11/13/23 12:43 Blood Pressure 97/49 L 11/13/23 12:43 Pulse Oximetry 98 11/13/23 12:43 Temperature 36.8 C 11/13/23 12:43 Temperature Source Oral 11/13/23 12:43 Pulse 69 11/13/23 12:43 Respiratory Rate 18 11/13/23 12:43 Blood Pressure 97/49 L 11/13/23 12:43 Blood Pressure Position Supine 11/13/23 12:43 Pulse Oximetry 98 11/13/23 12:43 Oxygen Delivery Method Room Air 11/13/23 12:43 Oxygen Flow Rate 0 11/13/23 12:43 Lab/Test Results Lab/Test Results: Laboratory Tests Range/Units 11/13/23 13:00 WBC (4.4-10.8) 10^3/uL 6.70 RBC (3.93-5.22) 10^6/uL 5.27 H Hgb (11.2-15.7) g/dL 15.5 Hct (36.0-46.0) % 46.4 H MCV (80-95) fL 88 MCH (27.0-33.0) pg 29.4 MCHC (32.0-36.0) % 33.4 RDW (11.7-14.6) % 12.4 Plt Count (130-400) 10^3/uL 232 MPV (8.0-11.0) fL 8.3 Immature Gran % 0.6 Neutrophils % 66.0 Lymphocytes % 24.2 Monocytes % 7.0 Eosinophils % 1.3 Basophils % 0.9 Nucleated RBC % (0.0-0.3) % 0.0 Absolute Neutrophils (1.2-6.7) 10^3/uL 4.42 Absolute Lymphocytes (1.2-3.4) 10^3/uL 1.62 Absolute Monocytes (0.1-0.8) 10^3/uL 0.47 Absolute Eosinophils (0.0-0.7) 10^3/uL 0.09 Absolute Basophils (0.0-0.2) 10^3/uL 0.06 PT (9.1-11.1) sec 10.4 INR (0.9-1.1) 1.0 APTT (23.6-32.8) sec 22.9 L Sodium (136-145) mmol/L 140 Potassium (3.5-5.1) mmol/L 3.8 Chloride (98-107) mmol/L 104 Carbon Dioxide (21.0-32.0) mmol/L 25.3 Anion Gap (3-11) mmol/L 10.7 BUN (7-18) mg/dL 17 Creatinine (0.55-1.02) mg/dL 1.1 H Est GFR (CKD-EPI 2020) (mL/min/1.73m2) 58.61 Glucose (74-106) mg/dL 105 Calcium (8.5-10.1) mg/dL 8.8 Magnesium (1.8-2.4) mg/dL 2.2 Total Bilirubin (0.2-1.0) mg/dL 0.7 AST (15-37) U/L 27 ALT (14-59) U/L 42 Alkaline Phosphatase (46-116) U/L 66 Troponin I (< or =60) ng/L < 50 Total Protein (6.4-8.2) g/dL 6.9 Albumin (3.4-5.0) g/dL 3.3 L Medical Decision Making Patient presenting to the emergency department for chief complaint of near syncope. Patient arriving via EMS. Patient reports that she slept in this morning and had not eaten anything and got up to go to the bathroom when she had a near syncopal episode. Patient states that she got lightheaded and vision closed in on her and she had diarrhea. Patient denies falling hitting her head or any other acute injury. Patient states full resolution of symptoms. She does state this has happened in the past and there is suspicion of low blood sugar given that it also happened in the circumstance of poor oral intake. Patient has significant past medical history of breast cancer with metastasis to lungs and brain with surgical and radiation therapy but this has been many years ago. Physical exam shows unremarkable neurological exam, patient alert and oriented x 3, normal movement of extremities, no other focal findings noted. Given patient's history will be thorough and perform EKG check labs and perform CT of head and chest given history of cancer. Will give small fluid bolus pending results. Review of labs show an overall nondiagnostic CBC, CMP shows slightly elevated creatinine 1.1 otherwise no acute findings. Troponin is initially negative nondetected, slightly low albumin at 3.3. Labs otherwise nondiagnostic. Still pending urinalysis. Reviewed patient's head CTA along with pulmonary CTA. Radiologist interpretation shows stable areas of encephalomalacia in left frontal and right parietal lobes with overlying craniotomy defects. Otherwise no acute findings. CTA chest shows no PE or other acute findings. Reassessed patient and she remains asymptomatic. Patient was able to ambulate in the department with no worrisome findings. Patient pending delta troponin and urinalysis with high suspicion of discharge home. Care management was consulted as patient did state that she did have some healing issues in her home and care management was able to discuss this with patient patient requesting discharge home which I feel is appropriate. Will also feed patient. EKG was reviewed and please see physician interpretation for full interpretation of EKG but upon my review patient is in sinus rhythm with no acute findings to suggest STEMI Imaging Data Radiologic Study: Imaging: CT Scan Radiologist's impression: Exam(s) CT BRAIN NECK CTA EXAM: CT BRAIN NECK CTA CLINICAL HISTORY: Near syncope, history of mets. TECHNIQUE: Imaging Protocol: Axial CT angiography was performed with multi-slice acquisition and multi-planar and MIP reconstructions. CONTRAST MATERIAL: Intravenous: Omnipaque 350 Contrast volume:100 ml COMPARISON: CT CT CHEST/ABD/PEL W from 05/15/[address] HEAD WO from 09/26/2022 FINDINGS: CT Head W/O and W contrast: Ventricles and Extra axial spaces: Normal in size and morphology for the patient's age. Hemorrhage: None. Cerebral parenchyma: Mild atrophy. Old area of encephalomalacia in right parietal lobe. Area of stable encephalomalacia left frontal lobe. Stable left basal ganglia lacunar infarct. Mild white matter changes of small vessel disease. No abnormal enhancing lesions. Midline shift: None. Brainstem/Cerebellum: Normal. Calvarium: Left frontal and right parietal craniotomy defects. Visualized Paranasal sinuses/Mastoids: Clear. Soft Tissues: Unremarkable. Enhancement: Normal. CTA Brain W: Internal Carotid Arteries: Petrous: Normal. Cavernous: Normal. Cerebral: Normal. Middle Cerebral Arteries: Right: No aneurysm, occlusion or significant stenosis. Left: No aneurysm, occlusion or significant stenosis. Anterior Cerebral Arteries: Right: No aneurysm, occlusion or significant stenosis. Left: No aneurysm, occlusion or significant stenosis. Posterior cerebral Arteries: Right: No aneurysm, occlusion or significant stenosis. Left: No aneurysm, occlusion or significant stenosis. Vertebral Arteries: Right: No aneurysm, occlusion or significant stenosis. Left: No aneurysm, occlusion or significant stenosis. Basilar Artery: No aneurysm, occlusion or significant stenosis. CTA Neck W: Common Carotid: No visible plaque. Right: No dissection, occlusion or significant stenosis. Left: No dissection, occlusion or significant stenosis. External Carotid: Right: No dissection, occlusion or significant stenosis. Left: No dissection, occlusion or significant stenosis. Internal Carotid: No visible plaque. Right: No dissection, occlusion or significant stenosis. Left: No dissection, occlusion or significant stenosis. Vertebral Artery: Small plaque. Right: No dissection, occlusion or significant stenosis. Left: No dissection, occlusion or significant stenosis. Lung Apices: Limited evaluation due to respiratory motion. Bones: No acute abnormality. Degenerative changes in the spine. Soft Tissues: Stable thyroid nodules. IMPRESSION: 1. CTA brain: Normal CTA examination of the [place]. 2. Head CT: Stable areas of encephalomalacia in left frontal and right parietal lobes with overlying craniotomy defects. 3. CTA neck: Normal CTA examination of the neck. Radiologic Study #2: Imaging: CT Scan Radiologist's impression: Exam(s) a CT:CT chest PE CTA Exam(s) CT CHEST PE CTA EXAM: CT CHEST PE CTA CLINICAL HISTORY: Near syncope, history of mets. TECHNIQUE: Imaging Protocol: Axial CT angiography was performed with multi-slice acquisition and multi-planar reconstructions as well as axial, coronal and sagittal MIP reconstructions. CONTRAST MATERIAL: Intravenous: Omnipaque 350 Contrast volume:100 ml COMPARISON: CT CT CHEST W from 09/26/[address] BRAIN NECK CTA from 11/13/2023 FINDINGS: Stable thyroid nodules. Pulmonary Arteries: No evidence of filling defect to suggest pulmonary emboli. Tracheobronchial tree: No mucous plugging. Mediastinum and Lisa: No dominant adenopathy or fluid collection. Pulmonary parenchyma: Stable lingular scarring. No consolidation. Stable nodule superior segment left lower lobe. Mild emphysematous changes. Pleura: No effusion or pneumothorax. Heart: The heart is not dilated. No coronary artery calcifications are seen. Aorta: Thoracic aorta non-dilated. No dissection. Upper abdomen: Severe hepatic steatosis. Low-density lesions again noted. Difficult to visualize due to extreme fatty infiltration of the liver. Bones: Old bilateral rib fractures. Tubes, Catheters, and Lines: None Soft tissues: Unremarkable. IMPRESSION: No evidence of pulmonary embolism other acute abnormality. Lab Data Lab results reviewed: Yes I reviewed the patient's lab results. Quality:SDOH Health Related Social Needs: No Data to Display PFSH All Active Problems Mixed incontinence urge and stress (Acute) Microscopic hematuria (Acute) Medical History Anxiety with depression HLD (hyperlipidemia) Left foot infection Lung mass [id number] [place] inhalation medication. States she had several lung tumors treated with medication and when she blew her nose they all came out. Also had radiation and chemotherapy. Liver nodule Pneumonia Elevated blood sugar Balance problem Risk for falls UTI (urinary tract infection) Urinary frequency Metastatic breast cancer Seizure pt. states this was 2011, she had three tumors in her brain, only had the one seizure. States hasn't required any follow-up Degenerative joint disease Subclinical hyperthyroidism Surgical History History of lumpectomy of right breast 2006 History of brain tumor 3 brain tumors removed 2011. Social History Smoking/Tobacco Use Status: Current every day Tobacco Type: e-cigarettes Smoking risk assessment performed?: Yes Alcohol Intake: never Drug use: Occasionally Substance use type: marijuana Current gender identity: female Do you feel safe at home: Yes Do you feel safe in your relationship?: Yes Sign Out Sign Out Data: Sign Out Comment: Patient pending delta Trop and urinalysis. Suspect patient will be discharged for near syncope and patient requesting to go home. Last updated by Juan Hidalgo NP at 11/13/23 16:31 Discharge Plan Discharge Details Chief Complaint: Dizzy/Sync Primary Care Provider: LEONARDO BUSH ED Provider: Juan Hidalgo Home Meds and New Rx's Prescriptions: No Action aspirin [Adult Low Dose Aspirin] 81 mg tablet,delayed release (DR/EC) 81 mg PO DAILY Myrbetriq 50 mg tablet extended release 24 hr 50 mg PO DAILY Qty: 30 3RF acetaminophen [Tylenol] 325 MG tablet 325 mg PO DAILY letrozole 2.5 MG tablet 2.5 mg PO DAILY multivitamin 1 EACH capsule 1 ea PO DAILY B-100 Complex 100 mg tablet extended release PO citalopram [Celexa] 10 MG tablet 20 mg PO HS [id number] 333-133-5 mg Tablet 1 tab PO DAILY
[2023-11-13 16:50] LABS: Troponin I < 50 ng/L (< or =60)
[2023-11-13 17:41] LABS: Bilirubin Negative (Negative); Blood Trace-intact (Negative); Clarity Clear (Clear); Glucose Negative (Negative); Ketones Negative (Negative); Leukocyte Esterase Negative (Negative); Nitrite Negative (Negative); Urobilinogen 0.2 mg/dL (Up to 0.2)
[2023-11-13 17:51] LABS: Bacteria Negative HPF (Negative); C & S Indicated? No; Crystals Negative HPF (Negative); Epithelial Cells Rare HPF (Negative); Mucus Negative (Negative); WBC Negative HPF (0-5)
--- NOTE | 2023-11-13 18:11 | ED.GENADUL_ITS ---
HPI General Mode of arrival: EMS . Date/Time Provider Initiated Documentation: 11/13/23 12:44 . Limitations to Documentation: no limitations . Information obtained by: patient . History of Present Illness No relieving factors improve symptom(s), No exacerbating factors reported . Patient notes no other symptoms.. Patient did receive the following treatments prior to arrival, none Related Data Home Medications Medication Instructions Recorded Confirmed citalopram 10 mg tablet (Celexa) 20 mg PO HS 03/24/13 05/27/21 Tylenol 325 mg tablet 325 mg PO DAILY 11/20/17 05/24/22 (acetaminophen) letrozole 2.5 mg tablet 2.5 mg PO DAILY 11/20/17 05/24/22 multivitamin 1 ea PO DAILY 11/20/17 05/24/22 aspirin 81 mg tablet,delayed 81 mg PO DAILY 12/09/20 05/24/22 release (Adult Low Dose Aspirin) [id number] 333 mg-133 1 tab PO DAILY 12/17/20 05/24/22 mg-5 mg tablet vit B complex 100 combo no.2 100 tab PO 01/10/23 mg tablet,extended release (B-100 Complex ER) mirabegron 50 mg tablet,extended 50 mg PO DAILY #30 tabs 06/19/23 06/19/23 release 24 hr (Myrbetriq) Previous Rx's Medication Instructions Recorded mirabegron 50 mg tablet,extended 50 mg PO DAILY #30 tabs 06/19/23 release 24 hr (Myrbetriq) Allergies Allergy/AdvReac Type Severity Reaction Status Date / Time aprepitant [From Emend] AdvReac Intermediate flushing Unverified 06/19/23 13:47 and cramping General Stated Complaint: Dizzy/Sync DAREN: 4 Course Vital Signs Vital signs: Vital Signs Temperature 36.8 C 11/13/23 12:43 Pulse 69 11/13/23 12:43 Respiratory Rate 18 11/13/23 12:43 Blood Pressure 97/49 L 11/13/23 12:43 Pulse Oximetry 98 11/13/23 12:43 Temperature 36.8 C 11/13/23 12:43 Temperature Source Oral 11/13/23 12:43 Pulse 69 11/13/23 12:43 Respiratory Rate 18 11/13/23 12:43 Blood Pressure 97/49 L 11/13/23 12:43 Blood Pressure Position Supine 11/13/23 12:43 Pulse Oximetry 98 11/13/23 12:43 Oxygen Delivery Method Room Air 11/13/23 12:43 Oxygen Flow Rate 0 11/13/23 12:43 Lab/Test Results Lab/Test Results: Laboratory Tests Range/Units 11/13/23 11/13/23 11/13/23 13:00 16:20 16:29 WBC (4.4-10.8) 10^3/uL 6.70 RBC (3.93-5.22) 10^6/uL 5.27 H Hgb (11.2-15.7) g/dL 15.5 Hct (36.0-46.0) % 46.4 H MCV (80-95) fL 88 MCH (27.0-33.0) pg 29.4 MCHC (32.0-36.0) % 33.4 RDW (11.7-14.6) % 12.4 Plt Count (130-400) 10^3/uL 232 MPV (8.0-11.0) fL 8.3 Immature Gran % 0.6 Neutrophils % 66.0 Lymphocytes % 24.2 Monocytes % 7.0 Eosinophils % 1.3 Basophils % 0.9 Nucleated RBC % (0.0-0.3) % 0.0 Absolute Neutrophils (1.2-6.7) 10^3/uL 4.42 Absolute Lymphocytes (1.2-3.4) 10^3/uL 1.62 Absolute Monocytes (0.1-0.8) 10^3/uL 0.47 Absolute Eosinophils (0.0-0.7) 10^3/uL 0.09 Absolute Basophils (0.0-0.2) 10^3/uL 0.06 PT (9.1-11.1) sec 10.4 INR (0.9-1.1) 1.0 APTT (23.6-32.8) sec 22.9 L Sodium (136-145) mmol/L 140 Potassium (3.5-5.1) mmol/L 3.8 Chloride (98-107) mmol/L 104 Carbon Dioxide (21.0-32.0) mmol/L 25.3 Anion Gap (3-11) mmol/L 10.7 BUN (7-18) mg/dL 17 Creatinine (0.55-1.02) mg/dL 1.1 H Est GFR (CKD-EPI 2020) (mL/min/1.73m2) 58.61 Glucose (74-106) mg/dL 105 Calcium (8.5-10.1) mg/dL 8.8 Magnesium (1.8-2.4) mg/dL 2.2 Total Bilirubin (0.2-1.0) mg/dL 0.7 AST (15-37) U/L 27 ALT (14-59) U/L 42 Alkaline Phosphatase (46-116) U/L 66 Troponin I (< or =60) ng/L < 50 < 50 Total Protein (6.4-8.2) g/dL 6.9 Albumin (3.4-5.0) g/dL 3.3 L Urine Color Cancelled Urine Clarity Cancelled Urine pH Cancelled Ur Specific [place] Cancelled Urine Protein Cancelled Urine Ketones Cancelled Urine Blood Cancelled Urine Nitrite Cancelled Urine Bilirubin Cancelled Urine Urobilinogen Cancelled Ur Leukocyte Esterase Cancelled Urine RBC (0-2) HPF Urine WBC (0-5) HPF Ur Epithelial Cells (Negative) HPF Urine Crystals (Negative) HPF Urine Bacteria (Negative) HPF Urine Mucus (Negative) Ur Culture Indicated? Urine Glucose Cancelled Range/Units 11/13/23 17:30 WBC (4.4-10.8) 10^3/uL RBC (3.93-5.22) 10^6/uL Hgb (11.2-15.7) g/dL Hct (36.0-46.0) % MCV (80-95) fL MCH (27.0-33.0) pg MCHC (32.0-36.0) % RDW (11.7-14.6) % Plt Count (130-400) 10^3/uL MPV (8.0-11.0) fL Immature Gran % Neutrophils % Lymphocytes % Monocytes % Eosinophils % Basophils % Nucleated RBC % (0.0-0.3) % Absolute Neutrophils (1.2-6.7) 10^3/uL Absolute Lymphocytes (1.2-3.4) 10^3/uL Absolute Monocytes (0.1-0.8) 10^3/uL Absolute Eosinophils (0.0-0.7) 10^3/uL Absolute Basophils (0.0-0.2) 10^3/uL PT (9.1-11.1) sec INR (0.9-1.1) APTT (23.6-32.8) sec Sodium (136-145) mmol/L Potassium (3.5-5.1) mmol/L Chloride (98-107) mmol/L Carbon Dioxide (21.0-32.0) mmol/L Anion Gap (3-11) mmol/L BUN (7-18) mg/dL Creatinine (0.55-1.02) mg/dL Est GFR (CKD-EPI 2020) (mL/min/1.73m2) Glucose (74-106) mg/dL Calcium (8.5-10.1) mg/dL Magnesium (1.8-2.4) mg/dL Total Bilirubin (0.2-1.0) mg/dL AST (15-37) U/L ALT (14-59) U/L Alkaline Phosphatase (46-116) U/L Troponin I (< or =60) ng/L Total Protein (6.4-8.2) g/dL Albumin (3.4-5.0) g/dL Urine Color Yellow Urine Clarity Clear Urine pH 7.0 Ur Specific [place] 1.010 Urine Protein Trace H Urine Ketones Negative Urine Blood Trace-intact H Urine Nitrite Negative Urine Bilirubin Negative Urine Urobilinogen 0.2 Ur Leukocyte Esterase Negative Urine RBC (0-2) HPF 3-5 H Urine WBC (0-5) HPF Negative Ur Epithelial Cells (Negative) HPF Rare Urine Crystals (Negative) HPF Negative Urine Bacteria (Negative) HPF Negative Urine Mucus (Negative) Negative Ur Culture Indicated? No Urine Glucose Negative Medical Decision Making Report and care of patient signed out from Stephen Hidalgo. Patient has remained hemodynamically and asymptomatic while remaining in department waiting for troponin. She ate dinner with no complaints. No dysrhythmias on telemetry. She is stable and ready for discharge home after review of her delta troponin which also remained negative. There have been no medication changes she should push fluids to stay well-hydrated Medical Records Medical records reviewed: Yes I reviewed the patient's medical records. Lab Data Lab results reviewed: Yes I reviewed the patient's lab results. Lab results narrative: Laboratory Tests Range/Units 11/13/23 11/13/23 11/13/23 13:00 16:20 16:29 WBC (4.4-10.8) 10^3/uL 6.70 RBC (3.93-5.22) 10^6/uL 5.27 H Hgb (11.2-15.7) g/dL 15.5 Hct (36.0-46.0) % 46.4 H MCV (80-95) fL 88 MCH (27.0-33.0) pg 29.4 MCHC (32.0-36.0) % 33.4 RDW (11.7-14.6) % 12.4 Plt Count (130-400) 10^3/uL 232 MPV (8.0-11.0) fL 8.3 Immature Gran % 0.6 Neutrophils % 66.0 Lymphocytes % 24.2 Monocytes % 7.0 Eosinophils % 1.3 Basophils % 0.9 Nucleated RBC % (0.0-0.3) % 0.0 Absolute Neutrophils (1.2-6.7) 10^3/uL 4.42 Absolute Lymphocytes (1.2-3.4) 10^3/uL 1.62 Absolute Monocytes (0.1-0.8) 10^3/uL 0.47 Absolute Eosinophils (0.0-0.7) 10^3/uL 0.09 Absolute Basophils (0.0-0.2) 10^3/uL 0.06 PT (9.1-11.1) sec 10.4 INR (0.9-1.1) 1.0 APTT (23.6-32.8) sec 22.9 L Sodium (136-145) mmol/L 140 Potassium (3.5-5.1) mmol/L 3.8 Chloride (98-107) mmol/L 104 Carbon Dioxide (21.0-32.0) mmol/L 25.3 Anion Gap (3-11) mmol/L 10.7 BUN (7-18) mg/dL 17 Creatinine (0.55-1.02) mg/dL 1.1 H Est GFR (CKD-EPI 2020) (mL/min/1.73m2) 58.61 Glucose (74-106) mg/dL 105 Calcium (8.5-10.1) mg/dL 8.8 Magnesium (1.8-2.4) mg/dL 2.2 Total Bilirubin (0.2-1.0) mg/dL 0.7 AST (15-37) U/L 27 ALT (14-59) U/L 42 Alkaline Phosphatase (46-116) U/L 66 Troponin I (< or =60) ng/L < 50 < 50 Total Protein (6.4-8.2) g/dL 6.9 Albumin (3.4-5.0) g/dL 3.3 L Urine Color Cancelled Urine Clarity Cancelled Urine pH Cancelled Ur Specific [place] Cancelled Urine Protein Cancelled Urine Ketones Cancelled Urine Blood Cancelled Urine Nitrite Cancelled Urine Bilirubin Cancelled Urine Urobilinogen Cancelled Ur Leukocyte Esterase Cancelled Urine RBC (0-2) HPF Urine WBC (0-5) HPF Ur Epithelial Cells (Negative) HPF Urine Crystals (Negative) HPF Urine Bacteria (Negative) HPF Urine Mucus (Negative) Ur Culture Indicated? Urine Glucose Cancelled Range/Units 11/13/23 17:30 WBC (4.4-10.8) 10^3/uL RBC (3.93-5.22) 10^6/uL Hgb (11.2-15.7) g/dL Hct (36.0-46.0) % MCV (80-95) fL MCH (27.0-33.0) pg MCHC (32.0-36.0) % RDW (11.7-14.6) % Plt Count (130-400) 10^3/uL MPV (8.0-11.0) fL Immature Gran % Neutrophils % Lymphocytes % Monocytes % Eosinophils % Basophils % Nucleated RBC % (0.0-0.3) % Absolute Neutrophils (1.2-6.7) 10^3/uL Absolute Lymphocytes (1.2-3.4) 10^3/uL Absolute Monocytes (0.1-0.8) 10^3/uL Absolute Eosinophils (0.0-0.7) 10^3/uL Absolute Basophils (0.0-0.2) 10^3/uL PT (9.1-11.1) sec INR (0.9-1.1) APTT (23.6-32.8) sec Sodium (136-145) mmol/L Potassium (3.5-5.1) mmol/L Chloride (98-107) mmol/L Carbon Dioxide (21.0-32.0) mmol/L Anion Gap (3-11) mmol/L BUN (7-18) mg/dL Creatinine (0.55-1.02) mg/dL Est GFR (CKD-EPI 2020) (mL/min/1.73m2) Glucose (74-106) mg/dL Calcium (8.5-10.1) mg/dL Magnesium (1.8-2.4) mg/dL Total Bilirubin (0.2-1.0) mg/dL AST (15-37) U/L ALT (14-59) U/L Alkaline Phosphatase (46-116) U/L Troponin I (< or =60) ng/L Total Protein (6.4-8.2) g/dL Albumin (3.4-5.0) g/dL Urine Color Yellow Urine Clarity Clear Urine pH 7.0 Ur Specific [place] 1.010 Urine Protein Trace H Urine Ketones Negative Urine Blood Trace-intact H Urine Nitrite Negative Urine Bilirubin Negative Urine Urobilinogen 0.2 Ur Leukocyte Esterase Negative Urine RBC (0-2) HPF 3-5 H Urine WBC (0-5) HPF Negative Ur Epithelial Cells (Negative) HPF Rare Urine Crystals (Negative) HPF Negative Urine Bacteria (Negative) HPF Negative Urine Mucus (Negative) Negative Ur Culture Indicated? No Urine Glucose Negative Quality:SDOH Health Related Social Needs: No Data to Display PFSH All Active Problems (Updated 11/13/23 @ 18:13 by Alicia Brown NP) Light-headedness (Acute) Mixed incontinence urge and stress (Acute) Microscopic hematuria (Acute) Medical History Anxiety with depression HLD (hyperlipidemia) Left foot infection Lung mass 714X [place] inhalation medication. States she had several lung tumors treated with medication and when she blew her nose they all came out. Also had radiation and chemotherapy. Liver nodule Pneumonia Elevated blood sugar Balance problem Risk for falls UTI (urinary tract infection) Urinary frequency Metastatic breast cancer Seizure pt. states this was 2011, she had three tumors in her brain, only had the one seizure. States hasn't required any follow-up Degenerative joint disease Subclinical hyperthyroidism Surgical History History of lumpectomy of right breast 2006 History of brain tumor 3 brain tumors removed 2011. Social History Smoking/Tobacco Use Status: Current every day Tobacco Type: e-cigarettes Smoking risk assessment performed?: Yes Alcohol Intake: never Drug use: Occasionally Substance use type: marijuana Current gender identity: female Do you feel safe at home: Yes Do you feel safe in your relationship?: Yes Sign Out Sign Out Data: Sign Out Comment: Patient pending delta Trop and urinalysis. Suspect patient will be discharged for near syncope and patient requesting to go home. Last updated by Juan Hidalgo NP at 11/13/23 16:31 Discharge Plan Disposition Patient Disposition: Home Condition: Stable Discharge Details Clinical Impression: Light-headedness Primary Care Provider: LEONARDO BUSH ED Provider: Alicia Brown Home Meds and New Rx's Prescriptions: Continued aspirin [Adult Low Dose Aspirin] 81 mg tablet,delayed release (DR/EC) 81 mg PO DAILY Myrbetriq 50 mg tablet extended release 24 hr 50 mg PO DAILY Qty: 30 3RF acetaminophen [Tylenol] 325 MG tablet 325 mg PO DAILY letrozole 2.5 MG tablet 2.5 mg PO DAILY multivitamin 1 EACH capsule 1 ea PO DAILY B-100 Complex 100 mg tablet extended release PO citalopram [Celexa] 10 MG tablet 20 mg PO HS [id number] 333-133-5 mg Tablet 1 tab PO DAILY Discharge Instructions Instructions: Lightheadedness (ED) Additional Instructions: Push fluids to stay well-hydrated Continue medications as previously directed Referrals: LEONARDO BUSH NP [Primary Care Provider] -
--- NOTE | 2023-11-13 19:33 | NUR.NOTE ---
Pt was discharged, family unwilling to care for pt at home due to ability to care for her at home, pt will be boarding in the ED, no [facility] beds available, JANEEN
[2023-11-13] MEDS: Melatonin 3 MG TAB PO (23:26)
[2023-11-13] MEDS: diphenhydrAMINE 25 MG CAP PO (23:26)
--- NOTE | 2023-11-14 02:14 | W.EDPROG ---
Date of service: 11/13/23 Time of Service: 23:30 Medical Decision Making This patient was signed out to me. Please see previous notes for H&P and initial eval. In brief, patient presented with near-syncope. Workup reassuring including labs, EKG, CTA head, CT for PE. Was discharged, however prior clinician unable to identify safe discharge plan (patient with some heating issues in her home); signed out to me with the plan for patient to remain in the ED overnight with son Yuriy to fix head in the morning and then return to the ED to bring patient home. Case management consultation placed for the morning should there be any issues with this plan. Slept overnight. Signed out to oncoming physician, patient awaiting confirmation of safe discharge plan. Quality:SDID Health Related Social Needs: No Data to Display Sign Out Sign Out Data: Sign Out Comment: Patient pending delta Trop and urinalysis. Suspect patient will be discharged for near syncope and patient requesting to go home. Last updated by Juan Hidalgo NP at 11/13/23 16:31 Sign Out Comment: Patient has been discharged to home but due to lack of safe discharge plan will be boarded in the emergency department overnight pending and case management consultation. Son is preparing home in obtaining heat source to except patient and plans to pick her up tomorrow Last updated by Alicia Brown NP at 11/13/23 22:51 Sign Out Comment: 58yo F presented with near syncope, medically cleared. Discharged from ED yesterday evening, but did not leave as heat is off at home and no safe place to go. Son repairing heat today and will come potato picker pt in AM. Case management consult in place should this not occur. Last updated by Mattie Perry MD at 11/14/23 05:29 Discharge Plan Disposition Patient Disposition: Home Condition: Stable Discharge Details Clinical Impression: Light-headedness Primary Care Provider: LEONARDO BUSH ED Provider: Mattie Perry Home Meds and New Rx's Prescriptions: Continued aspirin [Adult Low Dose Aspirin] 81 mg tablet,delayed release (DR/EC) 81 mg PO DAILY Myrbetriq 50 mg tablet extended release 24 hr 50 mg PO DAILY Qty: 30 3RF acetaminophen [Tylenol] 325 MG tablet 325 mg PO DAILY letrozole 2.5 MG tablet 2.5 mg PO DAILY multivitamin 1 EACH capsule 1 ea PO DAILY B-100 Complex 100 mg tablet extended release PO citalopram [Celexa] 10 MG tablet 20 mg PO HS [id number]-ewgw 333-133-5 mg Tablet 1 tab PO DAILY Discharge Instructions Instructions: Lightheadedness (ED) Additional Instructions: Push fluids to stay well-hydrated Continue medications as previously directed Referrals: LEONARDO BUSH, [employer] [Primary Care Provider] -
== END 2023-11-14 09:24 | disposition home or self-care (01) ==
PROVIDERS: Nurse Practitioner Acute Care; Nurse Practitioner Family; Emergency Provider Emergency Medicine; PCP Nurse Practitioner Family
DX: R42 Dizziness and giddiness (principal); Z85.3 Personal history of malignant neoplasm of breast; Z85.841 Personal history of malignant neoplasm of brain; Z59.11 Inadequate housing environmental temperature; Z79.82 Long term (current) use of aspirin
CPT/HCPCS: 123; 36415; 70496; 70498; 71275; 80053; 93005; 99285; 00123; 81003; 81015; 83735; 84484; 85025; 85610; 85730; 93010; 99283; J3490

== ENCOUNTER 2023-12-16 15:51 | Emergency (ER) | payer MEDICARE, SELFPAY ==
--- NOTE | 2023-12-16 15:45 | DI.RAD_ITS ---
Exam(s) XR RIBS RT PA CHEST 3V EXAM: XR RIBS RT PA CHEST 3V CLINICAL HISTORY: fall, right rib pain, concern for fract v pneumo. TECHNIQUE: 2D digital imaging was performed. COMPARISON: CT CT CHEST W from 09/26/[address] CHEST PE CTA from 11/13/2023 FINDINGS: Total five views Right ribs-four views: There is a nonacute incompletely healed fracture of the right 4th rib, as also seen on CT scan of 09/26/2022. There is also a healed fracture of the right 5th rib. No acute righ t rib fractures identified. Chest x-[id number] view: Elevated right hemidiaphragm is unchanged and there is platelike atelectasis in the lower right lung field. Also some increased markings in the lingular segment of the left christian g, as evident on prior CT scan 10/16/2022 and 11/13/2023. No obvious new pulmonary findings nor pleu ral effusions. There is no evidence of pneumothorax. IMPRESSION: No acute right rib fractures. Old right 4th and 5th rib fractures. No acute pulmonary findings. No pneumothorax nor pleural effusions. DATA REPOSITORY: RADIATION DOSE DELIVERED:
[2023-12-16 15:47] VITALS: BP 148/103; PULSE 86; RESP 18; TEMP 36.5; O2SAT 97
--- NOTE | 2023-12-16 15:57 | W.ED.GENAD ---
Discharge Plan Disposition Patient Disposition: Home Condition: Improving Discharge Details Clinical Impression: Chest wall contusion Primary Care Provider: Lashell Penn ED Provider: Jan Zelaya Home Meds and New Rx's Prescriptions: New lidocaine [Lidoderm] 5 % adhesive patch,medicated 1 patch topical DAILY PRNQty: 15 0RF Rx Instructions: leave on most painful area for up to 12 hrs No Action aspirin [Adult Low Dose Aspirin] 81 mg tablet,delayed release (DR/EC) 81 mg PO DAILY Myrbetriq 50 mg tablet extended release 24 hr 50 mg PO DAILY Qty: 30 3RF acetaminophen [Tylenol] 325 MG tablet 325 mg PO DAILY letrozole 2.5 MG tablet 2.5 mg PO DAILY multivitamin 1 EACH capsule 1 ea PO DAILY B-100 Complex 100 mg tablet extended release PO citalopram [Celexa] 10 MG tablet 20 mg PO HS [id number] 333-133-5 mg Tablet 1 tab PO DAILY Discharge Instructions Instructions: Contusion in Adults (ED) Additional Instructions: Continue with ibuprofen and/or acetaminophen as needed for pain. Use Lidoderm patch as needed. Please return to the emergency room for any worsening symptoms otherwise follow-up close with your primary care physician HPI General Date/Time Provider Initiated Documentation: 12/16/23 15:57. HPI Narrative: 57-year-old female history of metastatic breast cancer not currently undergoing radiation or chemotherapy, is scheduled to have a long mass biopsied on Monday unclear which side, patient has chronic balance issues after receiving treatment for brain mets, fell while transitioning out of bed landed between [place] and table, rib pain to right lateral chest, denies head injury loss of consciousness abdominal pain head neck or back discomfort. IV acetaminophen initiated by EMS. Patient denies blood thinner use Related Data Home Medications Medication Instructions Recorded Confirmed citalopram 10 mg tablet (Celexa) 20 mg PO HS 03/24/13 05/27/21 Tylenol 325 mg tablet 325 mg PO DAILY 11/20/17 05/24/22 (acetaminophen) letrozole 2.5 mg tablet 2.5 mg PO DAILY 11/20/17 05/24/22 multivitamin 1 ea PO DAILY 11/20/17 05/24/22 aspirin 81 mg tablet,delayed 81 mg PO DAILY 12/09/20 05/24/22 release (Adult Low Dose Aspirin) [id number]-[id number] 333 mg-133 1 tab PO DAILY 12/17/20 05/24/22 mg-5 mg tablet vit B complex 100 combo no.2 100 tab PO 01/10/23 mg tablet,extended release (B-100 Complex ER) mirabegron 50 mg tablet,extended 50 mg PO DAILY #30 tabs 06/19/23 06/19/23 release 24 hr (Myrbetriq) lidocaine 5 % topical patch 1 patch topical DAILY PRN #15 ea 12/16/23 (Lidoderm) Previous Rx's Medication Instructions Recorded mirabegron 50 mg tablet,extended 50 mg PO DAILY #30 tabs 06/19/23 release 24 hr (Myrbetriq) lidocaine 5 % topical patch 1 patch topical DAILY PRN #15 ea 12/16/23 (Lidoderm) Allergies Allergy/AdvReac Type Severity Reaction Status Date / Time aprepitant [From Emend] AdvReac Intermediate flushing Unverified 12/16/23 15:57 and cramping General Stated Complaint: Chest/Rib DAREN: 3 Review of Systems Narrative: Review of Systems Constitutional: negative Eyes: negative ENT: negative Cardiovascular: negative Respiratory: negative Gastrointestinal: negative : negative Musculoskeletal: Chest wall discomfort Skin: negative Neurologic: negative Psych: negative Exam Narrative Exam Narrative: Physical Examination General: alert, awake, cooperative, resting comfortably, no acute distress HEENT: normocephalic, atraumatic; PERRL, EOM intact, conjunctiva normal; no nasal discharge; moist mucous membranes, oral and pharyngeal mucosa normal, tolerating secretions Neck: supple, trachea midline; full ROM Chest: Early ecchymosis to right lateral ribs possible mild crepitus upon palpation Respiratory: normal respiratory effort, speaking in full sentences, diminished breath sounds right lung field, clear lung sounds left lung sandoval Cardiac: regular rate, regular rhythm, S1S2 intact, no murmurs rubs or gallops GI: abdomen soft, non-tender, non-distended; no palpable mass or hepatosplenomegaly Back: No midline spinal tenderness step-off crepitus or deformity Skin: no lesions, rashes or trauma appreciated Neuro: AAOx3, normal speech, moving all extremities; cranial nerves II through XII intact, 5 out of 5 strength upper and lower extremities bilaterally, no truncal ataxia Extremities: Pelvis stable, moving all extremities without deficit, no evidence of contusion abrasion deformity or crepitus in limbs, warm well-perfused Psych: Appropriate mood and affect Course Vital Signs Vital signs: Vital Signs Temperature 36.5 C 12/16/23 15:47 Pulse 86 12/16/23 15:47 Respiratory Rate 18 12/16/23 15:47 Blood Pressure 148/103 H 12/16/23 15:47 Pulse Oximetry 97 12/16/23 15:47 Temperature 36.5 C 12/16/23 15:47 Temperature Source Oral 12/16/23 15:47 Pulse 86 12/16/23 15:47 Respiratory Rate 18 12/16/23 15:47 Blood Pressure 148/103 H 12/16/23 15:47 Blood Pressure Position Supine 12/16/23 15:47 Pulse Oximetry 97 12/16/23 15:47 Oxygen Delivery Method Room Air 12/16/23 15:47 Oxygen Flow Rate 0 12/16/23 15:47 Pain Level 10 12/16/23 15:47 Comment took excedrin 12/16/23 15:47 Medical Decision Making 58-year-old female history of metastatic breast cancer history of mets to brain status postradiation, currently being evaluated for lung biopsy for suspected lung mass, unclear which side, presents after mechanical fall while transitioning from bed caught between table and [place], chronic balance issues leading to fall, no loss conscious no head injury no back or neck discomfort, patient does have ecchymosis to right lateral chest wall with mild crepitus on palpation, decreased lung sounds right lung field compared to left, concern for rib fractures with pneumothorax versus hemothorax versus consider right-sided laterality of new lung mass versus pleural effusion low suspicion for intracerebral process such as hemorrhage stroke mass or edema given history and physical, no signs of abdominal trauma or limb trauma, pain controlled with IV acetaminophen currently, will obtain screening x-ray right ribs as well as chest, disposition pending reassessment. Patient speaking full sentences saturating 95% on room air however placed on 1 to 2 L nasal cannula until suspected pneumothorax is ruled out. 16: 44 patient feeling better after rest and IV Tylenol, have added Lidoderm patch, negative for acute rib fractures or pneumothorax, history of old fourth and fifth right rib fractures. Patient satting normally on room air speaking full sentences no acute distress. Home care instructions and return precautions given. Son coming to pick her up Quality:SDOH Health Related Social Needs: No Data to Display PFSH All Active Problems (Updated 12/16/23 @ 16:44 by Jan Zelaya MD) Chest wall contusion (Acute) Mixed incontinence urge and stress (Acute) Microscopic hematuria (Acute) Medical History Anxiety with depression HLD (hyperlipidemia) Left foot infection Lung mass 714X [place] inhalation medication. States she had several lung tumors treated with medication and when she blew her nose they all came out. Also had radiation and chemotherapy. Liver nodule Pneumonia Elevated blood sugar Balance problem Risk for falls UTI (urinary tract infection) Urinary frequency Metastatic breast cancer Seizure pt. states this was 2011, she had three tumors in her brain, only had the one seizure. States hasn't required any follow-up Degenerative joint disease Subclinical hyperthyroidism Surgical History History of lumpectomy of right breast 2007 History of brain tumor 3 brain tumors removed 2011. Social History Smoking/Tobacco Use Status: Current every day Tobacco Type: e-cigarettes Smoking risk assessment performed?: Yes Alcohol Intake: never Drug use: Occasionally Substance use type: marijuana Housing: house Current gender identity: female Do you feel safe at home: Yes Do you feel safe in your relationship?: Yes
--- NOTE | 2023-12-16 16:20 | DI.VRAD_ITS ---
PROCEDURE INFORMATION: Exam: XR Right Ribs with PA Chest Exam date and time: 12/16/2023 4:05 PM Age: 58 years old Clinical indication: Other: Fall, right rib, concern for FX vs pneumo TECHNIQUE: Imaging protocol: Radiologic exam of the right ribs with PA chest. Views: 3 views Total images: 7 COMPARISON: CT CHEST PE CTA 11/13/2023 3:21 PM FINDINGS: Tubes, catheters and devices: Surgical clips project over the right chest and axilla. Lungs: Mild perihilar and left basilar linear atelectasis or scarring. Pleural spaces: Unremarkable. No pleural effusion. No pneumothorax. Heart/Mediastinum: Normal heart size. Bones/joints: There is irregularity of the right anterolateral 9th rib, consistent with a minimally displaced rib fracture. No other acute fractures are seen. IMPRESSION: There is irregularity of the right anterolateral 9th rib, consistent with a minimally displaced rib fracture. Dictated and Authenticated by: Sravanthi Trinh MD. Ordering:PSOBIA Montoya MD
[2023-12-16] MEDS: Lidocaine 5% Patch 1 PATCH TP (16:56)
[2023-12-16 16:57] VITALS: BP 132/80; PULSE 82; RESP 17; TEMP 36.8; O2SAT 95
== END 2023-12-16 16:55 | disposition home or self-care (01) ==
PROVIDERS: Emergency Provider Emergency Medicine; PCP Nurse Practitioner Family
DX: S20.219A Contusion of unspecified front wall of thorax, initial encounter (principal); W19.XXXA Unspecified fall, initial encounter; Z85.3 Personal history of malignant neoplasm of breast
CPT/HCPCS: 99283; 71046; 71100

== ENCOUNTER 2023-12-26 04:44 | Outpatient (CLI) | payer MEDICARE, SELFPAY ==
[2023-12-26 14:01] LABS: Abs Immature Grans 0.03 10^3/uL (0.0-0.06); Absolute Basophil Count 0.04 10^3/uL (0.0-0.2); Absolute Eosinophil Count 0.13 10^3/uL (0.0-0.7); Absolute Lymphocyte Count 2.15 10^3/uL (1.2-3.4); Absolute Monocyte Count 0.54 10^3/uL (0.1-0.8); Absolute Neutrophil Count 3.56 10^3/uL (1.2-6.7); Basophils % 0.6; HGB 15.9 g/dL (11.2-15.7); Immature Grans % 0.5; Lymphocytes % 33.3; MCHC 33.1 % (32.0-36.0); MCV 87 fL (80-95); MPV 8.3 fL (8.0-11.0); Monocytes % 8.4; Neutrophils % 55.2; Platelet Count 237 10^3/uL (130-400); RBC 5.49 10^6/uL (3.93-5.22); RDW 11.9 % (11.7-14.6); RDW-SD 38.1 fL; WBC 6.45 10^3/uL (4.4-10.8)
[2023-12-26 14:16] LABS: ALT 41 U/L (14-59); AST 28 U/L (15-37); Albumin 3.4 g/dL (3.4-5.0); Alkaline Phosphatase 82 U/L (46-116); Anion Gap 8.6 mmol/L (3-11); BUN 18 mg/dL (7-18); Bilirubin, Total 0.6 mg/dL (0.2-1.0); CO2 29.4 mmol/L (21.0-32.0); CREATININE 0.9 mg/dL (0.55-1.02); Calcium 9.7 mg/dL (8.5-10.1); Chloride 103 mmol/L (98-107); Estimated GFR 74.57 (mL/min/1.73m2); Glucose 97 mg/dL (74-106); Potassium 4.2 mmol/L (3.5-5.1); Sodium 141 mmol/L (136-145); Total Protein 7.5 g/dL (6.4-8.2)
[2023-12-28 17:03] LABS: Cancer Ag 15-3 13 U/mL (<30)
== END 2023-12-26 04:45 | disposition home or self-care (01) ==
LOC: LBO 04:44
PROVIDERS: PCP Nurse Practitioner Family; Visit Provider Internal Medicine
DX: C50.919 Malignant neoplasm of unspecified site of unspecified female breast (principal)
CPT/HCPCS: 36415; 80053; 86300; 85025

== ENCOUNTER 2024-02-12 15:23 | Emergency (ER) | payer MEDICARE, SELFPAY ==
[2024-02-12] VITALS (27 sets, daily range): BP systolic 97–127; BP diastolic 59–81; PULSE 63–86; RESP 16–27; TEMP 36.5; O2SAT 90–98
--- NOTE | 2024-02-12 15:15 | RT.EKG_ITS ---
APPROVED REPORT Exam: Resting ECG Reason for Exam: near syncope Patient Location: E HR:67 bpm ECG Measurements Heart Rate 67 AXIS [place] 158 P 11 QRSd 68 QRS -18 QT 417 T 36 QTc 442 Conclusion Sinus rhythm at a rate of 67 with normal intervals without acute ischemic change.
--- NOTE | 2024-02-12 15:48 | W.ED.GENAD ---
Discharge Plan Disposition Patient Disposition: Home Condition: Stable Discharge Details Clinical Impression: Lightheadedness Primary Care Provider: Lashell Penn ED Provider: Marie Dietz Home Meds and New Rx's Prescriptions: No Action acetaminophen [Tylenol] 325 MG tablet 325 mg PO DAILY multivitamin 1 EACH capsule 1 ea PO DAILY B-100 Complex 100 mg tablet extended release 1 tab PO DAILY citalopram [Celexa] 10 MG tablet 20 mg PO HS plmboei-imhtewnhm-fxqq 333-133-5 mg Tablet 1 tab PO DAILY Discharge Instructions Instructions: Near Syncope (ED), Lightheadedness (ED) Additional Instructions: Please follow-up with your primary care doctor. Return to the Emergency Department immediately with any worsening symptoms or any other concerns. HPI General Date/Time Provider Initiated Documentation: 02/12/24 15:32. HPI Narrative: The patient is a 58-year-old female with a history of breast cancer, depression who comes emergency department for feeling lightheaded. Reports prior to emergency room arrival she was at food shop, standing by the cashier and salesperson when she suddenly felt lightheaded. Reports she was felt like she was going to lose consciousness but had not. Reports that she was with a fence post driver who assisted her and brought her to the emergency department. Reports she has had similar episodes in the past but reports this does not happen frequently. Reports she had not fallen or injured herself. Reports she was at her baseline health prior, well enough to go food shopping. Denies any recent fevers or chills. Patient denies any chest pain or shortness of breath. Denies abdominal pain, nausea or vomiting. Denies changes of bowel habits. Denies noticing blood in her stool and denies changes in stool caliber or color. Denies taking any blood thinning medication. Denies any headache. Related Data Home Medications Medication Instructions Recorded Confirmed citalopram 10 mg tablet (Celexa) 20 mg PO HS 03/24/13 02/12/24 Tylenol 325 mg tablet 325 mg PO DAILY 11/20/17 02/12/24 (acetaminophen) multivitamin 1 ea PO DAILY 11/20/17 02/12/24 ceskizl-gkhkhzbse-fira 333 mg-133 1 tab PO DAILY 12/17/20 02/12/24 mg-5 mg tablet vit B complex 100 combo no.2 100 1 tab PO DAILY 01/10/23 02/12/24 mg tablet,extended release (B-100 Complex ER) Allergies Allergy/AdvReac Type Severity Reaction Status Date / Time aprepitant [From Emend] AdvReac Intermediate flushing Unverified 02/12/24 15:29 and cramping General Stated Complaint: Dizzy/Sync DAREN: 3 Review of Systems Narrative: Review of systems are negative except as mentioned. Exam Narrative Exam Narrative: The patient is in no acute distress. No midline C-spine tenderness is noted to palpation. Pupils are round, equal and reactive. No nystagmus noted. Oral mucosal membranes are moist. Heart is regular in rate and rhythm. Lungs are clear to auscultation bilaterally. Abdomen is soft with normal bowel sounds and nontender to palpation throughout. The patient has equal radial pulses. No lower extremity edema or tenderness noted to palpation. The patient has equal strength and sensation to bilateral upper and lower extremities. Her speech is clear. She has no facial asymmetry. Cranial nerves II to XII motor function are intact and equal. No limb ataxia noted. No pronator drift noted. NIH stroke scale score 0 at 1540. No truncal ataxia noted. HINTS testing is within normal limits. Skin is warm and dry. Course Vital Signs Vital signs: Vital Signs Temperature 36.5 C 02/12/24 15:21 Pulse 66 02/12/24 15:21 Respiratory Rate 18 02/12/24 15:21 Blood Pressure 112/64 02/12/24 15:21 Pulse Oximetry 96 02/12/24 15:21 Temperature 36.5 C 02/12/24 15:21 Temperature Source Temporal Artery Scan 02/12/24 15:21 Pulse 66 02/12/24 15:21 Respiratory Rate 18 02/12/24 15:21 Respiratory Effort Normal 02/12/24 15:41 Blood Pressure 112/64 02/12/24 15:21 Pulse Oximetry 96 02/12/24 15:21 Medical Decision Making Physical exam is benign which is reassuring. Will check the patient blood work and ordered a liter of normal saline in the meantime. Blood pressure is 99 systolic upon arrival. EKG is done and it is nondiagnostic. She is in sinus rhythm at a rate of 67 without acute ischemic changes normal intervals. The patient's workup is resulted and that is unremarkable. Blood work is baseline. EKG is nondiagnostic. Chest x-ray shows pulmonary nodule. I updated the patient on workup results. Patient is aware of the pulmonary nodule. Reports that this is being followed up by her oncologist. The patient is receiving IV fluids. Her blood pressure is improved. She continues to be asymptomatic. I will check her orthostatic vital signs after fluid is done. Orthosatic vital signs are benign. Patient is overall improved. Patient is informed of plan for discharge at this point. She is asked to follow-up with her primary care doctor but urged to return to the emergency department with any worsening symptoms or any other concerns. Quality:SDOH Health Related Social Needs: No Data to Display PFSH All Active Problems (Updated 02/12/24 @ 17:23 by Marie Dietz DO) Lightheadedness (Acute) Mixed incontinence urge and stress (Acute) Microscopic hematuria (Acute) Medical History Anxiety with depression HLD (hyperlipidemia) Left foot infection Lung mass 714X [place] inhalation medication. States she had several lung tumors treated with medication and when she blew her nose they all came out. Also had radiation and chemotherapy. Liver nodule Pneumonia Elevated blood sugar Balance problem Risk for falls UTI (urinary tract infection) Urinary frequency Metastatic breast cancer Seizure pt. states this was 2011, she had three tumors in her brain, only had the one seizure. States hasn't required any follow-up Degenerative joint disease Subclinical hyperthyroidism Surgical History History of lumpectomy of right breast 2007 History of brain tumor 3 brain tumors removed 2011. Social History Smoking/Tobacco Use Status: Current every day Tobacco Type: e-cigarettes Smoking risk assessment performed?: Yes Alcohol Intake: never Drug use: Occasionally Substance use type: marijuana Housing: house Current gender identity: female Do you feel safe at home: Yes Do you feel safe in your relationship?: Yes
[2024-02-12] MEDS: Normal Saline 1,000 ML 1000 ML IV (15:52)
[2024-02-12 15:58] LABS: Abs Immature Grans 0.03 10^3/uL (0.0-0.06); Absolute Basophil Count 0.05 10^3/uL (0.0-0.2); Absolute Eosinophil Count 0.12 10^3/uL (0.0-0.7); Absolute Lymphocyte Count 2.11 10^3/uL (1.2-3.4); Absolute Monocyte Count 0.53 10^3/uL (0.1-0.8); Absolute Neutrophil Count 3.75 10^3/uL (1.2-6.7); Basophils % 0.8; Eosinophils % 1.8; HCT 46.3 % (36.0-46.0); HGB 15.6 g/dL (11.2-15.7); Immature Grans % 0.5; MCH 29.1 pg (27.0-33.0); MCHC 33.7 % (32.0-36.0); MCV 86 fL (80-95); MPV 8.5 fL (8.0-11.0); Neutrophils % 56.9; Platelet Count 216 10^3/uL (130-400); RBC 5.36 10^6/uL (3.93-5.22); RDW 12.1 % (11.7-14.6); RDW-SD 38.2 fL; WBC 6.59 10^3/uL (4.4-10.8)
--- NOTE | 2024-02-12 16:11 | DI.RAD_ITS ---
Exam(s) XR PORTABLE CHEST AP EXAM: XR PORTABLE CHEST AP CLINICAL HISTORY: lightheadedness. TECHNIQUE: 2D digital imaging was performed. COMPARISON: CR,XR XR RIBS RT PA CHEST 3V from 12/16/2023 FINDINGS: Single AP portable view. Heart size is upper normal. The mediastinum is not widened. Surgical clip seen over the right breast. Right lung is clear. There is a nodular infiltrate in the lateral left lung. Measures approximately 8 x 9 mm. No other focal lung findings. No pleural effu sions. IMPRESSION: Noncalcified nodular infiltrate lower left lung field. This was an area of previous infiltrate on est x-ray of 12/16/2023. Recommend appropriate follow-up. There are no pleural effusions. DATA REPOSITORY: RADIATION DOSE DELIVERED:
[2024-02-12 16:25] LABS: ALT 34 U/L (14-59); AST 21 U/L (15-37); Albumin 3.4 g/dL (3.4-5.0); Alkaline Phosphatase 66 U/L (46-116); Anion Gap 14.1 mmol/L (3-11); BUN 20 mg/dL (7-18); Bilirubin, Total 0.6 mg/dL (0.2-1.0); CO2 22.9 mmol/L (21.0-32.0); Calcium 8.9 mg/dL (8.5-10.1); Chloride 105 mmol/L (98-107); Estimated GFR 65.71 (mL/min/1.73m2); Glucose 112 mg/dL (74-106); Potassium 3.6 mmol/L (3.5-5.1); Sodium 142 mmol/L (136-145); Total Protein 7.1 g/dL (6.4-8.2)
[2024-02-12 16:26] LABS: Troponin I < 50 ng/L (< or =60)
== END 2024-02-12 18:20 | disposition home or self-care (01) ==
PROVIDERS: Emergency Provider Emergency Medicine; PCP Nurse Practitioner Family
DX: R42 Dizziness and giddiness (principal); R91.8 Other nonspecific abnormal finding of lung field; Z85.3 Personal history of malignant neoplasm of breast; F17.290 Nicotine dependence, other tobacco product, uncomplicated
CPT/HCPCS: 36415; 80053; 82962; 93005; 96360; 99285; 71045; 84484; 85025; 93010; 99284

== ENCOUNTER → 2024-03-07 15:09 | Outpatient (BNVA) | payer MEDICARE, SELFPAY | PROVIDERS: PCP Nurse Practitioner Family; Referring Provider Nurse Practitioner Family; Visit Provider Nurse Practitioner Gerontology | DX: N39.46 Mixed incontinence (principal) | CPT/HCPCS: 51798; 99213 ==

== ENCOUNTER 2024-05-28 02:31 | Outpatient (CLI) | payer MEDICARE, SELFPAY ==
[2024-05-28 13:24] LABS: Abs Immature Grans 0.03 10^3/uL (0.0-0.06); Absolute Basophil Count 0.04 10^3/uL (0.0-0.2); Absolute Eosinophil Count 0.17 10^3/uL (0.0-0.7); Absolute Monocyte Count 0.45 10^3/uL (0.1-0.8); Absolute Neutrophil Count 3.39 10^3/uL (1.2-6.7); Basophils % 0.7 %; Eosinophils % 2.9 %; HCT 47.8 % (36.0-46.0); HGB 15.8 g/dL (11.2-15.7); Immature Grans % 0.5 %; Lymphocytes % 29.4 %; MCH 29.2 pg (27.0-33.0); MCHC 33.1 % (32.0-36.0); MCV 88 fL (80-95); MPV 8.4 fL (8.0-11.0); Monocytes % 7.8 %; Neutrophils % 58.7 %; Platelet Count 217 10^3/uL (130-400); RBC 5.41 10^6/uL (3.93-5.22); RDW 12.7 % (11.7-14.6); RDW-SD 40.6 fL; WBC 5.78 10^3/uL (4.4-10.8)
[2024-05-28 13:36] LABS: ALT 46 U/L (14-59); AST 26 U/L (15-37); Albumin 3.3 g/dL (3.4-5.0); Alkaline Phosphatase 69 U/L (46-116); Anion Gap 9.8 mmol/L (3-11); BUN 19 mg/dL (7-18); Bilirubin, Total 0.58 mg/dL (0.2-1.0); CO2 26.2 mmol/L (21.0-32.0); CREATININE 0.8 mg/dL (0.55-1.02); Calcium 8.9 mg/dL (8.5-10.1); Chloride 105 mmol/L (98-107); Estimated GFR 85.35 (mL/min/1.73m2); Glucose 124 mg/dL (74-106); Potassium 3.7 mmol/L (3.5-5.1); Sodium 141 mmol/L (136-145); Total Protein 7.1 g/dL (6.4-8.2)
[2024-05-29 17:40] LABS: Cancer Ag 15-3 12 U/mL (<30)
== END 2024-05-28 02:32 | disposition home or self-care (01) ==
LOC: LBO 02:31
PROVIDERS: Visit Provider Internal Medicine
DX: Z79.899 Other long term (current) drug therapy (principal); C50.919 Malignant neoplasm of unspecified site of unspecified female breast
CPT/HCPCS: 36415; 80053; 86300; 83735; 85025

== ENCOUNTER → 2024-06-27 14:00 | Outpatient (BNVA) | payer MEDICARE, SELFPAY | PROVIDERS: Visit Provider Nurse Practitioner Gerontology | DX: N39.46 Mixed incontinence (principal) | CPT/HCPCS: 51798; 99213 ==

== ENCOUNTER 2024-07-02 01:14 | Outpatient (CLI) | payer MEDICARE, SELFPAY ==
--- NOTE | 2024-07-02 | DI.NM_ITS ---
Exam(s) NM BONE SCAN WHOLE BODY GRP EXAM: NM BONE SCAN WHOLE BODY GRP CLINICAL HISTORY: BREAST CANCER METASTASIZED TO MULTIPLE SITES, UNSPEC LATERAILITY C50.919. TECHNIQUE: Injected Dose: 27.5 mCi Tc-99m MDP Delayed Images: 2-3 hours. COMPARISON: CT CT HEAD WO from 09/26/2022 FINDINGS: Symmetric axial uptake. Bilateral renal excretion is identified. Increased activity in the anterior ends of the lower right ribs in the anterior single left rib, pres umably posttraumatic. No other foci of suspicious labeling. IMPRESSION: No evidence of metastatic disease. Increased activity in the rib ends is likely posttraumatic. DATA REPOSITORY:
--- NOTE | 2024-07-02 | DI.CT_ITS ---
Exam(s) CT CHEST/ABD/PEL W EXAM: CT CHEST/ABD/PEL W CLINICAL HISTORY: BREAST CANCER METASTASIZED TO MULTIPLE SITES, UNSPEC LATERAILITY C50.919. TECHNIQUE: Imaging Protocol: Axial computed tomography images with coronal and sagittal reformatted images were created and reviewed CONTRAST MATERIAL: Intravenous: Omnipaque 350 Contrast volume:100 ml Oral: yes / COMPARISON: CT CT CHEST ABDOMEN PELVIS W CONTRAST (GENERIC) from 12/02/[address] CHEST W from 09/26/[address] CHEST PE CTA from 11/13/2023 FINDINGS: CHEST: Tracheobronchial tree: Patent. Pulmonary parenchyma: No consolidation. Stable 7 millimeter nodule superior segment left lower lobe. Stable scarring in the lingula. Pleura: No effusion or pneumothorax. Mediastinum: Within normal limits. Aorta: Thoracic portion non-dilated. Pulmonary arteries: No visible emboli. Heart: No pericardial effusion. Bones: Old right rib fractures. No lytic or blastic lesions.No compression fractures. Soft tissues: Stable bilateral thyroid nodules. Surgical clips in right breast. ABDOMEN and PELVIS: Liver: Severe fatty infiltration.. Multiple low-density lesions again noted which have increased in size compared with 2020. Large lesion in the right lobe measures 2.5 cm in greatest diameter compare d with 1.6 cm in 2020. No significant change from recent chest CT of November 15. Gallbladder and biliary tract: Gallstones. No wall thickening. No biliary dilatation. Pancreas: Normal density, no abnormal calcifications or inflammatory process. Spleen: Normal. Kidneys: Normal size, contour and axis. No radiodense stones. No obstructive uropathy. Right renal cyst. No suspicious masses seen. Adrenal glands: No masses seen. Aorta: Abdominal portion non-dilated. Lymph nodes: Within normal limits. Soft tissues: Unremarkable. Bladder: Unremarkable. Bowel: No obstruction or bowel wall thickening. Peritoneal cavity: No ascites. No focal collection. No mesenteric inflammatory response. No free ai r. Bones: No lytic or blastic lesions. Schmorl's node superior endplate of L5. Reproductive organs: Within normal limits. IMPRESSION: Stable nodule superior segment left lower lobe. Multiple low-density liver lesions have the appearance of cysts. They have increased in size when co mpared to 2020 but appears stable from the most recent chest CT. No new findings in the abdomen or pelvis. RADIATION DOSE DELIVERED: 392.16mGy.cm Total DLP DATA REPOSITORY: All CT scans at this facility are submitted to the National Radiology Data Registry (NRDR) Dose Index Registry (DIR) with the [employer] (ACR). RADIATION OPTIMIZATION: All CT scans at this facility use at least one of these dose optimization te chniques: automated exposure control; mA and/or kV adjustment per patient size (includes targeted exa ms where dose is matched to clinical indication); or iterative reconstruction.
[2024-07-02 09:22] LABS: Abs Immature Grans 0.02 10^3/uL (0.0-0.06); Absolute Basophil Count 0.06 10^3/uL (0.0-0.2); Absolute Eosinophil Count 0.27 10^3/uL (0.0-0.7); Absolute Lymphocyte Count 2.17 10^3/uL (1.2-3.4); Absolute Monocyte Count 0.51 10^3/uL (0.1-0.8); Absolute Neutrophil Count 3.58 10^3/uL (1.2-6.7); Basophils % 0.9 %; Eosinophils % 4.1 %; HCT 48.7 % (36.0-46.0); HGB 16.3 g/dL (11.2-15.7); Immature Grans % 0.3 %; Lymphocytes % 32.8 %; MCH 29.8 pg (27.0-33.0); MCHC 33.5 % (32.0-36.0); MCV 89 fL (80-95); MPV 8.2 fL (8.0-11.0); Monocytes % 7.7 %; Neutrophils % 54.2 %; Platelet Count 252 10^3/uL (130-400); RBC 5.47 10^6/uL (3.93-5.22); RDW 13.1 % (11.7-14.6); RDW-SD 42.6 fL; WBC 6.61 10^3/uL (4.4-10.8)
[2024-07-02 09:42] LABS: ALT 71 U/L (14-59); AST 37 U/L (15-37); Albumin 3.6 g/dL (3.4-5.0); Alkaline Phosphatase 78 U/L (46-116); Anion Gap 8.9 mmol/L (3-11); BUN 21 mg/dL (7-18); Bilirubin, Total 0.75 mg/dL (0.2-1.0); CO2 27.1 mmol/L (21.0-32.0); CREATININE 0.9 mg/dL (0.55-1.02); Calcium 8.6 mg/dL (8.5-10.1); Chloride 104 mmol/L (98-107); Glucose 102 mg/dL (74-106); Potassium 4.1 mmol/L (3.5-5.1); Sodium 140 mmol/L (136-145); Total Protein 7.6 g/dL (6.4-8.2)
[2024-07-02] MEDS: Normal Saline - Diluent 50 ML VIAL IJ (10:21)
[2024-07-02] MEDS: Omnipaque 350 MG/ML 500 ML BTL-Imaging package 100 ML IJ (10:22)
[2024-07-03 17:20] LABS: Cancer Ag 15-3 14 U/mL (<30)
== END 2024-07-02 01:34 ==
LOC: DI 01:14
PROVIDERS: Visit Provider Nurse Practitioner
DX: C50.911 Malignant neoplasm of unspecified site of right female breast (principal)
CPT/HCPCS: 74177; 78306; 80053; 86300; 71260; 85025

== ENCOUNTER → 2024-07-31 14:57 | Outpatient (BNVA) | payer MEDICARE, SELFPAY | PROVIDERS: Visit Provider Nurse Practitioner Gerontology | DX: N39.46 Mixed incontinence (principal) | CPT/HCPCS: 99442 ==

== ENCOUNTER 2024-10-24 03:11 | Emergency (ER) | payer MEDICARE, SELFPAY ==
[2024-10-24 03:21] VITALS: BP 121/78; PULSE 99; RESP 16; TEMP 37.2; O2SAT 96
[2024-10-24 03:22] VITALS: PULSE 95; RESP 16; O2SAT 93
--- NOTE | 2024-10-24 03:28 | ED.GENADUL_ITS ---
Discharge Plan Disposition Patient Disposition: Home Condition: Good Discharge Details Clinical Impression: Vomiting, Acute diarrhea Primary Care Provider: Unknown,Unknown ED Provider: Mattie Perry Home Meds and New Rx's Prescriptions: New ondansetron 4 mg tablet,disintegrating 4 mg PO Q8H PRNQty: 6 0RF Continued acetaminophen [Tylenol] 325 MG tablet 325 mg PO DAILY multivitamin 1 EACH capsule 1 ea PO DAILY (DME) Depend Underwear For Women S-M Misc See Rx Instructions TID Qty: 64 12RF Rx Instructions: Descrete underwear FOR WOMEN SIZE LARGE Gemtesa 75 mg tablet 75 mg PO DAILY Qty: 30 0RF Rx Instructions: Take in place of Myrbetriq citalopram [Celexa] 10 MG tablet 20 mg PO HS mcpbdle-gnysthnaa-fzuo 333-133-5 mg Tablet 1 tab PO DAILY Discharge Instructions Instructions: Nausea and Vomiting, Adult ED Additional Instructions: Ondansetron up to every 8 hours as needed for vomiting. Call your primary care doctor today to schedule an appointment for within the next 72 hours to followup on your visit here. Return to the emergency department for new or worsening symptoms including abdominal pain, inability to keep down fluids, or if you have any other concerns. HPI General Mode of arrival: EMS . Date/Time Provider Initiated Documentation: 10/24/24 03:15 . Limitations to Documentation: no limitations . Information obtained by: patient and EMS . HPI Narrative: 59yo F with hx metastatic breast cancer not currently on treatment presenting via EMS for N/V/D. Ate a bologna sandwich approximately one hour ago, shortly thereafter felt very nauseated, vomited and had an episode of diarrhea at the same time. No blood in stool or vomit. Feels much better now. No longer nausated. Otherwise in her usual state of health with no fevers, chills, rash, abdominal pain, dysuria, hematuria, head injuries, headache, chest pain, shortness of breath, or other concerns. Related Data Home Medications ?Medication ?Instructions ?Recorded ?Confirmed citalopram 10 mg tablet (Celexa) 20 mg PO HS 03/24/13 10/24/24 Tylenol 325 mg tablet 325 mg PO DAILY 11/20/17 10/24/24 (acetaminophen) multivitamin 1 ea PO DAILY 11/20/17 10/24/24 snixphi-maallznrb-ozdy 333 mg-133 1 tab PO DAILY 12/17/20 10/24/24 mg-5 mg tablet diaper,brief,adult,disposable #64 ea 07/11/24 10/24/24 (Depend Underwear For Women Small-Medium) vibegron 75 mg tablet (Gemtesa) 75 mg PO DAILY #30 tabs 10/22/24 10/24/24 ondansetron 4 mg disintegrating 4 mg PO Q8H PRN #6 tabs 10/24/24 tablet Previous Rx's ?Medication ?Instructions ?Recorded diaper,brief,adult,disposable #64 ea 07/11/24 (Depend Underwear For Women Small-Medium) vibegron 75 mg tablet (Gemtesa) 75 mg PO DAILY #30 tabs 10/22/24 ondansetron 4 mg disintegrating 4 mg PO Q8H PRN #6 tabs 10/24/24 tablet Allergies Allergy/AdvReac Type Severity Reaction Status Date / Time aprepitant (From Emend) AdvReac Intermediate flushing Verified 10/24/24 03:43 and cramping General DAREN: 3 Review of Systems Narrative: see HPI Exam Narrative Exam Narrative: General: Alert, well appearing, well nourished, in no acute distress. Head: Normocephalic, atraumatic Neck: Trachea midline, ?Neck supple. ENT: ?MMM.? No oropharygeal lesions or exudate. Cardiac: ?RRR, no murmurs appreciated Resp: No respiratory distress. CTAB. Abd: ?Soft, non-distended, nontender : ?No suprapubic tenderness. No CVA tenderness. Extremities: ?No deformities.? No peripheral edema. Neurologic: GCS 15. ? Moves all extremities freely against gravity Medical Decision Making 59yo F with hx metastatic breast cancer not currently on treatment presenting via EMS for N/V/D. Ate a bologna sandwich approximately one hour ago, shortly thereafter felt very nauseated, vomited and had an episode of diarrhea at the same time. Symptoms have entirely resolved. Per nursing pt had concerns about difficulty showering; to me she states that her son will help her at home and she has home PT starting in 2 days. Slightly tachycardic to 90's on arrival, vital signs otherwise reassuring. Well appearing on exam. No abdominal tenderness. Appears well hydrated. With single episode of emesis, no pain, and improving symptoms would not get labs or CT imaging at this time. Possibly food poisoning vs viral gastroenteritis. Will give PO zofran and PO challenge. On reassessment she remains well appearing with no further vomiting or stooling. Repeat VS reassuring, HR 80's-90's on the monitor. PO challenged and tolerated well. Ambulated steadily independently with walker (this is her baseline). Appropriate for discharge home to outpatient followup. Discharged home; discharge instructions and return precautions were reviewed with patient who verbalized understanding. All questions were answered and she is in full agreement with the plan. Quality:SDOH Health Related Social Needs: Health related social needs problems with daily activi ties (Z73.9), feeling lonely/isolated (Z60.8) PFSH All Active Problems (Updated 10/24/24 @ 04:58 by Mattie Perry MD) Acute diarrhea (Acute) Vomiting (Acute) Mixed incontinence urge and stress (Acute) Microscopic hematuria (Acute) Medical History Anxiety with depression HLD (hyperlipidemia) Left foot infection Lung mass 714X [place] inhalation medication. States she had several lung tumors treated with medication and when she blew her nose they all came out. Also had radiation and chemotherapy. Liver nodule Pneumonia Elevated blood sugar Balance problem Risk for falls UTI (urinary tract infection) Urinary frequency Metastatic breast cancer Seizure pt. states this was 2011, she had three tumors in her brain, only had the one seizure. States hasn't required any follow-up Degenerative joint disease Subclinical hyperthyroidism Surgical History History of lumpectomy of right breast 2006 History of brain tumor 3 brain tumors removed 2011. Social History Smoking/Tobacco Use Status: Current every day Tobacco Type: e-cigarettes Smoking risk assessment performed?: Yes Alcohol Intake: never Drug use: Occasionally Substance use type: marijuana Housing: house Current gender identity: female Do you feel safe at home: Yes Do you feel safe in your relationship?: Yes
[2024-10-24] MEDS: Ondansetron O.D.T. 4 MG TABEF PO (03:48)
[2024-10-24 03:50] VITALS: PULSE 95; O2SAT 96
[2024-10-24 05:55] VITALS: BP 138/81; PULSE 97; RESP 16; TEMP 37; O2SAT 95
== END 2024-10-24 06:12 | disposition home or self-care (01) ==
PROVIDERS: Emergency Provider Student in an Organized Health Care Education/Training Program
DX: R11.2 Nausea with vomiting, unspecified (principal); R19.7 Diarrhea, unspecified; E78.5 Hyperlipidemia, unspecified; F17.290 Nicotine dependence, other tobacco product, uncomplicated; Z85.3 Personal history of malignant neoplasm of breast; Z92.3 Personal history of irradiation

== ENCOUNTER 2025-04-23 20:25 | Outpatient (REF) | payer MEDICARE, SELFPAY ==
[2025-04-23 22:09] LABS: ALT 51 U/L (14-59); AST 30 U/L (15-37); Albumin 3.7 g/dL (3.4-5.0); Alkaline Phosphatase 74 U/L (46-116); Anion Gap 7.9 mmol/L (3-11); BUN 19 mg/dL (7-18); Bilirubin, Total 0.5 mg/dL (0.2-1.0); CO2 28.1 mmol/L (21.0-32.0); Calcium 9.2 mg/dL (8.5-10.1); Calculated LDL 115 mg/dL (<100); Chloride 106 mmol/L (98-107); Cholesterol 212 mg/dL (<200); Estimated GFR 84.82 (mL/min/1.73m2); Glucose 97 mg/dL (74-106); HDL Cholesterol 43 mg/dL (>or=50); Potassium 4.1 mmol/L (3.5-5.1); Sodium 142 mmol/L (136-145); TSH (W/Ref FT4) 0.03 uIU/mL (0.36-3.74); Total Protein 7.0 g/dL (6.4-8.2); Triglyceride 270 mg/dL (<150)
== END 2025-04-23 20:26 | disposition home or self-care (01) ==
LOC: NCHCN 20:25
PROVIDERS: PCP Nurse Practitioner Family; Visit Provider Student in an Organized Health Care Education/Training Program
DX: E78.5 Hyperlipidemia, unspecified (principal)
CPT/HCPCS: 80053; 80061; 84439; 84443

== ENCOUNTER → 2025-06-26 15:30 | Outpatient (BNVA) | payer MEDICARE, SELFPAY | PROVIDERS: PCP Nurse Practitioner Family; Referring Provider Nurse Practitioner Family; Visit Provider Nurse Practitioner Gerontology | DX: N39.46 Mixed incontinence (principal); R31.21 Asymptomatic microscopic hematuria; Z87.440 Personal history of urinary (tract) infections; R39.9 Unspecified symptoms and signs involving the genitourinary system | CPT/HCPCS: 99214; 51798 ==

== ENCOUNTER → 2025-07-15 07:40 | Outpatient (BNVA) | payer MEDICARE, SELFPAY | PROVIDERS: PCP Nurse Practitioner Family; Referring Provider Nurse Practitioner Family; Visit Provider Nurse Practitioner Gerontology | DX: N39.46 Mixed incontinence (principal); R31.9 Hematuria, unspecified | CPT/HCPCS: 99213 ==

== ENCOUNTER 2025-07-28 15:39 | Emergency (ER) | payer MEDICARE, SELFPAY ==
[2025-07-28] VITALS (20 sets, daily range): BP systolic 111–121; BP diastolic 69–84; PULSE 87–117; RESP 14–40; TEMP 36.8; O2SAT 86–96
--- NOTE | 2025-07-28 15:45 | RT.EKG_ITS ---
APPROVED REPORT Exam: Resting ECG Reason for Exam: altered mental status Patient Location: E HR:114 bpm ECG Measurements Heart Rate 114 AXIS [place] 151 P 54 QRSd 68 QRS -27 QT 327 T 55 QTc 450 Conclusion Sinus tachycardia, rate 114 No interval abnormalities No STEMI Compared to priors, rate has increased
--- NOTE | 2025-07-28 15:45 | DI.RAD_ITS ---
Exam(s) XR CHEST 2V PA LATERAL EXAM: XR CHEST 2V PA LATERAL CLINICAL HISTORY: fever. TECHNIQUE: 2D digital imaging was performed. COMPARISON: CR XR PORTABLE CHEST AP from 02/12/2024 FINDINGS: 2 views: Heart size is normal. The mediastinum is not widened. Right lung is clear. However, there is some mild infiltrate in the lingular segment of the left lung. No pleural effusions. IMPRESSION: Mild infiltrate adjacent to the left heart border in the lingular segment of the left lung. There are no pleural effusions. DATA REPOSITORY: RADIATION DOSE DELIVERED:
--- NOTE | 2025-07-28 15:55 | W.ED.GENAD ---
Discharge Plan Disposition Patient Disposition: Home Discharge Details Clinical Impression: Pneumonia, Fall, Facial laceration Primary Care Provider: Lashell Penn ED Provider: Steph Jane Home Meds and New Rx's Prescriptions: New amoxicillin-pot clavulanate 875-125 mg tablet 1 tab PO BID Qty: 10 0RF doxycycline hyclate 100 mg capsule 100 mg PO BID Qty: 10 0RF Continued Gemtesa 75 mg tablet 75 mg PO DAILY Qty: 30 2RF Rx Instructions: Take in place of Myrbetriq acetaminophen [Tylenol] 325 MG tablet 325 mg PO DAILY multivitamin 1 EACH capsule 1 ea PO DAILY (DME) Depend Underwear For Women S-M Misc See Rx Instructions TID Qty: 64 12RF Rx Instructions: Descrete underwear FOR WOMEN SIZE LARGE [id number]-vbkmiinzl-maib 333-133-5 mg Tablet 1 tab PO DAILY Discharge Instructions Additional Instructions: take antibiotic as prescribed increased fluids follow-up with pcp this week for recheck take tylenol as needed for pain return earlier with new or worsening complaints HPI General Date/Time Provider Initiated Documentation: 07/28/25 15:51. HPI Narrative: This 60-year-old female presents from [facility] for report of trip and fall on the curb hitting the right side of her face. Denies any loss of consciousness. History of breast cancer in remission. Per EMS report patient has been tangential and route. Patient denies any alcohol use or illicit substance use. Denies any urine complaints. Has chronic incontinence from radiation from which she received from her breast cancer. Related Data Home Medications ?Medication ?Instructions ?Recorded ?Confirmed Tylenol 325 mg tablet 325 mg PO DAILY 11/20/17 07/28/25 (acetaminophen) multivitamin 1 ea PO DAILY 11/20/17 07/28/25 rrgygvp-uqquyiequ-ujro 333 mg-133 1 tab PO DAILY 12/17/20 07/28/25 mg-5 mg tablet diaper,brief,adult,disposable #64 ea 07/11/24 07/28/25 (Depend Underwear For Women Small-Medium) vibegron 75 mg tablet (Gemtesa) 75 mg PO DAILY #30 tabs 06/26/25 07/28/25 amoxicillin 875 mg-potassium 1 tab PO BID #10 tabs 07/28/25 clavulanate 125 mg tablet doxycycline hyclate 100 mg capsule 100 mg PO BID #10 caps 07/28/25 Previous Rx's ?Medication ?Instructions ?Recorded diaper,brief,adult,disposable #64 ea 07/11/24 (Depend Underwear For Women Small-Medium) vibegron 75 mg tablet (Gemtesa) 75 mg PO DAILY #30 tabs 06/26/25 amoxicillin 875 mg-potassium 1 tab PO BID #10 tabs 07/28/25 clavulanate 125 mg tablet doxycycline hyclate 100 mg capsule 100 mg PO BID #10 caps 07/28/25 Allergies Allergy/AdvReac Type Severity Reaction Status Date / Time aprepitant (From Emend) AdvReac Intermediate flushing Verified 06/16/25 13:33 and cramping General Stated Complaint: AMS/LOC DAREN: 2 Exam Narrative Exam Narrative: Alert and ghhdbqea-[id number]-[id number] female no patient states spine tenderness lungs clear to auscultation sinus tachycardia without murmur no abdominal tenderness no evidence of trauma, nails 1+ inches bilaterally in her feet, debris noted in between toes, no obvious evidence of cellulitis visible signs of trauma to back GCS 15 answering questions appropriately Course Vital Signs Vital signs: Vital Signs Temperature 36.8 C 07/28/25 15:41 Pulse 111 H 07/28/25 15:41 Respiratory Rate 18 07/28/25 15:41 Blood Pressure 118/71 07/28/25 15:41 Pulse Oximetry 95 07/28/25 15:41 Temperature 36.8 C 07/28/25 15:48 Temperature Source Oral 07/28/25 15:48 Pulse 111 H 07/28/25 15:48 Respiratory Rate 18 07/28/25 15:48 Blood Pressure 118/71 07/28/25 15:48 Pulse Oximetry 95 07/28/25 15:48 Oxygen Delivery Method Room Air 07/28/25 15:48 Oxygen Flow Rate 0 07/28/25 15:48 Lab/Test Results Lab/Test Results: 07/28/25 15:52 Blood Blood Culture - Pending 07/28/25 15:52 Blood Blood Culture - Pending Medical Decision Making Results: Chest x-ray shows left middle lobe infiltrate, head CT shows no acute abnormality prior history of bilateral craniotomy lactate initially 2.2, likely secondary to dehydration. Repeat lactate 1.3 Assessment and plan: Patient presenting with a trip and fall secondary to chronic gait instability. Resides with her son. Pneumonia noted on chest x-ray will treat with oral antibiotics. Patient is ambulatory with steady gait with her cane. She has a small abrasion on her right cheek, this was cleansed and her tetanus is up-to-date. She is encouraged to apply bacitracin at home. She does have toe nails that require trimming, she will be placed on podiatry list for follow-up. Labs are reassuring. Recommendation for recheck with primary care physician this week return earlier with new or worsening complaints. Discharge vitals reassuring stable blood pressure and pulse for patient. Patient is not altered, she is at baseline mentation fully alert and oriented throughout the entirety of this visit. Quality:SDOH Health Related Social Needs: Health related social needs daily activities lonely/isolated PFSH All Active Problems (Updated 07/28/25 @ 19:31 by IRAJ Bar) Facial laceration (Acute) Fall (Acute) Pneumonia (Acute) Mixed incontinence urge and stress (Acute) Microscopic hematuria (Acute) Medical History Anxiety with depression HLD (hyperlipidemia) Left foot infection Lung mass [id number] [place] inhalation medication. States she had several lung tumors treated with medication and when she blew her nose they all came out. Also had radiation and chemotherapy. Liver nodule Pneumonia Elevated blood sugar Balance problem Risk for falls UTI (urinary tract infection) Urinary frequency Metastatic breast cancer Seizure pt. states this was 2011, she had three tumors in her brain, only had the one seizure. States hasn't required any follow-up Degenerative joint disease Subclinical hyperthyroidism Surgical History History of lumpectomy of right breast 2007 History of brain tumor 3 brain tumors removed 2011. Social History Smoking/Tobacco Use Status: Current every day Tobacco Type: e-cigarettes Smoking risk assessment performed?: Yes Alcohol Intake: never Drug use: Occasionally Substance use type: marijuana Housing: house Current gender identity: female Do you feel safe at home: Yes Do you feel safe in your relationship?: Yes
[2025-07-28 16:20] LABS: Abs Immature Grans 0.03 10^3/uL (0.0-0.06); HCT 45.7 % (36.0-46.0); HGB 15.2 g/dL (11.2-15.7); Immature Grans % 0.5 %; MCH 28.6 pg (27.0-33.0); MCHC 33.3 % (32.0-36.0); MCV 86 fL (80-95); MPV 8.5 fL (8.0-11.0); Platelet Count 224 10^3/uL (130-400); RBC 5.31 10^6/uL (3.93-5.22); RDW 13.2 % (11.7-14.6); RDW-SD 41.1 fL; WBC 6.56 10^3/uL (4.4-10.8)
[2025-07-28 16:45] LABS: ALT 44 U/L (14-59); AST 23 U/L (15-37); Albumin 3.4 g/dL (3.4-5.0); Alkaline Phosphatase 66 U/L (46-116); Anion Gap 11.2 mmol/L (3-11); BUN 23 mg/dL (7-18); Bilirubin, Total 0.5 mg/dL (0.2-1.0); CO2 24.8 mmol/L (21.0-32.0); Calcium 9.1 mg/dL (8.5-10.1); Chloride 107 mmol/L (98-107); Estimated GFR 73.64 (mL/min/1.73m2); Glucose 95 mg/dL (74-106); Magnesium 2.0 mg/dL (1.8-2.4); Potassium 4.0 mmol/L (3.5-5.1); Sodium 143 mmol/L (136-145); TSH (W/Ref FT4) 0.12 uIU/mL (0.36-3.74); Total Protein 6.8 g/dL (6.4-8.2); Troponin I 4 ng/L (<or=51)
[2025-07-28 17:03] LABS: Glucose Negative (Negative)
[2025-07-28 17:11] LABS: C & S Indicated? No; RBC 0-2 HPF (0-2)
--- NOTE | 2025-07-28 17:15 | DI.CT_ITS ---
Exam(s) CT HEAD CERV SPINE FACIAL WO EXAM: CT HEAD CERV SPINE FACIAL WO CLINICAL HISTORY: fall ,facial injuries. TECHNIQUE: Imaging Protocol: Axial computed tomography images with coronal and sagittal reformatted images were created and reviewed COMPARISON: CT CT BRAIN NECK CTA from 11/13/2023 FINDINGS: CT BRAIN: Bilateral craniotomies are again noted. Subjacent encephalomalacia in the left frontal lobe and right parietal region again noted. There are no skull fractures nor fluid in the visualized paranasal sinuses. There is no evidence of intracranial hemorrhage, mass effect, or shift of midline structures. There are no extra-axial fluid collections. The ventricles are not enlarged or shifted and there is no blood within the ventricular system nor within the basal cisterns. CT MAXILLOFACIAL BONES: There is no evidence of facial fractures nor fluid in the visualized paranasal sinuses. there is no evidence of orbital blowout fracture. CT CERVICAL SPINE: There is no evidence of fracture nor listhesis. No significant prevertebral soft tissue swelling. There is straightening of the cervical spine. There is chronic disc space narrowing at C5-6 and C6-7 levels. Small Luschka joint osteophytes noted bilaterally at C5-6 level. Facet joints unremarkable. No facet malalignment evident. No significant osseous lesions evident. IMPRESSION: No acute intracranial findings on this noninfused CT scan of the brain. No evidence of facial nor orbital blowout fractures. No evidence of cervical spine fracture, malalignment, nor acute compromise of the cervical spinal canal. Multilevel chronic degenerative disc disease. Report called by myself to ER 07/28/2025 at 6:09 p.m. RADIATION DOSE DELIVERED: 1,683.62mGy.cm Total DLP DATA REPOSITORY: All CT scans at this facility are submitted to the National Radiology Data Registry (NRDR) Dose Index Registry (DIR) with the [employer] (A[employer]). RADIATION OPTIMIZATION: All CT scans at this facility use at least one of these dose optimization techniques: automated exposure control; mA and/or kV adjustment per patient size (includes targeted exams where dose is matched to clinical indication); or iterative reconstruction.
[2025-07-28] MEDS: Normal Saline 1,000 ML 1000 ML IV (17:24)
[2025-07-28 17:28] LABS: Troponin I 4 ng/L (<or=51)
[2025-07-28 18:08] LABS: COVID-19 PCR Negative (Negative); RSV PCR Negative (Negative)
[2025-07-28] MEDS: Doxycycline Hyclate 100 MG, 2 CAPS/BTL PO (20:10)
[2025-07-28] MEDS: Amox. 875/Clav. 125, 2 TABS/BTL 1 TAB PO (20:10)
[2025-07-30 11:22] LABS: Lyme Ab w Rflx to Lyme Confirm Negative (Negative)
[2025-08-01 16:03] LABS: B. miyamotoi PCR Negative (Negative); Babesia divergens/MO-1 Negative (Negative); Ehrlichia muris eauclairensis Negative (Negative)
== END 2025-07-28 20:11 | disposition home or self-care (01) ==
PROVIDERS: Emergency Provider Physician Assistant; PCP Nurse Practitioner Family
DX: J18.9 Pneumonia, unspecified organism (principal); S01.411A Laceration without foreign body of right cheek and temporomandibular area, initial encounter; W01.0XXA Fall on same level from slipping, tripping and stumbling without subsequent striking against object, initial encounter
CPT/HCPCS: 99285; 99284; 36415; 36416; 82962; 80053; 87040; 87637; 87798; 93005; 96360; 70450; 70486; 71046; 72125; 81003; 81015; 83605; 83735; 84439; 84443; 84484; 85025; 86618; 93010